=== PATIENT | female | born 1960 | race Caucasian/White ===

== ENCOUNTER 2021-06-08 09:00 | Inpatient (IN) | payer BC, MEDICARE ==
[2021-06-08] MEDS ORDERED: ROCURONIUM 10 MG/ML (5 ML VIAL) IV STA (09:02)
[2021-06-08] MEDS ORDERED: ETOMIDATE 2 MG/ML 10 ML VIAL IVP STA (09:02)
[2021-06-08] MEDS ORDERED: MIDAZOLAM 1 MG/ML 5 ML VIAL IV STA (09:02)
[2021-06-08] MEDS ORDERED: IPRATROPIUM 0.5 MG/2.5 ML NEBU INHALATION STA (09:09)
[2021-06-08] MEDS ORDERED: methylPREDNISolone SOD SUCCI 125 MG/2 ML VIAL IV STA (09:09)
[2021-06-08] MEDS ORDERED: ALBUTEROL NEBULIZED 2.5 MG/3 ML INHALATION STA (09:09)
[2021-06-08] MEDS ORDERED: SODIUM CHLORIDE 0.9% 1,000 ML IV STA (09:09)
[2021-06-08] MEDS ORDERED: SODIUM CHLORIDE 0.9% 1,000 ML IV ONE (09:19)
--- NOTE | 2021-06-08 09:27 | ED ---
General Adult HPI - General Chief complaint: Shortness of Breath Stated complaint: Respiratory failure Time Seen by Provider: 06/08/21 09:09 Source: EMS, RN notes reviewed, old records reviewed Mode of arrival: EMS Limitations: altered mental status - History of Present Illness Initial comments: 60-year-old female who presents in severe respiratory distress. History is limited only to the paramedics report. Patient had EMS call for difficulty breathing and shortness of breath. Upon arrival patient was in severe respiratory distress. Agonal respirations, cyanotic, obtunded. 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 patient was receiving respiratory Support via BVM - Related Data Allergies Allergy/AdvReac Type Severity Reaction Status Date / Time Unable to Assess Allergy Verified 06/08/21 09:13 Review of Systems ROS Statement: Those systems with pertinent positive or pertinent negative responses have been documented in the HPI. ROS Other: All systems not noted in ROS Statement are negative. Past Medical History Past Medical History: COPD History of Any Multi-Drug Resistant Organisms: Unobtainable Past Surgical History: Unable to Obtain Past Alcohol Use History: Unable to Obtain Past Drug Use History: Unable to Obtain General Exam General appearance: obtunded, in distress Eye exam: Present: normal appearance, PERRL ENT exam: Present: mucous membranes dry Neck exam: Present: normal inspection. Absent: tenderness, meningismus Respiratory exam: Present: respiratory distress, decreased breath sounds Cardiovascular Exam: Present: normal rhythm, tachycardia GI/Abdominal exam: Present: soft. Absent: distended, tenderness, guarding Extremities exam: Present: normal inspection Neurological exam: Absent: alert Skin exam: Present: cyanosis Course Vital Signs 06/08/21 06/08/21 06/08/21 09:05 09:20 09:59 Temperature 97.3 F L Pulse Rate 122 H 114 H 100 Respiratory 34 H 16 16 Rate Blood Pressure 129/78 83/55 O2 Sat by Pulse 87 L 99 99 Oximetry - Reevaluation(s) Reevaluation #1: 06/08/21 09:[address] Padilla who is able to evaluate the patient emergency department. EKG Findings - EKG Comments: EKG Findings:: EKG: Sinus tachycardia possible ischemic changes including ST segment depression and T-wave inversion, no ST segment elevation, incomplete right bundle-branch block, rate of 111, MD interval 116, QRS duration 110, QTC 422. Procedures - Intubation Sedative: Etomidate Mg Given: 10 Paralytic: Rocuronium Mg Given: 50 Laryngoscope: Bolivar Size: 3 ET Tube Size: 7.5 ET Tube Uncuffed: No Tube Secured Depth (cm): 22 Tube Secured Location: lips Tube Placement Confirmation: visualized tube passing through cords, equal breath sounds bilaterally, no breath sounds over epigastrium, confirmation by capnometry Patient Tolerated Procedure: well Intubation Complications: none Medical Decision Making - Medical Decision Making Further history is obtained from the states that her breathing significantly worsened overnight. She recently started a new medication called Opsumit, she's taken a total of 3 doses. Patient does test positive for coronavirus. She has both venous and arterial blood gas indicating a hypercarbic respiratory failure. Symptoms related to COPD, Covid pneumonia. Chest x-ray showing airspace disease on the right greater than the left, developing ARDS versus multifocal pneumonia. Case discussed with the admitting physician Dr. Story, who will admit. Pulmonology placed on consult. Previous medical records from [facility] have been requested. - Lab Data Result diagrams: 06/08/21 09:20 06/08/21 09:20 Lab Results 06/08/21 06/08/21 06/08/21 Range/Units 09:20 09:20 09:20 WBC 12.4 H (3.8-10.6) k/uL RBC 4.68 (3.80-5.40) m/uL Hgb 13.8 (11.4-16.0) gm/dL Hct 45.0 (34.0-46.0) % MCV 96.1 (80.0-100.0) fL MCH 29.5 (25.0-35.0) pg MCHC 30.7 L (31.0-37.0) g/dL RDW 15.9 H (11.5-15.5) % Plt Count 236 (150-450) k/uL MPV 7.7 Neutrophils % 87 % Lymphocytes % 5 % Monocytes % 6 % Eosinophils % 1 % Basophils % 1 % Neutrophils # 10.7 H (1.3-7.7) k/uL Lymphocytes # 0.7 L (1.0-4.8) k/uL Monocytes # 0.7 (0-1.0) k/uL Eosinophils # 0.1 (0-0.7) k/uL Basophils # 0.1 (0-0.2) k/uL Hypochromasia Moderate PT 12.3 H (9.0-12.0) sec INR 1.2 H (<1.2) APTT 25.4 (22.0-30.0) sec Sample Site ABG pH (7.35-7.45) ABG pCO2 (35-45) mmHg ABG pO2 (83-108) mmHg ABG HCO3 (21-25) mmol/L ABG Total CO2 (19-24) mmol/L ABG O2 Saturation (94-97) % ABG Base Excess mmol/L Reid Test VBG pH (7.31-7.41) VBG pCO2 (37-51) mmHg VBG HCO3 (24-28) mmol/L FiO2 % Sodium 153 H (137-145) mmol/L Potassium 3.6 (3.5-5.1) mmol/L Chloride 100 (98-107) mmol/L Carbon Dioxide 23 (22-30) mmol/L Anion Gap 30 mmol/L BUN 20 H (7-17) mg/dL Creatinine 0.88 (0.52-1.04) mg/dL Est GFR (CKD-EPI)AfAm 82 (>60 ml/min/1.73 sqM) Est GFR (CKD-EPI)NonAf 71 (>60 ml/min/1.73 sqM) Glucose 51 L (74-99) mg/dL Plasma Lactic Acid Robert (0.7-2.0) mmol/L Calcium 7.7 L (8.4-10.2) mg/dL Magnesium 2.0 (1.6-2.3) mg/dL Total Bilirubin 1.4 H (0.2-1.3) mg/dL AST 56 H (14-36) U/L ALT 38 H (4-34) U/L Alkaline Phosphatase 223 H (38-126) U/L Troponin I (0.000-0.034) ng/mL Total Protein 7.1 (6.3-8.2) g/dL Albumin 3.7 (3.5-5.0) g/dL Coronavirus (PCR) (Not Detectd) 06/08/21 06/08/21 06/08/21 Range/Units 09:20 09:20 09:20 WBC (3.8-10.6) k/uL RBC (3.80-5.40) m/uL Hgb (11.4-16.0) gm/dL Hct (34.0-46.0) % MCV (80.0-100.0) fL MCH (25.0-35.0) pg MCHC (31.0-37.0) g/dL RDW (11.5-15.5) % Plt Count (150-450) k/uL MPV Neutrophils % % Lymphocytes % % Monocytes % % Eosinophils % % Basophils % % Neutrophils # (1.3-7.7) k/uL Lymphocytes # (1.0-4.8) k/uL Monocytes # (0-1.0) k/uL Eosinophils # (0-0.7) k/uL Basophils # (0-0.2) k/uL Hypochromasia PT (9.0-12.0) sec INR (<1.2) APTT (22.0-30.0) sec Sample Site ABG pH (7.35-7.45) ABG pCO2 (35-45) mmHg ABG pO2 (83-108) mmHg ABG HCO3 (21-25) mmol/L ABG Total CO2 (19-24) mmol/L ABG O2 Saturation (94-97) % ABG Base Excess mmol/L Reid Test VBG pH 7.20 L* (7.31-7.41) VBG pCO2 74 H* (37-51) mmHg VBG HCO3 28 (24-28) mmol/L FiO2 % Sodium (137-145) mmol/L Potassium (3.5-5.1) mmol/L Chloride (98-107) mmol/L Carbon Dioxide (22-30) mmol/L Anion Gap mmol/L BUN (7-17) mg/dL Creatinine (0.52-1.04) mg/dL Est GFR (CKD-EPI)AfAm (>60 ml/min/1.73 sqM) Est GFR (CKD-EPI)NonAf (>60 ml/min/1.73 sqM) Glucose (74-99) mg/dL Plasma Lactic Acid Robert 3.2 H* (0.7-2.0) mmol/L Calcium (8.4-10.2) mg/dL Magnesium (1.6-2.3) mg/dL Total Bilirubin (0.2-1.3) mg/dL AST (14-36) U/L ALT (4-34) U/L Alkaline Phosphatase (38-126) U/L Troponin I 0.329 H* (0.000-0.034) ng/mL Total Protein (6.3-8.2) g/dL Albumin (3.5-5.0) g/dL Coronavirus (PCR) (Not Detectd) 06/08/21 06/08/21 Range/Units 09:41 09:45 WBC (3.8-10.6) k/uL RBC (3.80-5.40) m/uL Hgb (11.4-16.0) gm/dL Hct (34.0-46.0) % MCV (80.0-100.0) fL MCH (25.0-35.0) pg MCHC (31.0-37.0) g/dL RDW (11.5-15.5) % Plt Count (150-450) k/uL MPV Neutrophils % % Lymphocytes % % Monocytes % % Eosinophils % % Basophils % % Neutrophils # (1.3-7.7) k/uL Lymphocytes # (1.0-4.8) k/uL Monocytes # (0-1.0) k/uL Eosinophils # (0-0.7) k/uL Basophils # (0-0.2) k/uL Hypochromasia PT (9.0-12.0) sec INR (<1.2) APTT (22.0-30.0) sec Sample Site Right Brachial ABG pH 7.20 L (7.35-7.45) ABG pCO2 82 H* (35-45) mmHg ABG pO2 125 H (83-108) mmHg ABG HCO3 32 H (21-25) mmol/L ABG Total CO2 35 H (19-24) mmol/L ABG O2 Saturation 97.0 (94-97) % ABG Base Excess 4.4 mmol/L Reid Test Yes VBG pH (7.31-7.41) VBG pCO2 (37-51) mmHg VBG HCO3 (24-28) mmol/L FiO2 100 % Sodium (137-145) mmol/L Potassium (3.5-5.1) mmol/L Chloride (98-107) mmol/L Carbon Dioxide (22-30) mmol/L Anion Gap mmol/L BUN (7-17) mg/dL Creatinine (0.52-1.04) mg/dL Est GFR (CKD-EPI)AfAm (>60 ml/min/1.73 sqM) Est GFR (CKD-EPI)NonAf (>60 ml/min/1.73 sqM) Glucose (74-99) mg/dL Plasma Lactic Acid Robert (0.7-2.0) mmol/L Calcium (8.4-10.2) mg/dL Magnesium (1.6-2.3) mg/dL Total Bilirubin (0.2-1.3) mg/dL AST (14-36) U/L ALT (4-34) U/L Alkaline Phosphatase (38-126) U/L Troponin I (0.000-0.034) ng/mL Total Protein (6.3-8.2) g/dL Albumin (3.5-5.0) g/dL Coronavirus (PCR) Detected A (Not Detectd) Critical Care Time Critical Care Time: Yes Total Critical Care Time: 35 Disposition Clinical Impression: Acute exacerbation of chronic obstructive pulmonary disease, COVID-19 Disposition: ADMITTED IP TO THIS [facility] Condition: Serious Is patient prescribed a controlled substance at d/c from ED?: No Referrals: None,Stated [REFERRING] - 1-2 days Decision to Admit Reason: Admit from EC Decision Date: 06/08/21 Decision Time: 10:08
[2021-06-08 09:28] LABS: Basophils # (A) 0.1 k/uL (0-0.2); Basophils % (A) 1 %; Eosinophils # (A) 0.1 k/uL (0-0.7); Eosinophils % (A) 1 %; HGB 13.8 gm/dL (11.4-16.0); Hypochromasia Moderate; Lymphocytes # (A) 0.7 k/uL (1.0-4.8); Lymphocytes % (A) 5 %; MCH 29.5 pg (25.0-35.0); MCHC 30.7 g/dL (31.0-37.0); MCV 96.1 fL (80.0-100.0); Mean Platelet Volume 7.7; Monocytes # (A) 0.7 k/uL (0-1.0); Monocytes % (A) 6 %; Neutrophils # (A) 10.7 k/uL (1.3-7.7); Neutrophils % (A) 87 %; Platelet Count 236 k/uL (150-450); RBC 4.68 m/uL (3.80-5.40); RDW 15.9 % (11.5-15.5); WBC 12.4 k/uL (3.8-10.6)
[2021-06-08] MEDS: MAGNESIUM SULFATE-D5W PMX 1 GM in DEXTROSE/WATER 1 100ML.BAG IVPB SCH ×2 (09:28→10:43)
[2021-06-08 09:29] LABS: VBG PH 7.2 (7.31-7.41)
[2021-06-08 09:36] LABS: INR 1.2 (<1.2); Partial Thromboplastin Time 25.4 sec (22.0-30.0); Prothrombin Time 12.3 sec (9.0-12.0)
[2021-06-08] MEDS ORDERED: IPRATROPIUM-ALBUTEROL 3 ML NEB INHALATION PRN (09:36)
[2021-06-08 09:37] LABS: Albumin 3.7 g/dL (3.5-5.0); Calcium 7.7 mg/dL (8.4-10.2); Potassium 3.6 mmol/L (3.5-5.1); Total Bilirubin 1.4 mg/dL (0.2-1.3); Total Protein 7.1 g/dL (6.3-8.2)
[2021-06-08 09:49] LABS: ABG Base Excess 4.4 mmol/L; ABG HCO3 32 mmol/L (21-25); ABG PO2 125 mmHg (83-108); ABG TCO2 35 mmol/L (19-24); Allen Test Performed? Yes
[2021-06-08 09:52] LABS: ABG PCO2 82 mmHg (35-45)
--- NOTE | 2021-06-08 10:06 | XR ---
EXAMINATION TYPE: XR chest 1V portable DATE OF EXAM: 06/08/2021 COMPARISON: NONE HISTORY: 60 years Female. STUDY INDICATION GIVEN: martin . TECHNIQUE: Frontal chest radiograph IMPRESSION: Tip of endotracheal tube in the midthoracic trachea. Enteric tube courses into the stomach. Bilateral right greater than left interstitial opacities may be reflective of ARDS or interstitial ed adryan. Bibasilar right greater than left opacities may be reflective of atelectasis or airspace disease . The heart size is mildly enlarged. No pneumothorax or significant effusion seen. No acute osseous abnormalities seen.
[2021-06-08] MEDS ORDERED: MIDAZOLAM HCL 50 MG in SODIUM CHLORIDE 0.9% 40 ML IV SCH (10:15)
--- NOTE | 2021-06-08 11:45 | P.CNPUL ---
History of Present Illness Consult date: 06/08/21 Requesting physician: Gretchen Story Reason for consult: dyspnea, COPD, hypoxemia, pneumonia, abnormal CXR/CT Chief complaint: Respiratory arrest. History of present illness: Pulmonary/critical care consult dated 06/08/2021. 60-year-old female, was brought in by EMS, with respiratory distress and respiratory failure. The patient arrived in the emergency department and was not moving any air. She was immediately intubated by the ER physician. The patient apparently complaining of difficulty breathing and shortness of breath. She apparently has never been at this hospital before. Not much information could be obtained. She had cyanosis, agonal respirations, and was obtunded. For that reason, she was intubated. 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 She apparently was receiving bag valve mask device in route. White count 12.4, hemoglobin 13.8, hematocrit 45, platelet count 236,000. PT 12.3 INR 1.2. Blood gases initially showed a pO2 of 125, pCO2 of 82, and pH is 7.2. Sodium 153, potassium 3.6, chlorides 100, CO2 23, anion gap 30, BUN 20, creatinine 0.88. Glucose 51 lactic acid 3.2 calcium 7.7 AST 56, and ALT 38. Troponin was 0.329. Coronavirus testing was positive. Chest x-ray showed bilateral right greater than left diffuse opacities, consistent with either interstitial edema, or interstitial pneumonia. Home medications included Macitentan, albuterol inhaler, vitamin D3, Spiriva, Symbicort, Coreg, potassium chloride, Lasix, iron, Lipitor, amlodipine. Based on these home medications, the patient appears to have COPD, hypertension, and hyperlipidemia. Review of Systems REVIEW OF SYSTEMS: CONSTITUTIONAL: [Negative.] NEUROLOGIC: [ Negative.] HEENT: [ Negative.] CARDIAC: [Negative.] PULMONARY: Severe shortness of breath. GI: [Negative.] : [Negative.] RHEUMATOLOGIC: [ Negative.] IMMUNOLOGIC: [ Negative.] ENDOCRINE: [Negative. ] DERMATOLOGIC: [Negative.] Past Medical History Past Medical History: COPD History of Any Multi-Drug Resistant Organisms: Unobtainable Past Surgical History: Unable to Obtain Past Alcohol Use History: Unable to Obtain Past Drug Use History: Unable to Obtain Medications and Allergies Home Medications Medication Instructions Recorded Confirmed Type Albuterol Sulfate [Ventolin HFA] 2 puff INHALATION RT-Q6H PRN 06/08/21 06/08/21 History Aspirin 81 mg PO DAILY 06/08/21 06/08/21 History Atorvastatin [Lipitor] 20 mg PO HS 06/08/21 06/08/21 History Budesonide/Formoterol Fumarate 1 puff INHALATION RT-BID 06/08/21 06/08/21 History [Symbicort 160-4.5 Mcg Inhaler] Cholecalciferol [Vitamin D3 (125 125 mcg PO DAILY 06/08/21 06/08/21 History Mcg = 5000 Iu)] Ferrous Sulfate [Feosol] 325 mg PO DAILY 06/08/21 06/08/21 History Furosemide [Lasix] 40 mg PO BID 06/08/21 06/08/21 History Macitentan [Opsumit] 10 mg PO DAILY 06/08/21 06/08/21 History Potassium Chloride ER [K-Dur 10] 10 meq PO BID 06/08/21 06/08/21 History Tiotropium Minter [Spiriva] 1 cap INHALATION RT-DAILY 06/08/21 06/08/21 History amLODIPine [Norvasc] 2.5 mg PO DAILY 06/08/21 06/08/21 History carvediloL [Coreg] 3.125 mg PO DAILY 06/08/21 06/08/21 History Allergies Allergy/AdvReac Type Severity Reaction Status Date / Time Sulfa (Sulfonamide Allergy Unknown Verified 06/08/21 10:40 Antibiotics) Physical Exam Osteopathic Statement: *. No significant issues noted on an osteopathic structural exam other than those noted in the History and Physical/Consult. Vitals: Vital Signs Temp Pulse Resp BP Pulse Ox 06/08/21 10:50 112 H 18 104/65 93 L 06/08/21 10:39 112 H 18 99/65 93 L 06/08/21 10:25 108 H 18 101/61 95 06/08/21 10:11 105 H 18 95/61 98 06/08/21 09:59 100 16 99 06/08/21 09:20 114 H 16 83/55 99 06/08/21 09:05 97.3 F L 122 H 34 H 129/78 87 L 06/08/21 09:01 34 H Intake and Output 06/07/21 06/08/21 06/08/21 22:59 06:59 14:59 Intake Total 0.45 Output Total 10 Balance -9.55 Intake: Intake, IV Titration 0.45 Amount Midazolam HCl 50 mg In 0.45 Sodium Chloride 0.9% 40 ml @ 1 MG/HR 1 mls/hr IV .Q24H [facility] Rx#:[id number] Output: Urine 10 Uretheral (Castillo) 10 Other: Weight 73.4 kg Currently intubated, with an orally placed endotracheal tube and NG tube. The patient is poorly responsive. HEENT examination is grossly unremarkable. Neck supple. Full range of motion. No adenopathy thyromegaly or neck vein distention. Cardiovascular examination reveals regular rhythm rate. S1-S2 normal. No S3 or S4. No discernible murmur noted. Heart sounds are distant. Heart rate 112 bpm. Lungs reveal coarse bilateral rhonchi. Mild expiratory wheezes. Breath sounds equal bilaterally. No crackles. Saturations are 93%. Abdomen is soft. No bowel sounds. No masses. Extremities reveal no edema or clubbing. There is acrocyanosis. Skin reveals livedo reticularis. Neurologic examination cannot be adequately assessed as the patient's currently sedated. Results - Laboratory Findings CBC and BMP: 06/08/21 09:20 06/08/21 09:20 ABG ABG pH 7.20 (7.35-7.45) L 06/08/21 09:45 ABG pCO2 82 mmHg (35-45) H* 06/08/21 09:45 ABG pO2 125 mmHg (83-108) H 06/08/21 09:45 ABG O2 Saturation 97.0 % (94-97) 06/08/21 09:45 PT/INR, D-dimer PT 12.3 sec (9.0-12.0) H 06/08/21 09:20 INR 1.2 (<1.2) H 06/08/21 09:20 Abnormal lab findings: Abnormal Labs 06/08/21 06/08/21 06/08/21 09:20 09:20 09:20 WBC 12.4 H MCHC 30.7 L RDW 15.9 H Neutrophils # 10.7 H Lymphocytes # 0.7 L PT 12.3 H INR 1.2 H ABG pH ABG pCO2 ABG pO2 ABG HCO3 ABG Total CO2 VBG pH VBG pCO2 Sodium 153 H BUN 20 H Glucose 51 L Plasma Lactic Acid Robert Calcium 7.7 L Total Bilirubin 1.4 H AST 56 H ALT 38 H Alkaline Phosphatase 223 H Troponin I Coronavirus (PCR) 06/08/21 06/08/21 06/08/21 09:20 09:20 09:20 WBC MCHC RDW Neutrophils # Lymphocytes # PT INR ABG pH ABG pCO2 ABG pO2 ABG HCO3 ABG Total CO2 VBG pH 7.20 L* VBG pCO2 74 H* Sodium BUN Glucose Plasma Lactic Acid Robert 3.2 H* Calcium Total Bilirubin AST ALT Alkaline Phosphatase Troponin I 0.329 H* Coronavirus (PCR) 06/08/21 06/08/21 09:41 09:45 WBC MCHC RDW Neutrophils # Lymphocytes # PT INR ABG pH 7.20 L ABG pCO2 82 H* ABG pO2 125 H ABG HCO3 32 H ABG Total CO2 35 H VBG pH VBG pCO2 Sodium BUN Glucose Plasma Lactic Acid Robert Calcium Total Bilirubin AST ALT Alkaline Phosphatase Troponin I Coronavirus (PCR) Detected A - Diagnostic Findings Chest x-ray: image reviewed Assessment and Plan Assessment: Acute hypoxemic respiratory failure, likely multifactorial, in part related to underlying COPD, but also possible coronavirus associated pneumonia. History of chronic hypoxemic respiratory failure. History of pulmonary hypertension, as the patient is on Opsumit. History of hypertension. History of hyperlipidemia. Plan: Plan dated 06/08/2021. The patient will be admitted to the intensive care unit. We anticipate putting a central line in, and a arterial line in. The patient will need the vent bundle orders place, as well as ICU admission orders additional recommendations and suggestions are forthcoming. She will need Decadron, and Lovenox. She also benefit from vitamins. We will start tube feedings right away. Additional recommendations and suggestions are forthcoming. We cannot comment about REM, as we don't know how long the patient has been sick, and also, her oxygen requirements are too high. Since she is ready on the ventilator, she is not a candidate for JUAN. Time with Patient: Greater than 30
[2021-06-08] MEDS ORDERED: SODIUM CHLORIDE 0.9% 500 ML 500 ML IV ONE ×2 (11:49→12:26)
[2021-06-08] MEDS ORDERED: IPRATROPIUM-ALBUTEROL 3 ML NEB INHALATION SCH (12:00)
[2021-06-08] MEDS ORDERED: methylPREDNISolone SOD SUCCI 125 MG/2 ML VIAL IV SCH (12:00)
[2021-06-08] MEDS ORDERED: NALOXONE 0.4 MG/ML 1 ML VIAL IV PRN (12:42)
[2021-06-08] MEDS ORDERED: ONDANSETRON 4 MG/2 ML VIAL IVP PRN (12:42)
--- NOTE | 2021-06-08 12:46 | P.HPIM ---
History of Present Illness H&P Date: 06/08/21 Discharge this 60-year-old female with past medical history of COPD on 3 L oxygen admitted to the hospital for increased shortness of breath for the last day or so the patient was found to be hypercapnic in the ER and in distress and was intubated patient is currently intubated and sedated Review of systems unable to get due to the current condition of the patient Constitutional: Intubated Eyes: Anicteric sclerae, moist conjunctiva, no lid-lag PERRLA ENMT: NC/AT Oropharynx clear, no erythema, exudates Neck: Supple, FROM, no masses, or JVD No carotid bruits No thyromegaly Lungs: C wheezy no accessory muscle use Cardiovascular: Heart regular in rate and rhythm, No murmurs, gallops, or rubs No peripheral edema Abdominal: Soft Nontender, no guarding, rebound or rigidity Abdomen moving with respiration Normoactive bowel sounds No hepatomegaly, No splenomegaly No palpable mass No abdominal wall hernia noted Skin: Normal temperature, tone, texture, turgor No induration No subcutaneous nodules No rash, lesions No ulcers Extremities: No digital cyanosis No clubbing Pedal pulses intact and symmetrical Radial pulses intact and symmetrical Normal gait and station No calf tenderness Psychiatric: Sedated Neuro: Muscles Strength 5/5 in all 4 extremities Sensation to light touch grossly present throughout Cranial nerves II-XII grossly intact No focal sensory deficits Acute on chronic respiratory failure likely due to COPD exacerbation continue patient on IV steroids as recommended by pulmonology Hypercapnia due to COPD exacerbation and respiratory failure continue patient on vent support We'll check cardiac enzymes Admitted to the intensive care unit Continue management as per ICU team Past Medical History Past Medical History: COPD History of Any Multi-Drug Resistant Organisms: Unobtainable Past Surgical History: Unable to Obtain Past Alcohol Use History: Unable to Obtain Past Drug Use History: Unable to Obtain Medications and Allergies Home Medications Medication Instructions Recorded Confirmed Type Albuterol Sulfate [Ventolin HFA] 2 puff INHALATION RT-Q6H PRN 06/08/21 06/08/21 History Aspirin 81 mg PO DAILY 06/08/21 06/08/21 History Atorvastatin [Lipitor] 20 mg PO HS 06/08/21 06/08/21 History Budesonide/Formoterol Fumarate 1 puff INHALATION RT-BID 06/08/21 06/08/21 History [Symbicort 160-4.5 Mcg Inhaler] Cholecalciferol [Vitamin D3 (125 125 mcg PO DAILY 06/08/21 06/08/21 History Mcg = 5000 Iu)] Ferrous Sulfate [Feosol] 325 mg PO DAILY 06/08/21 06/08/21 History Furosemide [Lasix] 40 mg PO BID 06/08/21 06/08/21 History Macitentan [Opsumit] 10 mg PO DAILY 06/08/21 06/08/21 History Potassium Chloride ER [K-Dur 10] 10 meq PO BID 06/08/21 06/08/21 History Tiotropium Arrey [Spiriva] 1 cap INHALATION RT-DAILY 06/08/21 06/08/21 History amLODIPine [Norvasc] 2.5 mg PO DAILY 06/08/21 06/08/21 History carvediloL [Coreg] 3.125 mg PO DAILY 06/08/21 06/08/21 History Allergies Allergy/AdvReac Type Severity Reaction Status Date / Time Sulfa (Sulfonamide Allergy Unknown Verified 06/08/21 10:40 Antibiotics) Physical Exam Vitals: Vital Signs Temp Pulse Resp BP Pulse Ox 06/08/21 11:57 92 18 70/48 92 L 06/08/21 11:45 92 18 67/44 91 L 06/08/21 11:40 96 18 66/47 91 L 06/08/21 11:10 124 H 24 110/66 90 L 06/08/21 10:50 112 H 18 104/65 93 L 06/08/21 10:39 112 H 18 99/65 93 L 06/08/21 10:25 108 H 18 101/61 95 06/08/21 10:11 105 H 18 95/61 98 06/08/21 09:59 100 16 99 06/08/21 09:20 114 H 16 83/55 99 06/08/21 09:05 97.3 F L 122 H 34 H 129/78 87 L 06/08/21 09:01 34 H Intake and Output 06/07/21 06/08/21 06/08/21 22:59 06:59 14:59 Intake Total 8.250 Output Total 10 Balance -1.750 Intake: Intake, IV Titration 8.250 Amount Midazolam HCl 50 mg In 1.917 Sodium Chloride 0.9% 40 ml @ 1 MG/HR 1 mls/hr IV .Q24H [facility] Rx#:[id number] propofoL 1,000 mg In 6.333 Empty Bag 1 bag @ Titrate IV .Q0M [facility] Rx#: [id number] Output: Urine 10 Uretheral (Castillo) 10 Other: Weight 73.4 kg Results CBC & Chem 7: 06/08/21 09:20 06/08/21 09:20 Labs: Abnormal Lab Results - Last 24 Hours (Table) 06/08/21 06/08/21 06/08/21 Range/Units 09:20 09:20 09:20 WBC 12.4 H (3.8-10.6) k/uL MCHC 30.7 L (31.0-37.0) g/dL RDW 15.9 H (11.5-15.5) % Neutrophils # 10.7 H (1.3-7.7) k/uL Lymphocytes # 0.7 L (1.0-4.8) k/uL PT 12.3 H (9.0-12.0) sec INR 1.2 H (<1.2) ABG pH (7.35-7.45) ABG pCO2 (35-45) mmHg ABG pO2 (83-108) mmHg ABG HCO3 (21-25) mmol/L ABG Total CO2 (19-24) mmol/L VBG pH (7.31-7.41) VBG pCO2 (37-51) mmHg Sodium 153 H (137-145) mmol/L BUN 20 H (7-17) mg/dL Glucose 51 L (74-99) mg/dL Plasma Lactic Acid Robert (0.7-2.0) mmol/L Calcium 7.7 L (8.4-10.2) mg/dL Total Bilirubin 1.4 H (0.2-1.3) mg/dL AST 56 H (14-36) U/L ALT 38 H (4-34) U/L Alkaline Phosphatase 223 H (38-126) U/L Troponin I (0.000-0.034) ng/mL Coronavirus (PCR) (Not Detectd) 06/08/21 06/08/21 06/08/21 Range/Units 09:20 09:20 09:20 WBC (3.8-10.6) k/uL MCHC (31.0-37.0) g/dL RDW (11.5-15.5) % Neutrophils # (1.3-7.7) k/uL Lymphocytes # (1.0-4.8) k/uL PT (9.0-12.0) sec INR (<1.2) ABG pH (7.35-7.45) ABG pCO2 (35-45) mmHg ABG pO2 (83-108) mmHg ABG HCO3 (21-25) mmol/L ABG Total CO2 (19-24) mmol/L VBG pH 7.20 L* (7.31-7.41) VBG pCO2 74 H* (37-51) mmHg Sodium (137-145) mmol/L BUN (7-17) mg/dL Glucose (74-99) mg/dL Plasma Lactic Acid Robert 3.2 H* (0.7-2.0) mmol/L Calcium (8.4-10.2) mg/dL Total Bilirubin (0.2-1.3) mg/dL AST (14-36) U/L ALT (4-34) U/L Alkaline Phosphatase (38-126) U/L Troponin I 0.329 H* (0.000-0.034) ng/mL Coronavirus (PCR) (Not Detectd) 06/08/21 06/08/21 Range/Units 09:41 09:45 WBC (3.8-10.6) k/uL MCHC (31.0-37.0) g/dL RDW (11.5-15.5) % Neutrophils # (1.3-7.7) k/uL Lymphocytes # (1.0-4.8) k/uL PT (9.0-12.0) sec INR (<1.2) ABG pH 7.20 L (7.35-7.45) ABG pCO2 82 H* (35-45) mmHg ABG pO2 125 H (83-108) mmHg ABG HCO3 32 H (21-25) mmol/L ABG Total CO2 35 H (19-24) mmol/L VBG pH (7.31-7.41) VBG pCO2 (37-51) mmHg Sodium (137-145) mmol/L BUN (7-17) mg/dL Glucose (74-99) mg/dL Plasma Lactic Acid Robert (0.7-2.0) mmol/L Calcium (8.4-10.2) mg/dL Total Bilirubin (0.2-1.3) mg/dL AST (14-36) U/L ALT (4-34) U/L Alkaline Phosphatase (38-126) U/L Troponin I (0.000-0.034) ng/mL Coronavirus (PCR) Detected A (Not Detectd)
[2021-06-08] MEDS ORDERED: CISATRACURIUM 2 MG/ML 5 ML VIAL IV ONE (14:11)
--- NOTE | 2021-06-08 14:50 | PCN ---
PROCEDURE NOTE PULMONARY/CRITICAL CARE PROCEDURE NOTE: Placement of left internal jugular triple-lumen catheter. PREOPERATIVE DIAGNOSIS: Administration of fluids and pressors. POSTOPERATIVE DIAGNOSIS: Administration of fluids and pressors. OPERATORS: 1. Dr. Padilla. 2. Dr. Flowers. PROCEDURE DESCRIPTION: A universal timeout was completed verifying correct patient, procedure, site, positioning, and implant(s) or special equipment if applicable. The patient was placed in a dependent position appropriate for triple lumen catheter placement based on the vein to be cannulated. The patient's left neck was prepped and draped in sterile fashion. 1% Lidocaine was used to anesthetize the surrounding skin area. A triple lumen 9F Cordis catheter was introduced into the left internal jugular vein using Seldinger technique from the posterior approach. The catheter was threaded smoothly over the guide wire and appropriate blood return was obtained. There was blood return from all 3 ports. Each lumen of the catheter was evacuated of air and flushed with sterile saline. The catheter was then sutured in place to the skin and a sterile dressing applied by the nurse. Perfusion to the extremity distal to the point of catheter insertion was checked and found to be adequate. The patient tolerated the procedure well. A chest x-ray was ordered to check placement and rule out complication. There was no immediate complication. The patient tolerated the procedure well without difficulty. MMODL / IJN: [id number] /
--- NOTE | 2021-06-08 14:50 | PCN ---
PROCEDURE NOTE PULMONARY/CRITICAL CARE PROCEDURE NOTE: Placement of left radial arterial line. OPERATORS: 1. Dr. Padilla. 2. Dr. Flowers. PREOPERATIVE DIAGNOSIS: Frequent blood draws and blood gas monitoring. POSTOPERATIVE DIAGNOSIS: Frequent blood draws and blood gas monitoring. PROCEDURE DESCRIPTION: A universal time-out was completed verifying correct patient, procedure, site, positioning, and implant(s) or special equipment if applicable. Reid's test was performed to ensure adequate perfusion. The patient's left wrist was prepped and draped in sterile fashion. 1% Lidocaine was used to anesthetize the area. An 18G Arrow arterial line was introduced into the left radial artery. The catheter was threaded over the guide wire and the needle was removed with appropriate pulsatile blood return. There was good waveform and blood pressure reading. Blood loss was minimal. The catheter was then sutured in place to the skin and a sterile dressing applied by the nurse. Perfusion to the extremity distal to the point of catheter insertion was checked and found to be adequate. There was no immediate complication. MMODL / IJN: [id number] /
[2021-06-08] MEDS: NOREPINEPHRINE 8 MG in SODIUM CHLORIDE 0.9% 250 ML IV SCH (14:52)
--- NOTE | 2021-06-08 15:08 | XR ---
EXAMINATION TYPE: XR chest 1V portable DATE OF EXAM: 06/08/2021 COMPARISON: NONE HISTORY: Respiratory failure TECHNIQUE: 2 views upright FINDINGS: Endotracheal tube is 5 cm from the julee. There is some pulmonary interstitial edema. Hear t is enlarged. There is slight blunting of the costophrenic angles. There is nasogastric tube in the stomach. There are chest leads. There is left jugular catheter with tip in the superior vena cava. IMPRESSION: Mild congestive heart failure. No change.
[2021-06-08 15:14] LABS: ABG Base Excess -1.4 mmol/L; ABG HCO3 28 mmol/L (21-25); ABG Oxygen Saturation 94.4 % (94-97); ABG PCO2 76 mmHg (35-45); ABG PH 7.19 (7.35-7.45); ABG PO2 87 mmHg (83-108)
--- NOTE | 2021-06-08 16:32 | ECHOF ---
Referral Reason:Abnormal troponin, respiratory failure MEASUREMENTS -------- HEIGHT: 157.5 cm WEIGHT: 73.0 kg BP: RVIDd: 4.2 cm (< 3.3) IVSd: 0.9 cm (0.6 - 1.1) LVIDd: 4.0 cm (3.9 - 5.3) LVPWd: 1.8 cm (0.6 - 1.1) IVSs: 1.4 cm LVIDs: 2.6 cm LVPWs: 1.9 cm Ao Diam: 2.9 cm (2.0 - 3.7) AV Cusp: 1.8 cm (1.5 - 2.6) RAP: 15.00 mmHg RVSP: 91.06 mmHg FINDINGS -------- Sinus rhythm. Limited echo due to Covid 19 exposure. Overall left ventricular systolic function is low-normal with, an EF between 50 - 55 %. The right ventricle is severely enlarged. The right ventricular septal wall is flattened in diastol e and systole which is consistent with right ventricular volume and pressure overload. Moderate to severe tricuspid regurgitation present. There is severe pulmonary hypertension. The r ight ventricular systolic pressure, as measured by Doppler, is 91.06mmHg. CONCLUSIONS -------- 1. Limited echo due to Covid 19 exposure. 2. Overall left ventricular systolic function is low-normal with, an EF between 50 - 55 %. 3. The right ventricle is severely enlarged. 4. The right ventricular septal wall is flattened in diastole and systole which is consistent with r ight ventricular volume and pressure overload. 5. Moderate to severe tricuspid regurgitation present. 6. There is severe pulmonary hypertension. 7. The right ventricular systolic pressure, as measured by Doppler, is 91.06mmHg. [employer]: Clare Farley RDCS
[2021-06-08 18:29] LABS: Glucose,Whole Blood 115 mg/dL (75-99)
[2021-06-08] MEDS: CHLORHEXIDINE GLUCONATE 15 ML CUP MUCOUS MEM SCH (21:00)
[2021-06-09 00:21] LABS: Glucose,Whole Blood 148 mg/dL (75-99)
[2021-06-09] MEDS: NOREPINEPHRINE 8 MG in SODIUM CHLORIDE 0.9% 250 ML IV SCH ×2 (02:56→12:05)
[2021-06-09 05:07] LABS: Basophils % (A) 0 %; Eosinophils % (A) 0 %; HCT 40.5 % (34.0-46.0); HGB 12.9 gm/dL (11.4-16.0); Lymphocytes # (A) 0.4 k/uL (1.0-4.8); Lymphocytes % (A) 2 %; MCH 29.8 pg (25.0-35.0); MCHC 31.9 g/dL (31.0-37.0); MCV 93.4 fL (80.0-100.0); Mean Platelet Volume 8.7; Monocytes # (A) 0.7 k/uL (0-1.0); Monocytes % (A) 4 %; Neutrophils # (A) 16.2 k/uL (1.3-7.7); Neutrophils % (A) 93 %; Platelet Count 202 k/uL (150-450); RBC 4.34 m/uL (3.80-5.40); RDW 15.8 % (11.5-15.5); WBC 17.4 k/uL (3.8-10.6)
[2021-06-09 05:20] LABS: ALT 45 U/L (4-34); AST 65 U/L (14-36); African American GFR (CKD) >90 (>60 ml/min/1.73 sqM); Albumin 3.1 g/dL (3.5-5.0); Alkaline Phosphatase 243 U/L (38-126); Anion Gap 4 mmol/L; Blood Urea Nitrogen 27 mg/dL (7-17); Calcium 8.5 mg/dL (8.4-10.2); Carbon Dioxide 28 mmol/L (22-30); Chloride 104 mmol/L (98-107); Glucose 148 mg/dL (74-99); Non-African American GFR(CKD) 88 (>60 ml/min/1.73 sqM); Potassium 3.7 mmol/L (3.5-5.1); Sodium 136 mmol/L (137-145); Total Bilirubin 1.5 mg/dL (0.2-1.3); Total Protein 6.6 g/dL (6.3-8.2)
[2021-06-09 05:56] LABS: ABG Base Excess 1.8 mmol/L; ABG HCO3 28 mmol/L (21-25); ABG Oxygen Saturation 97.4 % (94-97); ABG PCO2 52 mmHg (35-45); ABG PH 7.34 (7.35-7.45); ABG PO2 99 mmHg (83-108); ABG TCO2 29 mmol/L (19-24)
[2021-06-09 06:12] LABS: Allen Test Performed? No
[2021-06-09 06:45] LABS: Glucose,Whole Blood 142 mg/dL (75-99)
[2021-06-09] MEDS: ZINC SULFATE 220 MG CAP PO SCH (08:08)
[2021-06-09] MEDS: CHOLECALCIFEROL 125 MCG (5000 IU) TABLET PO SCH (08:08)
[2021-06-09] MEDS: ASCORBIC ACID 500 MG TAB PO SCH (08:08)
[2021-06-09] MEDS: DEXAMETHASONE SOD PHOSPHATE 10 MG/ML 1 ML VIAL IVP SCH (08:08)
[2021-06-09] MEDS: CHLORHEXIDINE GLUCONATE 15 ML CUP MUCOUS MEM SCH ×2 (08:08→21:44)
[2021-06-09] MEDS: ENOXAPARIN 40 MG/0.4 ML SYRINGE SQ SCH (08:09)
--- NOTE | 2021-06-09 08:20 | XR ---
EXAMINATION TYPE: XR chest 1V portable DATE OF EXAM: 06/09/2021 Comparison: 06/08/2021 Clinical History: 60-year-old female Tube placement Findings: ET tube tip at the level of the medial clavicular heads. NG tube courses below the diaphragm. Left CV C tip at the cavoatrial junction. Heart mildly enlarged. Hyperinflation. Interstitial changes show sl ight improvement. Patchy bibasilar opacities persist, slightly worsened on the right. Trace pleural e ffusions persist. Impression: COPD and mild cardiomegaly. Interstitial changes show slight improvement. Small effusions as well as patchy bibasilar airspace disease persists, slightly worsened at the right base.
--- NOTE | 2021-06-09 11:20 | P.HPIM ---
History of Present Illness H&P Date: 06/09/21 his 60-year-old female with past medical history of COPD on 3 L oxygen admitted to the hospital for increased shortness of breath for the last day or so the patient was found to be hypercapnic in the ER and in distress and was intubated patient is currently intubated and sedated Review of systems unable to get due to the current condition of the patient Constitutional: Intubated Eyes: Anicteric sclerae, moist conjunctiva, no lid-lag PERRLA ENMT: NC/AT Oropharynx clear, no erythema, exudates Neck: Supple, FROM, no masses, or JVD No carotid bruits No thyromegaly Lungs: C wheezy no accessory muscle use Cardiovascular: Heart regular in rate and rhythm, No murmurs, gallops, or rubs No peripheral edema Abdominal: Soft Nontender, no guarding, rebound or rigidity Abdomen moving with respiration Normoactive bowel sounds No hepatomegaly, No splenomegaly No palpable mass No abdominal wall hernia noted Skin: Normal temperature, tone, texture, turgor No induration No subcutaneous nodules No rash, lesions No ulcers Extremities: No digital cyanosis No clubbing Pedal pulses intact and symmetrical Radial pulses intact and symmetrical Normal gait and station No calf tenderness Psychiatric: Sedated Neuro: Muscles Strength 5/5 in all 4 extremities Sensation to light touch grossly present throughout Cranial nerves II-XII grossly intact No focal sensory deficits Acute on chronic respiratory failure likely due to COPD exacerbation continue patient on IV steroids as recommended by pulmonology Hypercapnia due to COPD exacerbation and respiratory failure continue patient on vent support We'll check cardiac enzymes Admitted to the intensive care unit Continue management as per ICU team Patient continues to be intubated overall stable continue management as per ICU team Past Medical History Past Medical History: COPD History of Any Multi-Drug Resistant Organisms: Unobtainable Past Surgical History: Unable to Obtain Past Anesthesia/Blood Transfusion Reactions: Unable to Obtain Smoking Status: Former smoker Past Alcohol Use History: Unable to Obtain Past Drug Use History: Unable to Obtain Medications and Allergies Home Medications Medication Instructions Recorded Confirmed Type Albuterol Sulfate [Ventolin HFA] 2 puff INHALATION RT-Q6H PRN 06/08/21 06/08/21 History Aspirin 81 mg PO DAILY 06/08/21 06/08/21 History Atorvastatin [Lipitor] 20 mg PO HS 06/08/21 06/08/21 History Budesonide/Formoterol Fumarate 1 puff INHALATION RT-BID 06/08/21 06/08/21 History [Symbicort 160-4.5 Mcg Inhaler] Cholecalciferol [Vitamin D3 (125 125 mcg PO DAILY 06/08/21 06/08/21 History Mcg = 5000 Iu)] Ferrous Sulfate [Feosol] 325 mg PO DAILY 06/08/21 06/08/21 History Furosemide [Lasix] 40 mg PO BID 06/08/21 06/08/21 History Macitentan [Opsumit] 10 mg PO DAILY 06/08/21 06/08/21 History Potassium Chloride ER [K-Dur 10] 10 meq PO BID 06/08/21 06/08/21 History Tiotropium [place] [Spiriva] 1 cap INHALATION RT-DAILY 06/08/21 06/08/21 History amLODIPine [Norvasc] 2.5 mg PO DAILY 06/08/21 06/08/21 History carvediloL [Coreg] 3.125 mg PO DAILY 06/08/21 06/08/21 History Allergies Allergy/AdvReac Type Severity Reaction Status Date / Time Sulfa (Sulfonamide Allergy Unknown Verified 06/08/21 10:40 Antibiotics) Physical Exam Vitals: Vital Signs Temp Pulse Resp BP Pulse Ox 06/09/21 10:00 84 24 113/67 97 06/09/21 09:00 87 24 114/68 100 06/09/21 08:00 87 24 119/66 96 06/09/21 07:15 89 24 119/66 99 06/09/21 07:00 91 24 100 06/09/21 06:45 92 24 100 06/09/21 06:30 94 24 100 06/09/21 06:15 96 24 97 06/09/21 06:00 97 24 129/74 98 06/09/21 05:45 100 24 96 06/09/21 05:30 86 24 99 06/09/21 05:15 87 24 123/69 97 06/09/21 05:00 89 24 98 06/09/21 04:45 87 24 97 06/09/21 04:30 85 24 97 06/09/21 04:15 85 24 112/60 97 06/09/21 04:00 84 23 06/09/21 03:45 85 24 97 06/09/21 03:30 84 24 97 06/09/21 03:15 84 24 121/68 97 06/09/21 03:00 83 24 96 06/09/21 02:45 70 24 96 06/09/21 02:30 82 24 97 02 02:15 82 24 107/59 96 06/09/21 02:00 82 24 99/57 97 06/09/21 01:45 81 24 96 06/09/21 01:30 82 24 97 06/09/21 01:15 82 24 98 06/09/21 01:00 82 24 99/57 97 06/09/21 00:45 84 24 98 06/09/21 00:30 85 24 100 06/09/21 00:15 86 24 99 06/09/21 00:00 87 24 131/75 98 02 23:45 82 24 100 02 23:30 82 24 99 02 23:15 84 24 102/57 100 02 23:00 81 24 98 02 22:45 82 24 99 02 22:30 83 24 99 02 22:15 82 24 116/61 100 02 22:00 86 24 100 02 21:45 86 24 100 02 21:30 86 24 100 02 21:15 86 24 117/71 100 02 21:00 85 24 100 02 20:45 85 24 100 02 20:30 81 24 100 02 20:15 81 24 100 02 20:00 82 24 100 0222 19:45 81 24 99 0222 19:30 81 24 100 0222 19:15 81 24 100 02 19:00 81 24 87/51 100 0222 18:45 80 24 100 0222 18:30 80 24 100 0222 18:15 79 24 98 0222 18:00 77 24 99 0222 17:45 71 24 99 0222 17:30 71 24 100 0222 17:15 75 24 99 02 17:00 80 24 99 02 16:45 85 24 98 06/08/21 16:30 79 24 99 06/08/21 16:15 74 24 79/52 95 06/08/21 16:00 75 18 94 L 06/08/21 15:45 75 18 94 L 06/08/21 15:30 77 18 93 L 06/08/21 15:15 80 18 73/43 92 L 06/08/21 15:08 82 18 92 L 06/08/21 14:53 93 L 06/08/21 13:56 97.3 F L 105 H 18 104/66 92 L 06/08/21 13:11 98 18 80/51 93 L 06/08/21 11:57 92 18 70/48 92 L 06/08/21 11:45 92 18 67/44 91 L 06/08/21 11:40 96 18 66/47 91 L Intake and Output 06/08/21 06/09/21 06/09/21 22:59 06:59 14:59 Intake Total 4180.220 3444.543 714.337 Output Total 610 640 255 Balance 542.259 711.543 459.337 Intake: IV 1040 1040 520 Sodium Chloride 0.9% 1, 1040 1040 520 000 ml @ 130 mls/hr IV . Q7H42M [facility] Rx#:[id number] Intake, IV Titration 102.259 301.543 154.337 Amount Norepinephrine 8 mg In 56.457 201.543 154.337 Sodium Chloride 0.9% 250 ml @ 0.05 MCG/KG/MIN 7. 101 mls/hr IV .Q24H [facility] Rx#:[id number] propofoL 1,000 mg In 45.802 100 Empty Bag 1 bag @ Titrate IV .Q0M [facility] Rx#: [id number] Tube Feeding 10 10 40 Output: Urine 610 640 255 Other: Voiding Method Indwelling Catheter Indwelling Catheter Indwelling Catheter Weight 69.7 kg ABP, PAP, CO, CI - Last 8 Hours Arterial Blood Pressure 111/46 Arterial Blood Pressure 134/53 Arterial Blood Pressure 116/56 Arterial Blood Pressure 118/51 Arterial Blood Pressure 129/54 Arterial Blood Pressure 140/60 Arterial Blood Pressure 141/61 Arterial Blood Pressure 144/63 Arterial Blood Pressure 145/63 Arterial Blood Pressure 148/65 Arterial Blood Pressure 117/50 Arterial Blood Pressure 113/50 Arterial Blood Pressure 135/57 Arterial Blood Pressure 130/61 Arterial Blood Pressure 107/49 Arterial Blood Pressure 109/50 Arterial Blood Pressure 114/51 Arterial Blood Pressure 109/50 Arterial Blood Pressure 108/50 Results CBC & Chem 7: 06/09/21 04:45 06/09/21 04:45 Labs: Abnormal Lab Results - Last 24 Hours (Table) 06/08/21 06/08/21 06/08/21 Range/Units 12:26 12:26 15:01 WBC (3.8-10.6) k/uL RDW (11.5-15.5) % Neutrophils # (1.3-7.7) k/uL Lymphocytes # (1.0-4.8) k/uL ABG pH 7.19 L* (7.35-7.45) ABG pCO2 76 H* (35-45) mmHg ABG HCO3 28 H (21-25) mmol/L ABG Total CO2 (19-24) mmol/L ABG O2 Saturation (94-97) % Sodium (137-145) mmol/L BUN (7-17) mg/dL Glucose (74-99) mg/dL POC Glucose (mg/dL) (75-99) mg/dL Plasma Lactic Acid Robert 0.6 L (0.7-2.0) mmol/L Total Bilirubin (0.2-1.3) mg/dL AST (14-36) U/L ALT (4-34) U/L Alkaline Phosphatase (38-126) U/L Troponin I 0.535 H* (0.000-0.034) ng/mL Albumin (3.5-5.0) g/dL 06/08/21 06/08/21 06/09/21 Range/Units 15:45 18:28 00:20 WBC (3.8-10.6) k/uL RDW (11.5-15.5) % Neutrophils # (1.3-7.7) k/uL Lymphocytes # (1.0-4.8) k/uL ABG pH (7.35-7.45) ABG pCO2 (35-45) mmHg ABG HCO3 (21-25) mmol/L ABG Total CO2 (19-24) mmol/L ABG O2 Saturation (94-97) % Sodium (137-145) mmol/L BUN (7-17) mg/dL Glucose (74-99) mg/dL POC Glucose (mg/dL) 115 H 148 H (75-99) mg/dL Plasma Lactic Acid Robert (0.7-2.0) mmol/L Total Bilirubin (0.2-1.3) mg/dL AST (14-36) U/L ALT (4-34) U/L Alkaline Phosphatase (38-126) U/L Troponin I 0.578 H* (0.000-0.034) ng/mL Albumin (3.5-5.0) g/dL 06/09/21 06/09/21 06/09/21 Range/Units 04:45 04:45 05:29 WBC 17.4 H (3.8-10.6) k/uL RDW 15.8 H (11.5-15.5) % Neutrophils # 16.2 H (1.3-7.7) k/uL Lymphocytes # 0.4 L (1.0-4.8) k/uL ABG pH 7.34 L (7.35-7.45) ABG pCO2 52 H (35-45) mmHg ABG HCO3 28 H (21-25) mmol/L ABG Total CO2 29 H (19-24) mmol/L ABG O2 Saturation 97.4 H (94-97) % Sodium 136 L (137-145) mmol/L BUN 27 H (7-17) mg/dL Glucose 148 H (74-99) mg/dL POC Glucose (mg/dL) (75-99) mg/dL Plasma Lactic Acid Robert (0.7-2.0) mmol/L Total Bilirubin 1.5 H (0.2-1.3) mg/dL AST 65 H (14-36) U/L ALT 45 H (4-34) U/L Alkaline Phosphatase 243 H (38-126) U/L Troponin I (0.000-0.034) ng/mL Albumin 3.1 L (3.5-5.0) g/dL 06/09/21 Range/Units 06:44 WBC (3.8-10.6) k/uL RDW (11.5-15.5) % Neutrophils # (1.3-7.7) k/uL Lymphocytes # (1.0-4.8) k/uL ABG pH (7.35-7.45) ABG pCO2 (35-45) mmHg ABG HCO3 (21-25) mmol/L ABG Total CO2 (19-24) mmol/L ABG O2 Saturation (94-97) % Sodium (137-145) mmol/L BUN (7-17) mg/dL Glucose (74-99) mg/dL POC Glucose (mg/dL) 142 H (75-99) mg/dL Plasma Lactic Acid Robert (0.7-2.0) mmol/L Total Bilirubin (0.2-1.3) mg/dL AST (14-36) U/L ALT (4-34) U/L Alkaline Phosphatase (38-126) U/L Troponin I (0.000-0.034) ng/mL Albumin (3.5-5.0) g/dL Microbiology - Last 24 Hours (Table) 06/08/21 11:10 Gram Stain - Preliminary Sputum Sputum Culture - Preliminary Thrombosis Risk Factor Assmnt - Choose All That Apply Any of the Below Risk Factors Present?: Yes Each Factor Represents 1 point: Abnormal pulmonary function (COPD), Obesity (BMI >25) Other Risk Factors: Yes Each Risk Factor Represents 2 Points: Central venous access, Patient confined to bed Other congenital or acquired thrombophilia - If yes, enter type in comment: No Thrombosis Risk Factor Assessment Total Risk Factor Score: 6 Thrombosis Risk Factor Assessment Level: High Risk
--- NOTE | 2021-06-09 11:44 | P.CRDCN ---
History of Present Illness Consult date: 06/09/21 History of present illness: . This is a 66-year-old female was brought to the emergency room by EMS in respiratory distress. Apparently patient was having patient has history of oxygen dependent COPD initial blood gas showed PaO2 of 125, pCO2 of 82 and pH of 7.2.BUN/creatinine are within normal limits. Patient chest x-ray showed interstitial changes and possible infiltrate at bases. Patient needed intubation and subsequent admission to intensive care unit. She is also diagnosed to have COVID infection. Patient troponin are mildly elevated but the pattern is not consistent with acute myocardial infarction. Her EKG showed sinus rhythm with evidence of right ventricular hypertrophy and also diffuse ST- T abnormalities. The troponin and EKG changes most probably are related to supply demand mismatch. Echocardiogram showed severely dilated right ventricle with severe pulmonary hypertension. Left trigger function appear to be fairly preserved. Patient is not personally examined. Most of the information is gathered from senior talent management consultant notes and nurses. Her proBNP is also elevated. I would continue with diuretics, antibiotics and treatment for Covid pneumonia. No acute cardiac intervention at this time. Prognosis is guarded Review of Systems as per the chart Past Medical History Past Medical History: COPD History of Any Multi-Drug Resistant Organisms: Unobtainable Past Surgical History: Unable to Obtain Past Anesthesia/Blood Transfusion Reactions: Unable to Obtain Smoking Status: Former smoker Past Alcohol Use History: Unable to Obtain Past Drug Use History: Unable to Obtain Medications and Allergies Home Medications Medication Instructions Recorded Confirmed Type Albuterol Sulfate [Ventolin HFA] 2 puff INHALATION RT-Q6H PRN 06/08/21 06/08/21 History Aspirin 81 mg PO DAILY 06/08/21 06/08/21 History Atorvastatin [Lipitor] 20 mg PO HS 06/08/21 06/08/21 History Budesonide/Formoterol Fumarate 1 puff INHALATION RT-BID 06/08/21 06/08/21 History [Symbicort 160-4.5 Mcg Inhaler] Cholecalciferol [Vitamin D3 (125 125 mcg PO DAILY 06/08/21 06/08/21 History Mcg = 5000 Iu)] Ferrous Sulfate [Feosol] 325 mg PO DAILY 06/08/21 06/08/21 History Furosemide [Lasix] 40 mg PO BID 06/08/21 06/08/21 History Macitentan [Opsumit] 10 mg PO DAILY 06/08/21 06/08/21 History Potassium Chloride ER [K-Dur 10] 10 meq PO BID 06/08/21 06/08/21 History Tiotropium [place] [Spiriva] 1 cap INHALATION RT-DAILY 06/08/21 06/08/21 History amLODIPine [Norvasc] 2.5 mg PO DAILY 06/08/21 06/08/21 History carvediloL [Coreg] 3.125 mg PO DAILY 06/08/21 06/08/21 History Allergies Allergy/AdvReac Type Severity Reaction Status Date / Time Sulfa (Sulfonamide Allergy Unknown Verified 06/08/21 10:40 Antibiotics) Physical Exam Vitals: Vital Signs Temp Pulse Resp BP Pulse Ox 06/09/21 10:00 84 24 113/67 97 06/09/21 09:00 87 24 114/68 100 06/09/21 08:00 87 24 119/66 96 06/09/21 07:15 89 24 119/66 99 06/09/21 07:00 91 24 100 06/09/21 06:45 92 24 100 06/09/21 06:30 94 24 100 06/09/21 06:15 96 24 97 06/09/21 06:00 97 24 129/74 98 06/09/21 05:45 100 24 96 06/09/21 05:30 86 24 99 06/09/21 05:15 87 24 123/69 97 06/09/21 05:00 89 24 98 06/09/21 04:45 87 24 97 06/09/21 04:30 85 24 97 06/09/21 04:15 85 24 112/60 97 06/09/21 04:00 84 23 06/09/21 03:45 85 24 97 06/09/21 03:30 84 24 97 06/09/21 03:15 84 24 121/68 97 06/09/21 03:00 83 24 96 06/09/21 02:45 70 24 96 06/09/21 02:30 82 24 97 06/09/21 02:15 82 24 107/59 96 06/09/21 02:00 82 24 99/57 97 06/09/21 01:45 81 24 96 06/09/21 01:30 82 24 97 06/09/21 01:15 82 24 98 06/09/21 01:00 82 24 99/57 97 06/09/21 00:45 84 24 98 06/09/21 00:30 85 24 100 06/09/21 00:15 86 24 99 06/09/21 00:00 87 24 131/75 98 06/08/21 23:45 82 24 100 06/08/21 23:30 82 24 99 06/08/21 23:15 84 24 102/57 100 06/08/21 23:00 81 24 98 06/08/21 22:45 82 24 99 06/08/21 22:30 83 24 99 06/08/21 22:15 82 24 116/61 100 06/08/21 22:00 86 24 100 06/08/21 21:45 86 24 100 06/08/21 21:30 86 24 100 06/08/21 21:15 86 24 117/71 100 06/08/21 21:00 85 24 100 06/08/21 20:45 85 24 100 06/08/21 20:30 81 24 100 06/08/21 20:15 81 24 100 06/08/21 20:00 82 24 100 06/08/21 19:45 81 24 99 06/08/21 19:30 81 24 100 06/08/21 19:15 81 24 100 06/08/21 19:00 81 24 87/51 100 06/08/21 18:45 80 24 100 06/08/21 18:30 80 24 100 06/08/21 18:15 79 24 98 06/08/21 18:00 77 24 99 06/08/21 17:45 71 24 99 06/08/21 17:30 71 24 100 06/08/21 17:15 75 24 99 06/08/21 17:00 80 24 99 06/08/21 16:45 85 24 98 06/08/21 16:30 79 24 99 06/08/21 16:15 74 24 79/52 95 06/08/21 16:00 75 18 94 L 06/08/21 15:45 75 18 94 L 06/08/21 15:30 77 18 93 L 06/08/21 15:15 80 18 73/43 92 L 06/08/21 15:08 82 18 92 L 06/08/21 14:53 93 L 06/08/21 13:56 97.3 F L 105 H 18 104/66 92 L 06/08/21 13:11 98 18 80/51 93 L 06/08/21 11:57 92 18 70/48 92 L 06/08/21 11:45 92 18 67/44 91 L 06/08/21 11:40 96 18 66/47 91 L Intake and Output 06/08/21 06/09/21 06/09/21 22:59 06:59 14:59 Intake Total 2170.248 8612.543 714.337 Output Total 610 640 255 Balance 542.259 711.543 459.337 Intake: IV 1040 1040 520 Sodium Chloride 0.9% 1, 1040 1040 520 000 ml @ 130 mls/hr IV . Q7H42M [facility] Rx#:[id number] Intake, IV Titration 102.259 301.543 154.337 Amount Norepinephrine 8 mg In 56.457 201.543 154.337 Sodium Chloride 0.9% 250 ml @ 0.05 MCG/KG/MIN 7. 101 mls/hr IV .Q24H [facility] Rx#:[id number] propofoL 1,000 mg In 45.802 100 Empty Bag 1 bag @ Titrate IV .Q0M [facility] Rx#: [id number] Tube Feeding 10 10 40 Output: Urine 610 640 255 Other: Voiding Method Indwelling Catheter Indwelling Catheter Indwelling Catheter Weight 69.7 kg ABP, PAP, CO, CI - Last 8 Hours Arterial Blood Pressure 111/46 Arterial Blood Pressure 134/53 Arterial Blood Pressure 116/56 Arterial Blood Pressure 118/51 Arterial Blood Pressure 129/54 Arterial Blood Pressure 140/60 Arterial Blood Pressure 141/61 Arterial Blood Pressure 144/63 Arterial Blood Pressure 145/63 Arterial Blood Pressure 148/65 Arterial Blood Pressure 117/50 Arterial Blood Pressure 113/50 Arterial Blood Pressure 135/57 Arterial Blood Pressure 130/61 Arterial Blood Pressure 107/49 Arterial Blood Pressure 109/50 Arterial Blood Pressure 114/51 Arterial Blood Pressure 109/50 This patient is not personally examined. Information is gathered from the chart and senior talent management consultant notes Results 06/09/21 04:45 06/09/21 04:45 Cardiac Enzymes 06/08/21 06/08/21 06/09/21 Range/Units 12:26 15:45 04:45 AST 65 H (14-36) U/L Troponin I 0.535 H* 0.578 H* (0.000-0.034) ng/mL CBC 06/09/21 Range/Units 04:45 WBC 17.4 H (3.8-10.6) k/uL RBC 4.34 (3.80-5.40) m/uL Hgb 12.9 (11.4-16.0) gm/dL Hct 40.5 (34.0-46.0) % Plt Count 202 (150-450) k/uL Comprehensive Metabolic Panel 06/09/21 Range/Units 04:45 Sodium 136 L (137-145) mmol/L Potassium 3.7 (3.5-5.1) mmol/L Chloride 104 (98-107) mmol/L Carbon Dioxide 28 (22-30) mmol/L BUN 27 H (7-17) mg/dL Creatinine 0.74 (0.52-1.04) mg/dL Glucose 148 H (74-99) mg/dL Calcium 8.5 (8.4-10.2) mg/dL AST 65 H (14-36) U/L ALT 45 H (4-34) U/L Alkaline Phosphatase 243 H (38-126) U/L Total Protein 6.6 (6.3-8.2) g/dL Albumin 3.1 L (3.5-5.0) g/dL Current Medications Generic Name Dose Route Start Last Admin Trade Name Freq PRN Reason Stop Dose Admin Acetaminophen 650 mg 06/08/21 12:42 Acetaminophen Tab 325 Mg Tab PO Q6HR PRN Mild Pain or Fever > 100.5 Ascorbic Acid 1,000 mg 06/09/21 09:00 06/09/21 08:08 Ascorbic Acid 500 Mg Tab PO 1,000 mg DAILY [facility] Administration Chlorhexidine Gluconate 15 ml 06/08/21 21:00 06/09/21 08:08 Chlorhexidine Gluconate 15 Ml Cup MUCOUS MEM 15 ml BID [facility] Administration Cholecalciferol 125 mcg 06/09/21 09:00 06/09/21 08:08 Cholecalciferol 125 Mcg (5000 Iu) Tablet PO 125 mcg DAILY [facility] Administration Dexamethasone Sodium Phosphate 6 mg 06/09/21 09:00 06/09/21 08:08 Dexamethasone Sod Phosphate 10 Mg/Ml 1 Ml Vial IVP 6 mg DAILY [facility] Administration Enoxaparin Sodium 40 mg 06/09/21 09:00 06/09/21 08:09 Enoxaparin 40 Mg/0.4 Ml Syringe SQ 40 mg DAILY [facility] Administration Propofol 1,000 mg/ IV Solution 100 mls @ 0 mls/hr 06/08/21 11:30 06/09/21 02:56 IV 30 mcg/kg/min .Q0M [facility] 13.212 mls/hr Administration Protocol Titrate Norepinephrine Bitartrate 8 mg 258 mls @ 7.101 mls/hr 06/08/21 14:45 06/09/21 09:00 / Sodium Chloride IV 0.14 mcg/kg/min .Q24H [facility] 19.884 mls/hr Titration Protocol 0.05 MCG/KG/MIN Naloxone HCl 0.2 mg 06/08/21 12:42 Naloxone 0.4 Mg/Ml 1 Ml Vial IV Q2M PRN Opioid Reversal Ondansetron HCl 4 mg 06/08/21 12:42 Ondansetron 4 Mg/2 Ml Vial IVP Q8HR PRN Nausea And Vomiting Zinc Sulfate 220 mg 06/09/21 09:00 06/09/21 08:08 Zinc Sulfate 220 Mg Cap PO 220 mg DAILY [facility] Administration Intake and Output 06/08/21 06/09/21 06/09/21 22:59 06:59 14:59 Intake Total 4103.925 8828.543 714.337 Output Total 610 640 255 Balance 542.259 711.543 459.337 Intake: IV 1040 1040 520 Sodium Chloride 0.9% 1, 1040 1040 520 000 ml @ 130 mls/hr IV . Q7H42M [facility] Rx#:[id number] Intake, IV Titration 102.259 301.543 154.337 Amount Norepinephrine 8 mg In 56.457 201.543 154.337 Sodium Chloride 0.9% 250 ml @ 0.05 MCG/KG/MIN 7. 101 mls/hr IV .Q24H [facility] Rx#:[id number] propofoL 1,000 mg In 45.802 100 Empty Bag 1 bag @ Titrate IV .Q0M [facility] Rx#: [id number] Tube Feeding 10 10 40 Output: Urine 610 640 255 Other: Voiding Method Indwelling Catheter Indwelling Catheter Indwelling Catheter Weight 69.7 kg 06/09/21 04:45 06/09/21 04:45 EKG Interpretations (text) sinus rhythm with evidence of right ventricular hypertrophy and diffuse ST-T changes Assessment and Plan (1) Troponin level elevated Current Visit: Yes Status: Acute Code(s): R77.8 - OTHER SPECIFIED ABNORMALITIES OF PLASMA PROTEINS SNOMED Code(s): 990531120 (2) Acute exacerbation of chronic obstructive pulmonary disease Current Visit: Yes Status: Acute Code(s): J44.1 - CHRONIC OBSTRUCTIVE PULMONARY DISEASE W (ACUTE) EXACERBATION SNOMED Code(s): 641638945 (3) COVID-19 Current Visit: Yes Status: Acute Code(s): U07.1 - COVID-19 SNOMED Code(s): 340544443 (4) Acute diastolic CHF (congestive heart failure) Current Visit: Yes Status: Acute Code(s): I50.31 - ACUTE DIASTOLIC (CONGESTIVE) HEART FAILURE SNOMED Code(s): 519293458 Plan: continue current management. No acute cardiac intervention. Prognosis is guarded
--- NOTE | 2021-06-09 11:53 | P.PN ---
Subjective Progress Note Date: 06/09/21 Principal diagnosis: Respiratory failure. Pulmonary/critical care consult dated 06/08/2021. 60-year-old female, was brought in by EMS, with respiratory distress and respiratory failure. The patient arrived in the emergency department and was not moving any air. She was immediately intubated by the ER physician. The patient apparently complaining of difficulty breathing and shortness of breath. She apparently has never been at this hospital before. Not much information could be obtained. She had cyanosis, agonal respirations, and was obtunded. For that reason, she was intubated. 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 She apparently was receiving bag valve mask device in route. White count 12.4, hemoglobin 13.8, hematocrit 45, platelet count 236,000. PT 12.3 INR 1.2. Blood gases initially showed a pO2 of 125, pCO2 of 82, and pH is 7.2. Sodium 153, potassium 3.6, chlorides 100, CO2 23, anion gap 30, BUN 20, creatinine 0.88. Glucose 51 lactic acid 3.2 calcium 7.7 AST 56, and ALT 38. Troponin was 0.329. Coronavirus testing was positive. Chest x-ray showed bilateral right greater than left diffuse opacities, consistent with either interstitial edema, or interstitial pneumonia. Home medications included Macitentan, albuterol inhaler, vitamin D3, Spiriva, Symbicort, Coreg, potassium chloride, Lasix, iron, Lipitor, amlodipine. Based on these home medications, the patient appears to have COPD, hypertension, and hyperlipidemia. Progress note dated 06/09/2021. The patient was seen yesterday in consultation. She essentially came in with respiratory failure, was intubated in the emergency department, by the ER physician. The patient has severe oxygen-dependent COPD, and remains on the ventilator. She is seen today in room 261. She is currently on volume assist control, with a rate of 24, tidal volume 400, FiO2 70%, and PEEP of 10. Blood gases show pO2 of 99, pCO2 of 52, and a pH is 7.34. The patient's getting saline at 130 mL an hour, norepinephrine at 0.16 mcg/kg/m, and propofol at 40 mcg/kg/m. She was also started on tube feedings, with vital AF, at 10 mL an hour. Her goal rate has not yet been determined by dietary. White count 17.4, hemoglobin 12.9, hematocrit 40.5, platelet count 302,000. Sodium 136, potassium 3.7, chlorides 104, CO2 28, anion gap 4, BUN 27, creatinine 0.74. AST of 65. ALT is 45. Albumin is 3.1. Chest x-ray shows changes of COPD, and mild cardiomegaly, with some minimal interstitial changes. There is some patchy infiltrates, right base greater than left. Objective - Vital Signs Vital signs: Vital Signs Temp 97.3 F L 06/08/21 13:56 Pulse 82 06/09/21 11:00 Resp 24 06/09/21 11:00 BP 107/56 06/09/21 11:00 Pulse Ox 96 06/09/21 11:00 Intake & Output 06/08/21 06/09/21 06/09/21 18:59 06:59 18:59 Intake Total 043.689 4277.543 848.424 Output Total 350 910 255 Balance 296.191 971.543 593.424 Weight 73.4 kg 69.7 kg Intake: IV 520 1560 520 Sodium Chloride 0.9% 1, 520 1560 520 000 ml @ 130 mls/hr IV . Q7H42M [facility] Rx#:[id number] Intake, IV Titration 126.191 301.543 288.424 Amount Midazolam HCl 50 mg In 1.917 Sodium Chloride 0.9% 40 ml @ 1 MG/HR 1 mls/hr IV .Q24H [facility] Rx#:[id number] Norepinephrine 8 mg In 56.457 201.543 188.424 Sodium Chloride 0.9% 250 ml @ 0.05 MCG/KG/MIN 7. 101 mls/hr IV .Q24H [facility] Rx#:[id number] propofoL 1,000 mg In 67.817 100 100.000 Empty Bag 1 bag @ Titrate IV .Q0M [facility] Rx#: [id number] Tube Feeding 20 40 Output: Urine 350 910 255 Uretheral (Castillo) 10 Other: Voiding Method Indwelling Catheter Indwelling Catheter Indwelling Catheter ABP, PAP, CO, CI - Last Documented Arterial Blood Pressure 115/48 - Exam Currently intubated, with an orally placed endotracheal tube and NG tube. The patient is sedated, and not responsive. HEENT examination is grossly unremarkable. Neck supple. Full range of motion. No adenopathy thyromegaly or neck vein distention. A left internal jugular triple-lumen catheter is noted. Cardiovascular examination reveals regular rhythm rate. S1-S2 normal. No S3 or S4. No discernible murmur noted. Heart sounds are distant. Heart rate 82 bpm. Lungs reveal coarse bilateral rhonchi. Mild expiratory wheezes. Breath sounds equal bilaterally. No crackles. Saturations are 96%. Abdomen is soft. No bowel sounds. No masses. Extremities reveal no edema or clubbing. Acrocyanosis is improved. Skin reveals livedo reticularis. Neurologic examination cannot be adequately assessed as the patient's currently sedated. - Labs CBC & Chem 7: 06/09/21 04:45 06/09/21 04:45 Labs: Abnormal Lab Results - Last 24 Hours (Table) 06/08/21 06/08/21 06/08/21 Range/Units 12:26 12:26 15:01 WBC (3.8-10.6) k/uL RDW (11.5-15.5) % Neutrophils # (1.3-7.7) k/uL Lymphocytes # (1.0-4.8) k/uL ABG pH 7.19 L* (7.35-7.45) ABG pCO2 76 H* (35-45) mmHg ABG HCO3 28 H (21-25) mmol/L ABG Total CO2 (19-24) mmol/L ABG O2 Saturation (94-97) % Sodium (137-145) mmol/L BUN (7-17) mg/dL Glucose (74-99) mg/dL POC Glucose (mg/dL) (75-99) mg/dL Plasma Lactic Acid Robert 0.6 L (0.7-2.0) mmol/L Total Bilirubin (0.2-1.3) mg/dL AST (14-36) U/L ALT (4-34) U/L Alkaline Phosphatase (38-126) U/L Troponin I 0.535 H* (0.000-0.034) ng/mL Albumin (3.5-5.0) g/dL 06/08/21 06/08/21 06/09/21 Range/Units 15:45 18:28 00:20 WBC (3.8-10.6) k/uL RDW (11.5-15.5) % Neutrophils # (1.3-7.7) k/uL Lymphocytes # (1.0-4.8) k/uL ABG pH (7.35-7.45) ABG pCO2 (35-45) mmHg ABG HCO3 (21-25) mmol/L ABG Total CO2 (19-24) mmol/L ABG O2 Saturation (94-97) % Sodium (137-145) mmol/L BUN (7-17) mg/dL Glucose (74-99) mg/dL POC Glucose (mg/dL) 115 H 148 H (75-99) mg/dL Plasma Lactic Acid Robert (0.7-2.0) mmol/L Total Bilirubin (0.2-1.3) mg/dL AST (14-36) U/L ALT (4-34) U/L Alkaline Phosphatase (38-126) U/L Troponin I 0.578 H* (0.000-0.034) ng/mL Albumin (3.5-5.0) g/dL 06/09/21 06/09/21 06/09/21 Range/Units 04:45 04:45 05:29 WBC 17.4 H (3.8-10.6) k/uL RDW 15.8 H (11.5-15.5) % Neutrophils # 16.2 H (1.3-7.7) k/uL Lymphocytes # 0.4 L (1.0-4.8) k/uL ABG pH 7.34 L (7.35-7.45) ABG pCO2 52 H (35-45) mmHg ABG HCO3 28 H (21-25) mmol/L ABG Total CO2 29 H (19-24) mmol/L ABG O2 Saturation 97.4 H (94-97) % Sodium 136 L (137-145) mmol/L BUN 27 H (7-17) mg/dL Glucose 148 H (74-99) mg/dL POC Glucose (mg/dL) (75-99) mg/dL Plasma Lactic Acid Robert (0.7-2.0) mmol/L Total Bilirubin 1.5 H (0.2-1.3) mg/dL AST 65 H (14-36) U/L ALT 45 H (4-34) U/L Alkaline Phosphatase 243 H (38-126) U/L Troponin I (0.000-0.034) ng/mL Albumin 3.1 L (3.5-5.0) g/dL 06/09/21 Range/Units 06:44 WBC (3.8-10.6) k/uL RDW (11.5-15.5) % Neutrophils # (1.3-7.7) k/uL Lymphocytes # (1.0-4.8) k/uL ABG pH (7.35-7.45) ABG pCO2 (35-45) mmHg ABG HCO3 (21-25) mmol/L ABG Total CO2 (19-24) mmol/L ABG O2 Saturation (94-97) % Sodium (137-145) mmol/L BUN (7-17) mg/dL Glucose (74-99) mg/dL POC Glucose (mg/dL) 142 H (75-99) mg/dL Plasma Lactic Acid Robert (0.7-2.0) mmol/L Total Bilirubin (0.2-1.3) mg/dL AST (14-36) U/L ALT (4-34) U/L Alkaline Phosphatase (38-126) U/L Troponin I (0.000-0.034) ng/mL Albumin (3.5-5.0) g/dL Microbiology - Last 24 Hours (Table) 06/08/21 11:10 Gram Stain - Preliminary Sputum Sputum Culture - Preliminary Assessment and Plan Assessment: Acute hypoxemic respiratory failure, likely multifactorial, in part related to underlying COPD, but also possible coronavirus associated pneumonia. History of chronic hypoxemic respiratory failure. History of pulmonary hypertension, as the patient is on Opsumit. History of hypertension. History of hyperlipidemia. Plan: Plan dated 06/08/2021. The patient will be admitted to the intensive care unit. We anticipate putting a central line in, and a arterial line in. The patient will need the vent b undle orders place, as well as ICU admission orders additional recommendations and suggestions are forthcoming. She will need Decadron, and Lovenox. She also benefit from vitamins. We will start tube feedings right away. Additional recommendations and suggestions are forthcoming. We cannot comment about REM, as we don't know how long the patient has been sick, and also, her oxygen requirements are too high. Since she is ready on the ventilator, she is not a candidate for JUAN. Plan dated 06/08/2021. A central line and arterial line were placed yesterday. The patient is on Decadron, and Lovenox. The patient remains on the mechanical ventilator. She has been sedated with propofol. She also was on norepinephrine at 0.16 mcg/kg/m. She's getting saline at 130 mL an hour, and all labs, medications, and x-rays are reviewed. She is getting tube feedings with vital AF at 10 mL an hour. The patient is also getting appropriate vitamins, and the form of vitamin C, vitamin D3, and zinc. Additional recommendations and suggestions are forthcoming. Prognosis is guarded. We will continue to follow make recommendations where appropriate. Time with Patient: Greater than 30
[2021-06-09 12:16] LABS: Glucose,Whole Blood 143 mg/dL (75-99)
[2021-06-09 17:44] LABS: Glucose,Whole Blood 200 mg/dL (75-99)
[2021-06-10 04:43] LABS: Glucose,Whole Blood 137 mg/dL (75-99)
[2021-06-10 04:56] LABS: Anisocytosis Slight; HCT 40.9 % (34.0-46.0); HGB 12.6 gm/dL (11.4-16.0); MCH 28.7 pg (25.0-35.0); MCHC 30.9 g/dL (31.0-37.0); MCV 92.7 fL (80.0-100.0); Mean Platelet Volume 8.5; Platelet Count 225 k/uL (150-450); RDW 16.6 % (11.5-15.5); WBC 15.1 k/uL (3.8-10.6)
[2021-06-10 05:06] LABS: ALT 38 U/L (4-34); AST 38 U/L (14-36); African American GFR (CKD) >90 (>60 ml/min/1.73 sqM); Albumin 3.1 g/dL (3.5-5.0); Alkaline Phosphatase 219 U/L (38-126); Anion Gap 5 mmol/L; Blood Urea Nitrogen 20 mg/dL (7-17); Calcium 8.7 mg/dL (8.4-10.2); Carbon Dioxide 26 mmol/L (22-30); Chloride 108 mmol/L (98-107); Glucose 146 mg/dL (74-99); Non-African American GFR(CKD) >90 (>60 ml/min/1.73 sqM); Potassium 3.8 mmol/L (3.5-5.1); Sodium 139 mmol/L (137-145); Total Bilirubin 1.2 mg/dL (0.2-1.3); Total Protein 6.7 g/dL (6.3-8.2)
[2021-06-10 05:34] LABS: ABG Base Excess 4.5 mmol/L; ABG HCO3 29 mmol/L (21-25); ABG Oxygen Saturation 93.6 % (94-97); ABG PCO2 45 mmHg (35-45); ABG PH 7.42 (7.35-7.45); ABG PO2 70 mmHg (83-108); ABG TCO2 30 mmol/L (19-24); Allen Test Performed? Yes
[2021-06-10] MEDS: ZINC SULFATE 220 MG CAP PO SCH (08:29)
[2021-06-10] MEDS: ASCORBIC ACID 500 MG TAB PO SCH (08:30)
[2021-06-10] MEDS: CHLORHEXIDINE GLUCONATE 15 ML CUP MUCOUS MEM SCH ×2 (08:31→19:43)
[2021-06-10] MEDS: ENOXAPARIN 40 MG/0.4 ML SYRINGE SQ SCH (08:31)
[2021-06-10] MEDS: CHOLECALCIFEROL 125 MCG (5000 IU) TABLET PO SCH (08:31)
[2021-06-10] MEDS: DEXAMETHASONE SOD PHOSPHATE 10 MG/ML 1 ML VIAL IVP SCH (08:32)
--- NOTE | 2021-06-10 08:56 | XR ---
EXAMINATION TYPE: XR chest 1V portable DATE OF EXAM: 06/10/2021 COMPARISON: 06/09/2021 INDICATION: Tube placement TECHNIQUE: Single frontal view of the chest is obtained. FINDINGS: The heart size is normal. The pulmonary vasculature is upper limits of normal. Mild right lower lobe infiltrate is present. There is elevation of the left diaphragm. Small left ple ural effusion may be present. Endotracheal tube tip is above the julee. Left central venous catheter tips in the distal superior v elisabeth cava region. Nasogastric tube transverses the thorax. IMPRESSION: 1. Bibasilar infiltrates similar to comparison. 2. Improving pulmonary vascular markings. 3. Multiple lines and catheters discussed above
[2021-06-10 11:07] LABS: Allen Test Performed? YES
[2021-06-10 11:52] LABS: Glucose,Whole Blood 97 mg/dL (75-99)
--- NOTE | 2021-06-10 12:52 | P.PN ---
Subjective Progress Note Date: 06/10/21 Principal diagnosis: Acute hypoxic respiratory failure secondary to COVID-19 pneumonia and underlying COPD. Pulmonary/critical care consult dated 06/08/2021. 60-year-old female, was brought in by EMS, with respiratory distress and respiratory failure. The patient arrived in the emergency department and was not moving any air. She was immediately intubated by the ER physician. The patient apparently complaining of difficulty breathing and shortness of breath. She apparently has never been at this hospital before. Not much information could be obtained. She had cyanosis, agonal respirations, and was obtunded. For that reason, she was intubated. 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 She apparently was receiving bag valve mask device in route. White count 12.4, hemoglobin 13.8, hematocrit 45, platelet count 236,000. PT 12.3 INR 1.2. Blood gases initially showed a pO2 of 125, pCO2 of 82, and pH is 7.2. Sodium 153, potassium 3.6, chlorides 100, CO2 23, anion gap 30, BUN 20, creatinine 0.88. Glucose 51 lactic acid 3.2 calcium 7.7 AST 56, and ALT 38. Troponin was 0.329. Coronavirus testing was positive. Chest x-ray showed bilateral right greater than left diffuse opacities, consistent with either interstitial edema, or interstitial pneumonia. Home medications included Macitentan, albuterol inhaler, vitamin D3, Spiriva, Symbicort, Coreg, potassium chloride, Lasix, iron, Lipitor, amlodipine. Based on these home medications, the patient appears to have COPD, hypertension, and hyperlipidemia. Progress note dated 06/09/2021. The patient was seen yesterday in consultation. She essentially came in with respiratory failure, was intubated in the emergency department, by the ER physician. The patient has severe oxygen-dependent COPD, and remains on the ventilator. She is seen today in room 261. She is currently on volume assist control, with a rate of 24, tidal volume 400, FiO2 70%, and PEEP of 10. Blood gases show pO2 of 99, pCO2 of 52, and a pH is 7.34. The patient's getting saline at 130 mL an hour, norepinephrine at 0.16 mcg/kg/m, and propofol at 40 mcg/kg/m. She was also started on tube feedings, with vital AF, at 10 mL an hour. Her goal rate has not yet been determined by dietary. White count 17.4, hemoglobin 12.9, hematocrit 40.5, platelet count 302,000. Sodium 136, potassium 3.7, chlorides 104, CO2 28, anion gap 4, BUN 27, creatinine 0.74. AST of 65. ALT is 45. Albumin is 3.1. Chest x-ray shows changes of COPD, and mild cardiomegaly, with some minimal interstitial changes. There is some patchy in filtrates, right base greater than left. Reevaluated today on 06/10/2021, patient remains in the ICU, intubated, mechanically ventilated, sedated, but not paralyzed. Patient is on assist control rate of 24 tidal volume 400 FiO2 50% PEEP of 10. ABG showed a pO2 of 70 pCO2 45 pH of 7.42, hence no changes were made in the present ventilator settings. Patient is on propofol at 40 mcg/kg/m, not requiring any pressors at this point, norepinephrine has been discontinued apparently. She is on vital AF at goal. Her BNP level today is 8740 troponin is 0.578. Electrolytes are normal renal profile is normal chest x-ray continues to show by basilar infiltrates. And her echocardiogram showed severe pulmonary hypertension. D- dimer is pending. If elevated, may consider venous Doppler and CT angiogram of the chest. However if not elevated there is no reason to pursue this any further, we'll continue Lovenox as ordered. Chest x-ray continues to show by basilar infiltrates, and there is slight improvement in her pulmonary vasculature. Objective - Vital Signs Vital signs: Vital Signs Temp 99.3 F 06/10/21 04:00 Pulse 78 06/10/21 10:00 Resp 24 06/10/21 10:00 BP 107/55 06/10/21 10:00 Pulse Ox 93 L 06/10/21 10:00 Intake & Output 06/09/21 06/10/21 06/10/21 18:59 06:59 18:59 Intake Total 2003.476 924.999 210 Output Total 805 665 170 Balance 1198.476 259.999 40 Weight 74.8 kg Intake: IV 1300 520 80 KVO 0.9 NS 520 80 Sodium Chloride 0.9% 1, 1300 000 ml @ 130 mls/hr IV . Q7H42M [facility] Rx#:[id number] Intake, IV Titration 583.476 274.999 100 Amount Norepinephrine 8 mg In 383.476 99.165 Sodium Chloride 0.9% 250 ml @ 0.05 MCG/KG/MIN 7. 101 mls/hr IV .Q24H [facility] Rx#:[id number] propofoL 1,000 mg In 200.000 175.834 100 Empty Bag 1 bag @ Titrate IV .Q0M [facility] Rx#: [id number] Tube Feeding 120 70 30 Other 60 Output: Urine 805 665 170 Other: Voiding Method Indwelling Catheter Indwelling Catheter Indwelling Catheter ABP, PAP, CO, CI - Last Documented Arterial Blood Pressure 142/61 - Exam Physical Exam revealed 60-year-old female intubated mechanically ventilated sedated, but not paralyzed. Head: Atraumatic, normocephalic. Endotracheal tube and orogastric tube are intact. HEENT:[Neck is supple.] [No neck masses.] [No thyromegaly.] [No JVD.] Chest: [Symmetrical chest expansion crackles at the bases no rhonchi and no wheezes.] Cardiac Exam: [Normal S1 and S2, no S3 gallop, no murmur.] Abdomen: [Soft, nontender, no megaly, no rebound, no guarding, normal bowel sounds.] Extremities: [No clubbing, no edema, no cyanosis.] Neurological Exam: [Cannot assess, patient is fully sedated. Psychiatric: Could not assess patient is fully sedated. Musculoskeletal, no deformities, normal muscle tone. Skin: No rashes. - Labs CBC & Chem 7: 06/10/21 04:35 06/10/21 04:35 Labs: Abnormal Lab Results - Last 24 Hours (Table) 06/09/21 06/10/21 06/10/21 Range/Units 17:42 04:35 04:35 WBC 15.1 H (3.8-10.6) k/uL MCHC 30.9 L (31.0-37.0) g/dL RDW 16.6 H (11.5-15.5) % ABG pO2 (83-108) mmHg ABG HCO3 (21-25) mmol/L ABG Total CO2 (19-24) mmol/L ABG O2 Saturation (94-97) % Chloride 108 H (98-107) mmol/L BUN 20 H (7-17) mg/dL Glucose 146 H (74-99) mg/dL POC Glucose (mg/dL) 200 H (75-99) mg/dL AST 38 H (14-36) U/L ALT 38 H (4-34) U/L Alkaline Phosphatase 219 H (38-126) U/L Albumin 3.1 L (3.5-5.0) g/dL 06/10/21 06/10/21 Range/Units 04:41 05:30 WBC (3.8-10.6) k/uL MCHC (31.0-37.0) g/dL RDW (11.5-15.5) % ABG pO2 70 L (83-108) mmHg ABG HCO3 29 H (21-25) mmol/L ABG Total CO2 30 H (19-24) mmol/L ABG O2 Saturation 93.6 L (94-97) % Chloride (98-107) mmol/L BUN (7-17) mg/dL Glucose (74-99) mg/dL POC Glucose (mg/dL) 137 H (75-99) mg/dL AST (14-36) U/L ALT (4-34) U/L Alkaline Phosphatase (38-126) U/L Albumin (3.5-5.0) g/dL Microbiology - Last 24 Hours (Table) 06/08/21 10:00 Blood Culture - Preliminary Blood No Growth after 48 hours 06/08/21 10:09 Blood Culture - Preliminary Blood No Growth after 48 hours 06/08/21 11:10 Gram Stain - Final Sputum Sputum Culture - Final Assessment and Plan Assessment: Impression: Acute on chronic hypoxic respiratory failure secondary to COVID-19 pneumonia and secondary to underlying COPD Chronic hypoxic respiratory failure secondary to COPD History of pulmonary hypertension, patient is on opsumit Benign essential hypertension. Dyslipidemia. Recommendation: Continue ventilatory support. Continue GI and DVT prophylaxis. Continue COVID-19 cocktail. Continue sedation, avoid paralysis if possible. Continue present ventilator settings as ordered. Continue to monitor daily x-rays. Continue Decadron on Lovenox. Hemodynamic support if necessary. Patient is likely out of the window for Remdesivir. Patient is not a candidate for Baricitinib. Prognosis is guarded, we'll continue to follow. Critical care time is over 30 minutes Time with Patient: Greater than 30
[2021-06-10 12:53] LABS: Glucose,Whole Blood 115 mg/dL (75-99)
--- NOTE | 2021-06-10 13:07 | P.PN ---
Subjective Progress Note Date: 06/10/21 Principal diagnosis: 60-year-old female with past medical history of COPD on 3 L oxygen admitted to the hospital for increased shortness of breath for the last day or so the patient was found to be hypercapnic in the ER and in distress and was intubated patient is currently intubated and sedated Review of systems unable to get due to the current condition of the patient Constitutional: Intubated Eyes: Anicteric sclerae, moist conjunctiva, no lid-lag PERRLA ENMT: NC/AT Oropharynx clear, no erythema, exudates Neck: Supple, FROM, no masses, or JVD No carotid bruits No thyromegaly Lungs: C wheezy no accessory muscle use Cardiovascular: Heart regular in rate and rhythm, No murmurs, gallops, or rubs No peripheral edema Abdominal: Soft Nontender, no guarding, rebound or rigidity Abdomen moving with respiration Normoactive bowel sounds No hepatomegaly, No splenomegaly No palpable mass No abdominal wall hernia noted Skin: Normal temperature, tone, texture, turgor No induration No subcutaneous nodules No rash, lesions No ulcers Extremities: No digital cyanosis No clubbing Pedal pulses intact and symmetrical Radial pulses intact and symmetrical Normal gait and station No calf tenderness Psychiatric: Sedated Neuro: Muscles Strength 5/5 in all 4 extremities Sensation to light touch grossly present throughout Cranial nerves II-XII grossly intact No focal sensory deficits Acute on chronic respiratory failure likely due to COPD exacerbation continue patient on IV steroids as recommended by pulmonology Hypercapnia due to COPD exacerbation and respiratory failure continue patient on vent support We'll check cardiac enzymes Admitted to the intensive care unit Continue management as per ICU team Patient continues to be intubated overall stable continue management as per ICU team Patient continued to be intubated COVID-19 infection Objective - Vital Signs Vital signs: Vital Signs Temp 98.8 F 06/10/21 12:00 Pulse 89 06/10/21 12:00 Resp 24 06/10/21 12:00 BP 129/74 06/10/21 12:00 Pulse Ox 97 06/10/21 12:00 Intake & Output 06/09/21 06/10/21 06/10/21 18:59 06:59 18:59 Intake Total 2003.476 924.999 210 Output Total 805 665 170 Balance 1198.476 259.999 40 Weight 74.8 kg Intake: IV 1300 520 80 KVO 0.9 NS 520 80 Sodium Chloride 0.9% 1, 1300 000 ml @ 130 mls/hr IV . Q7H42M [facility] Rx#:[id number] Intake, IV Titration 583.476 274.999 100 Amount Norepinephrine 8 mg In 383.476 99.165 Sodium Chloride 0.9% 250 ml @ 0.05 MCG/KG/MIN 7. 101 mls/hr IV .Q24H [facility] Rx#:[id number] propofoL 1,000 mg In 200.000 175.834 100 Empty Bag 1 bag @ Titrate IV .Q0M [facility] Rx#: [id number] Tube Feeding 120 70 30 Other 60 Output: Urine 805 665 170 Other: Voiding Method Indwelling Catheter Indwelling Catheter Indwelling Catheter ABP, PAP, CO, CI - Last Documented Arterial Blood Pressure 137/58 - Labs CBC & Chem 7: 06/10/21 04:35 06/10/21 04:35 Labs: Abnormal Lab Results - Last 24 Hours (Table) 06/09/21 06/10/21 06/10/21 Range/Units 17:42 04:35 04:35 WBC 15.1 H (3.8-10.6) k/uL MCHC 30.9 L (31.0-37.0) g/dL RDW 16.6 H (11.5-15.5) % ABG pO2 (83-108) mmHg ABG HCO3 (21-25) mmol/L ABG Total CO2 (19-24) mmol/L ABG O2 Saturation (94-97) % Chloride 108 H (98-107) mmol/L BUN 20 H (7-17) mg/dL Glucose 146 H (74-99) mg/dL POC Glucose (mg/dL) 200 H (75-99) mg/dL AST 38 H (14-36) U/L ALT 38 H (4-34) U/L Alkaline Phosphatase 219 H (38-126) U/L Albumin 3.1 L (3.5-5.0) g/dL 06/10/21 06/10/21 06/10/21 Range/Units 04:41 05:30 12:52 WBC (3.8-10.6) k/uL MCHC (31.0-37.0) g/dL RDW (11.5-15.5) % ABG pO2 70 L (83-108) mmHg ABG HCO3 29 H (21-25) mmol/L ABG Total CO2 30 H (19-24) mmol/L ABG O2 Saturation 93.6 L (94-97) % Chloride (98-107) mmol/L BUN (7-17) mg/dL Glucose (74-99) mg/dL POC Glucose (mg/dL) 137 H 115 H (75-99) mg/dL AST (14-36) U/L ALT (4-34) U/L Alkaline Phosphatase (38-126) U/L Albumin (3.5-5.0) g/dL Microbiology - Last 24 Hours (Table) 06/08/21 10:00 Blood Culture - Preliminary Blood No Growth after 48 hours 06/08/21 10:09 Blood Culture - Preliminary Blood No Growth after 48 hours 06/08/21 11:10 Gram Stain - Final Sputum Sputum Culture - Final
[2021-06-10] MEDS: NOREPINEPHRINE 8 MG in SODIUM CHLORIDE 0.9% 250 ML IV SCH (14:00)
--- NOTE | 2021-06-10 14:02 | CDI ---
Documentation Clarification Form Date: 06/10/2021 01:34:09 PM From: Regine Maloney RN CCDS Admit Date: 06/08/2021 09:36:00 AM Patient Name: Paz Diaz Visit Number: [id number] Discharge Date: ATTENTION: The Clinical Documentation Specialists (CDI) and [facility] Coding Staff appreciate your assistance in clarifying documentation. Please respond to the clarification below the line at the bottom and electronically sign. The CDI & [facility] Coding staff will review the response and follow-up if needed. Please note: Queries are made part of the Legal Health Record. If you have any questions, please contact the author of this message via ITS. Reed Freeman MD The patient presented with the following clinical indicators. Additional clarification regarding the etiology/cause of the clinical indicators is requested. History/Risk Factors: 60- year old female presents to the ED via EMS for Shortness of Breath. The patient was in severe respiratory distress with agonal respirations, cyanotic and obtunded. Oxygen support via BVM. Medical History: COPD. 06/08, H&P. Clinical Indicators: WBC: 12.4 Lactic acid: 3.2 Covid 19 PCR: Detected. Blood cultures: 06/10 No growth after 48 hours Vitals signs: 06/08 B/P 129/78, HR 122, Temp 97.3 F Axillary, SpO2 87% BVM. CXR 06/08: Bilateral right greater than left interstitial opacities. Treatment: 06/08 current Norepinephrine Bitrate 8mg 258mls @ 8.101 mls/hr IV 0.05mcg/kg/min; 06/09 to current Vitamin D3 125mcg PO Daily; 06/09 to current Decadron 6mg IVP Daily; 06/08 Magnesium Sulfate Dextrose 1gm IVPB x bags; 06/09 to current Zinc 220mg PO Daily. IV Bolus: 06/08 0.9NS 500cc IV bolus x1; 06/08 0.9NS 500cc IV bolus x 1; 0.9NS 1,000mls IV x 1; In your professional opinion, please clarify if these findings signify one of the following conditions: [ X ] Sepsis with Septic POA [ ] Sepsis ruled out [ ] SIRS, without underlying infectious process [ ] Other, please specify [ ] Unable to determine SIRS Criteria: 2 or more of the following may indicate SIRS -Temperature < 96.8F (36C) or > 101.0F (38.3C) -Heart Rate > 90 bpm -Respiratory Rate > 20 breaths/min or PaCO2 < 32 mmHg -White Blood Cell Count > 12,000 or < 4,000 cells/mm3 or > 10% bands (Template Last Reviewed: May 2020) ISHMAELD
[2021-06-10 19:02] LABS: Glucose,Whole Blood 130 mg/dL (75-99)
[2021-06-10 23:50] LABS: Glucose,Whole Blood 118 mg/dL (75-99)
[2021-06-11 04:31] LABS: Anisocytosis Slight; Basophils % (A) 0 %; Eosinophils # (A) 0.1 k/uL (0-0.7); Eosinophils % (A) 1 %; HCT 36.2 % (34.0-46.0); HGB 11.7 gm/dL (11.4-16.0); Hypochromasia Slight; Lymphocytes # (A) 0.4 k/uL (1.0-4.8); Lymphocytes % (A) 3 %; MCH 29.9 pg (25.0-35.0); MCHC 32.3 g/dL (31.0-37.0); MCV 92.7 fL (80.0-100.0); Mean Platelet Volume 9.1; Monocytes # (A) 0.5 k/uL (0-1.0); Monocytes % (A) 4 %; Neutrophils # (A) 11.6 k/uL (1.3-7.7); Neutrophils % (A) 92 %; Platelet Count 187 k/uL (150-450); RDW 16.7 % (11.5-15.5); WBC 12.6 k/uL (3.8-10.6)
[2021-06-11 04:58] LABS: ALT 29 U/L (4-34); AST 24 U/L (14-36); African American GFR (CKD) >90 (>60 ml/min/1.73 sqM); Albumin 2.8 g/dL (3.5-5.0); Alkaline Phosphatase 176 U/L (38-126); Anion Gap 0 mmol/L; Blood Urea Nitrogen 23 mg/dL (7-17); Calcium 8.8 mg/dL (8.4-10.2); Carbon Dioxide 29 mmol/L (22-30); Chloride 108 mmol/L (98-107); Glucose 129 mg/dL (74-99); Non-African American GFR(CKD) >90 (>60 ml/min/1.73 sqM); Potassium 4.2 mmol/L (3.5-5.1); Sodium 137 mmol/L (137-145); Total Bilirubin 0.7 mg/dL (0.2-1.3); Total Protein 6.1 g/dL (6.3-8.2)
[2021-06-11 05:45] LABS: Glucose,Whole Blood 121 mg/dL (75-99)
[2021-06-11 06:16] LABS: ABG Base Excess 4.9 mmol/L; ABG HCO3 30 mmol/L (21-25); ABG Oxygen Saturation 93.2 % (94-97); ABG PCO2 51 mmHg (35-45); ABG PH 7.38 (7.35-7.45); ABG PO2 72 mmHg (83-108); ABG TCO2 32 mmol/L (19-24); Allen Test Performed? Yes
[2021-06-11] MEDS: ZINC SULFATE 220 MG CAP PO SCH (08:34)
[2021-06-11] MEDS: ENOXAPARIN 40 MG/0.4 ML SYRINGE SQ SCH (08:34)
[2021-06-11] MEDS: CHOLECALCIFEROL 125 MCG (5000 IU) TABLET PO SCH (08:34)
[2021-06-11] MEDS: CHLORHEXIDINE GLUCONATE 15 ML CUP MUCOUS MEM SCH ×2 (08:34→20:05)
[2021-06-11] MEDS: ASCORBIC ACID 500 MG TAB PO SCH (08:34)
[2021-06-11] MEDS: DEXAMETHASONE SOD PHOSPHATE 10 MG/ML 1 ML VIAL IVP SCH (08:35)
--- NOTE | 2021-06-11 09:03 | XR ---
EXAMINATION TYPE: XR chest 1V portable DATE OF EXAM: 06/11/2021 Comparison: 06/10/2021 Clinical History: 60-year-old female Tube placement Findings: ET tube tip at the level of the medial clavicular heads. Left CVC tip at the cavoatrial junction. NG tube satisfactory. Heart mildly enlarged. Hyperinflation. Continued small left greater than right ple ural effusions with adjacent basilar opacity. Interstitial prominence persists. Impression: Correlate for ongoing CHF with pulmonary vascular congestion. Small left greater than right pleural e ffusions with adjacent atelectasis and/or consolidation. Background COPD.
[2021-06-11] MEDS ORDERED: RX INFO: IV CONTRAST WAS GIVEN 1 EACH MISC MISCELLANE PRN (11:01)
[2021-06-11 11:32] LABS: Glucose,Whole Blood 101 mg/dL (75-99)
--- NOTE | 2021-06-11 12:58 | P.PN ---
Subjective Progress Note Date: 06/11/21 CC: intubated Patient remains intubated and sedated. She is currently on FiO2 75% and PEEP of 10 Objective - Vital Signs Vital signs: Vital Signs Temp 98.4 F 06/11/21 12:00 Pulse 87 06/11/21 12:00 Resp 24 06/11/21 12:00 BP 127/74 06/11/21 04:00 Pulse Ox 91 L 06/11/21 12:00 Intake & Output 06/10/21 06/11/21 06/11/21 18:59 06:59 18:59 Intake Total 643.677 949.308 429.240 Output Total 455 385 200 Balance 188.677 564.308 229.240 Weight 74.8 kg 73.4 kg Intake: IV 240 240 120 KVO 0.9 NS 240 240 120 Intake, IV Titration 183.677 289.308 99.240 Amount Norepinephrine 8 mg In 1.989 50.377 5.563 Sodium Chloride 0.9% 250 ml @ 0.05 MCG/KG/MIN 7. 101 mls/hr IV .Q24H [facility] Rx#:[id number] propofoL 1,000 mg In 181.688 238.931 93.677 Empty Bag 1 bag @ Titrate IV .Q0M [facility] Rx#: [id number] Tube Feeding 220 330 180 Other 90 30 Output: Urine 455 385 200 Other: Voiding Method Indwelling Catheter Indwelling Catheter Indwelling Catheter ABP, PAP, CO, CI - Last Documented Arterial Blood Pressure 152/65 - Exam General examination -intubated and sedated Heart - + S1S2 no murmurs Lungs -diminished breath sounds Abdomen soft NT ND +ve BS Extremities - No edema SPOT SPRAYER -unable to assess Psych -unable to assess - Labs CBC & Chem 7: 06/11/21 04:23 06/11/21 04:23 Labs: Abnormal Lab Results - Last 24 Hours (Table) 06/10/21 06/10/21 06/10/21 Range/Units 13:20 19:00 23:49 WBC (3.8-10.6) k/uL RDW (11.5-15.5) % Neutrophils # (1.3-7.7) k/uL Lymphocytes # (1.0-4.8) k/uL D-Dimer 2.03 H (<0.60) mg/L FEU ABG pCO2 (35-45) mmHg ABG pO2 (83-108) mmHg ABG HCO3 (21-25) mmol/L ABG Total CO2 (19-24) mmol/L ABG O2 Saturation (94-97) % Chloride (98-107) mmol/L BUN (7-17) mg/dL Glucose (74-99) mg/dL POC Glucose (mg/dL) 130 H 118 H (75-99) mg/dL Alkaline Phosphatase (38-126) U/L Total Protein (6.3-8.2) g/dL Albumin (3.5-5.0) g/dL 06/11/21 06/11/21 06/11/21 Range/Units 04:23 04:23 05:33 WBC 12.6 H (3.8-10.6) k/uL RDW 16.7 H (11.5-15.5) % Neutrophils # 11.6 H (1.3-7.7) k/uL Lymphocytes # 0.4 L (1.0-4.8) k/uL D-Dimer (<0.60) mg/L FEU ABG pCO2 51 H (35-45) mmHg ABG pO2 72 L (83-108) mmHg ABG HCO3 30 H (21-25) mmol/L ABG Total CO2 32 H (19-24) mmol/L ABG O2 Saturation 93.2 L (94-97) % Chloride 108 H (98-107) mmol/L BUN 23 H (7-17) mg/dL Glucose 129 H (74-99) mg/dL POC Glucose (mg/dL) (75-99) mg/dL Alkaline Phosphatase 176 H (38-126) U/L Total Protein 6.1 L (6.3-8.2) g/dL Albumin 2.8 L (3.5-5.0) g/dL 06/11/21 06/11/21 Range/Units 05:43 11:30 WBC (3.8-10.6) k/uL RDW (11.5-15.5) % Neutrophils # (1.3-7.7) k/uL Lymphocytes # (1.0-4.8) k/uL D-Dimer (<0.60) mg/L FEU ABG pCO2 (35-45) mmHg ABG pO2 (83-108) mmHg ABG HCO3 (21-25) mmol/L ABG Total CO2 (19-24) mmol/L ABG O2 Saturation (94-97) % Chloride (98-107) mmol/L BUN (7-17) mg/dL Glucose (74-99) mg/dL POC Glucose (mg/dL) 121 H 101 H (75-99) mg/dL Alkaline Phosphatase (38-126) U/L Total Protein (6.3-8.2) g/dL Albumin (3.5-5.0) g/dL Microbiology - Last 24 Hours (Table) 06/08/21 10:00 Blood Culture - Preliminary Blood No Growth after 72 hours 06/08/21 10:09 Blood Culture - Preliminary Blood No Growth after 72 hours 06/08/21 11:10 Gram Stain - Final Sputum Sputum Culture - Final Assessment and Plan Assessment: #Acute on chronic hypoxic respiratory failure secondary to COVID-19 pneumonia and secondary to underlying COPD -Vent management as per tire cord weaver -Continue Decadron and Lovenox -Patient is outside the window remdesivir -Per tire cord weaver patient is not a candidate for baricitinib #Chronic hypoxic respiratory failure secondary to COPD -Patient had baseline is that the liters at home Chronic conditions #History of pulmonary hypertension, patient is on opsumit #Benign essential hypertension. #Dyslipidemia. -Stable
--- NOTE | 2021-06-11 13:47 | P.PN ---
Subjective Progress Note Date: 06/11/21 Principal diagnosis: Acute hypoxic respiratory failure secondary to COVID-19 pneumonia and underlying COPD. Pulmonary/critical care consult dated 06/08/2021. 60-year-old female, was brought in by EMS, with respiratory distress and respiratory failure. The patient arrived in the emergency department and was not moving any air. She was immediately intubated by the ER physician. The patient apparently complaining of difficulty breathing and shortness of breath. She apparently has never been at this hospital before. Not much information could be obtained. She had cyanosis, agonal respirations, and was obtunded. For that reason, she was intubated. 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 She apparently was receiving bag valve mask device in route. White count 12.4, hemoglobin 13.8, hematocrit 45, platelet count 236,000. PT 12.3 INR 1.2. Blood gases initially showed a pO2 of 125, pCO2 of 82, and pH is 7.2. Sodium 153, potassium 3.6, chlorides 100, CO2 23, anion gap 30, BUN 20, creatinine 0.88. Glucose 51 lactic acid 3.2 calcium 7.7 AST 56, and ALT 38. Troponin was 0.329. Coronavirus testing was positive. Chest x-ray showed bilateral right greater than left diffuse opacities, consistent with either interstitial edema, or interstitial pneumonia. Home medications included Macitentan, albuterol inhaler, vitamin D3, Spiriva, Symbicort, Coreg, potassium chloride, Lasix, iron, Lipitor, amlodipine. Based on these home medications, the patient appears to have COPD, hypertension, and hyperlipidemia. Progress note dated 06/09/2021. The patient was seen yesterday in consultation. She essentially came in with respiratory failure, was intubated in the emergency department, by the ER physician. The patient has severe oxygen-dependent COPD, and remains on the ventilator. She is seen today in room 261. She is currently on volume assist control, with a rate of 24, tidal volume 400, FiO2 70%, and PEEP of 10. Blood gases show pO2 of 99, pCO2 of 52, and a pH is 7.34. The patient's getting saline at 130 mL an hour, norepinephrine at 0.16 mcg/kg/m, and propofol at 40 mcg/kg/m. She was also started on tube feedings, with vital AF, at 10 mL an hour. Her goal rate has not yet been determined by dietary. White count 17.4, hemoglobin 12.9, hematocrit 40.5, platelet count 302,000. Sodium 136, potassium 3.7, chlorides 104, CO2 28, anion gap 4, BUN 27, creatinine 0.74. AST of 65. ALT is 45. Albumin is 3.1. Chest x-ray shows changes of COPD, and mild cardiomegaly, with some minimal interstitial changes. There is some patchy in filtrates, right base greater than left. Reevaluated today on 06/10/2021, patient remains in the ICU, intubated, mechanically ventilated, sedated, but not paralyzed. Patient is on assist control rate of 24 tidal volume 400 FiO2 50% PEEP of 10. ABG showed a pO2 of 70 pCO2 45 pH of 7.42, hence no changes were made in the present ventilator settings. Patient is on propofol at 40 mcg/kg/m, not requiring any pressors at this point, norepinephrine has been discontinued apparently. She is on vital AF at goal. Her BNP level today is 8740 troponin is 0.578. Electrolytes are normal renal profile is normal chest x-ray continues to show by basilar infiltrates. And her echocardiogram showed severe pulmonary hypertension. D- dimer is pending. If elevated, may consider venous Doppler and CT angiogram of the chest. However if not elevated there is no reason to pursue this any further, we'll continue Lovenox as ordered. Chest x-ray continues to show by basilar infiltrates, and there is slight improvement in her pulmonary vasculature. Reevaluated today on 06/11/2021, patient remains in the ICU, she is intubated and mechanically ventilated. Patient is on assist control rate of 24 tidal volume 400 FiO2 was 75% and I cut it down to 60% and a increased the PEEP to 14. Patient desaturated last night, hence the nurses and respiratory therapists have been going up on her FiO2, today I decided to increase the PEEP and cut down FiO2 to 60%. ABG on 75% and PEEP of 10 and showed a pO2 of 72 pCO2 51 pH of 7.38. Chest x-ray does not show much of a change in her bilateral infiltrates, d-dimer seems to be a bit elevated, hence I went ahead and recommended CT angiogram of the chest. Patient remains on propofol at 40 she is off norepinephrine remains on vital HPI 50 mL per hour. WBC count today is 1.6 hemoglobin is 11.7. A left lens are normal renal profile is normal Objective - Vital Signs Vital signs: Vital Signs Temp 98.4 F 06/11/21 12:00 Pulse 87 06/11/21 12:00 Resp 24 06/11/21 12:00 BP 127/74 06/11/21 04:00 Pulse Ox 91 L 06/11/21 12:00 Intake & Output 06/10/21 06/11/21 06/11/21 18:59 06:59 18:59 Intake Total 643.677 949.308 429.240 Output Total 455 385 200 Balance 188.677 564.308 229.240 Weight 74.8 kg 73.4 kg 73.4 kg Intake: IV 240 240 120 KVO 0.9 NS 240 240 120 Intake, IV Titration 183.677 289.308 99.240 Amount Norepinephrine 8 mg In 1.989 50.377 5.563 Sodium Chloride 0.9% 250 ml @ 0.05 MCG/KG/MIN 7. 101 mls/hr IV .Q24H RUFINO Rx#:[id number] propofoL 1,000 mg In 181.688 238.931 93.677 Empty Bag 1 bag @ Titrate IV .Q0M RUFINO Rx#: [id number] Tube Feeding 220 330 180 Other 90 30 Output: Urine 455 385 200 Other: Voiding Method Indwelling Catheter Indwelling Catheter Indwelling Catheter ABP, PAP, CO, CI - Last Documented Arterial Blood Pressure 152/65 - Exam Physical Exam revealed 60-year-old female intubated mechanically ventilated sedated, Head: Atraumatic, normocephalic. Endotracheal tube and orogastric tube are intact. HEENT:[Neck is supple.] [No neck masses.] [No thyromegaly.] [No JVD.] Chest: [Symmetrical chest expansion crackles at the bases no rhonchi and no wheezes.] Cardiac Exam: [Normal S1 and S2, no S3 gallop, no murmur.] Abdomen: [Soft, nontender, no megaly, no rebound, no guarding, normal bowel sounds.] Extremities: [No clubbing, no edema, no cyanosis.] Neurological Exam: [Cannot assess, patient is fully sedated. Psychiatric: Could not assess patient is fully sedated. Musculoskeletal, no deformities, normal muscle tone. Skin: No rashes. - Labs CBC & Chem 7: 06/11/21 04:23 06/11/21 04:23 Labs: Abnormal Lab Results - Last 24 Hours (Table) 06/10/21 06/10/21 06/10/21 Range/Units 13:20 19:00 23:49 WBC (3.8-10.6) k/uL RDW (11.5-15.5) % Neutrophils # (1.3-7.7) k/uL Lymphocytes # (1.0-4.8) k/uL D-Dimer 2.03 H (<0.60) mg/L FEU ABG pCO2 (35-45) mmHg ABG pO2 (83-108) mmHg ABG HCO3 (21-25) mmol/L ABG Total CO2 (19-24) mmol/L ABG O2 Saturation (94-97) % Chloride (98-107) mmol/L BUN (7-17) mg/dL Glucose (74-99) mg/dL POC Glucose (mg/dL) 130 H 118 H (75-99) mg/dL Alkaline Phosphatase (38-126) U/L Total Protein (6.3-8.2) g/dL Albumin (3.5-5.0) g/dL 06/11/21 06/11/21 06/11/21 Range/Units 04:23 04:23 05:33 WBC 12.6 H (3.8-10.6) k/uL RDW 16.7 H (11.5-15.5) % Neutrophils # 11.6 H (1.3-7.7) k/uL Lymphocytes # 0.4 L (1.0-4.8) k/uL D-Dimer (<0.60) mg/L FEU ABG pCO2 51 H (35-45) mmHg ABG pO2 72 L (83-108) mmHg ABG HCO3 30 H (21-25) mmol/L ABG Total CO2 32 H (19-24) mmol/L ABG O2 Saturation 93.2 L (94-97) % Chloride 108 H (98-107) mmol/L BUN 23 H (7-17) mg/dL Glucose 129 H (74-99) mg/dL POC Glucose (mg/dL) (75-99) mg/dL Alkaline Phosphatase 176 H (38-126) U/L Total Protein 6.1 L (6.3-8.2) g/dL Albumin 2.8 L (3.5-5.0) g/dL 06/11/21 06/11/21 Range/Units 05:43 11:30 WBC (3.8-10.6) k/uL RDW (11.5-15.5) % Neutrophils # (1.3-7.7) k/uL Lymphocytes # (1.0-4.8) k/uL D-Dimer (<0.60) mg/L FEU ABG pCO2 (35-45) mmHg ABG pO2 (83-108) mmHg ABG HCO3 (21-25) mmol/L ABG Total CO2 (19-24) mmol/L ABG O2 Saturation (94-97) % Chloride (98-107) mmol/L BUN (7-17) mg/dL Glucose (74-99) mg/dL POC Glucose (mg/dL) 121 H 101 H (75-99) mg/dL Alkaline Phosphatase (38-126) U/L Total Protein (6.3-8.2) g/dL Albumin (3.5-5.0) g/dL Microbiology - Last 24 Hours (Table) 06/08/21 10:00 Blood Culture - Preliminary Blood No Growth after 72 hours 06/08/21 10:09 Blood Culture - Preliminary Blood No Growth after 72 hours 06/08/21 11:10 Gram Stain - Final Sputum Sputum Culture - Final Assessment and Plan Assessment: Impression: Acute on chronic hypoxic respiratory failure secondary to COVID-19 pneumonia and secondary to underlying COPD Chronic hypoxic respiratory failure secondary to COPD History of pulmonary hypertension, patient is on opsumit Benign essential hypertension. Dyslipidemia. Recommendation: CT angiogram of the chest was ordered today because of her worsening pulmonary status, not truly explained by her chest x-ray appearance. Continue ventilatory support, increase PEEP to 14 cut down her FiO2 to 60%. Continue GI and DVT prophylaxis. Continue COVID-19 cocktail. Continue sedation/propofol. Continue to monitor daily x-rays. Continue Decadron, continue Lovenox Patient is likely out of the window for Remdesivir. Patient is not a candidate for Baricitinib. Prognosis is guarded, we'll continue to follow. Critical care time is over 30 minutes Time with Patient: Greater than 30
--- NOTE | 2021-06-11 13:52 | CT ---
EXAMINATION TYPE: CT chest angio for PE DATE OF EXAM: 06/11/2021 COMPARISON: Chest x-ray same date HISTORY: Respiratory failure CT DLP: 473.2 mGycm Automated exposure control for dose reduction was used. CONTRAST: CT Chest for pulmonary embolism performed with with IV Contrast, patient injected with 72 mL of Isovu e 370. FINDINGS: LUNGS: The lungs show prominent appearance interstitium. Bilateral pleural effusions are present righ t greater than left, there is associated compressive atelectasis versus pneumonia at the lung bases. Difficult to exclude some underlying nodularity, subpleural spiculated abnormality present on axial i mage 60 in the right upper lobe is noted measuring approximately 8 mm. Centrilobular emphysematous ch anges are present. Endotracheal tube is within the trachea in appropriate position. MEDIASTINUM: There is satisfactory enhancement of the pulmonary artery and its branches, there is no CT evidence for pulmonary embolism. There are no greater than 1 cm hilar or mediastinal lymph nodes. A pericardial effusion is seen, thickness of approximately 10 to 11 mm anteriorly. Left jugular daksha tral venous catheter is present coursing to the distal tip into the cavoatrial junction level. Promin ence of pulmonary artery could be indicative of pulmonary artery hypertension AORTA: No additional significant abnormality is seen. OTHER: Possible minimal ascites, an NG tube is in place the distal tip not included on exam, there a re anasarca changes. IMPRESSION: No evident pulmonary embolism. Correlate for congestive heart failure, volume overload, pulmonary tracy ous hypertension and interstitial edema. Suspect minimal ascites, bilateral pleural effusions right g reater than left. Indeterminate subcentimeter spiculated lung nodule. Correlate for pulmonary artery hypertension. There is a pericardial effusion.
[2021-06-11 17:36] LABS: Glucose,Whole Blood 121 mg/dL (75-99)
[2021-06-11 23:38] LABS: Glucose,Whole Blood 132 mg/dL (75-99)
[2021-06-12] MEDS ORDERED: CISATRACURIUM 2 MG/ML 5 ML VIAL IV ONE (03:48)
[2021-06-12 04:21] LABS: Anisocytosis Slight; Basophils % (A) 0 %; Eosinophils # (A) 0.2 k/uL (0-0.7); Eosinophils % (A) 1 %; HCT 39.7 % (34.0-46.0); HGB 12.4 gm/dL (11.4-16.0); Hypochromasia Slight; Lymphocytes # (A) 0.5 k/uL (1.0-4.8); Lymphocytes % (A) 4 %; MCH 29.3 pg (25.0-35.0); MCHC 31.3 g/dL (31.0-37.0); MCV 93.6 fL (80.0-100.0); Mean Platelet Volume 8.4; Monocytes # (A) 0.6 k/uL (0-1.0); Monocytes % (A) 5 %; Neutrophils # (A) 11.3 k/uL (1.3-7.7); Neutrophils % (A) 88 %; Platelet Count 205 k/uL (150-450); RBC 4.24 m/uL (3.80-5.40); RDW 16.1 % (11.5-15.5); WBC 12.8 k/uL (3.8-10.6)
[2021-06-12 04:38] LABS: ALT 25 U/L (4-34); AST 19 U/L (14-36); African American GFR (CKD) >90 (>60 ml/min/1.73 sqM); Alkaline Phosphatase 163 U/L (38-126); Anion Gap 2 mmol/L; Blood Urea Nitrogen 26 mg/dL (7-17); Calcium 8.8 mg/dL (8.4-10.2); Carbon Dioxide 32 mmol/L (22-30); Chloride 105 mmol/L (98-107); Glucose 152 mg/dL (74-99); Non-African American GFR(CKD) >90 (>60 ml/min/1.73 sqM); Potassium 4.2 mmol/L (3.5-5.1); Sodium 139 mmol/L (137-145); Total Bilirubin 0.6 mg/dL (0.2-1.3); Total Protein 6.2 g/dL (6.3-8.2)
[2021-06-12 06:10] LABS: Glucose,Whole Blood 121 mg/dL (75-99)
[2021-06-12 06:18] LABS: ABG Base Excess 6.2 mmol/L; ABG HCO3 31 mmol/L (21-25); ABG Oxygen Saturation 95.3 % (94-97); ABG PCO2 52 mmHg (35-45); ABG PH 7.39 (7.35-7.45); ABG PO2 82 mmHg (83-108); ABG TCO2 33 mmol/L (19-24); Allen Test Performed? Yes
[2021-06-12] MEDS: ASCORBIC ACID 500 MG TAB PO SCH (08:12)
[2021-06-12] MEDS: DEXAMETHASONE SOD PHOSPHATE 10 MG/ML 1 ML VIAL IVP SCH (08:12)
[2021-06-12] MEDS: ZINC SULFATE 220 MG CAP PO SCH (08:12)
[2021-06-12] MEDS: FUROSEMIDE 10 MG/ML 4 ML VIAL IV SCH ×2 (08:12→21:15)
[2021-06-12] MEDS: CHOLECALCIFEROL 125 MCG (5000 IU) TABLET PO SCH (08:12)
[2021-06-12] MEDS: CHLORHEXIDINE GLUCONATE 15 ML CUP MUCOUS MEM SCH ×2 (08:12→21:14)
[2021-06-12] MEDS: ENOXAPARIN 40 MG/0.4 ML SYRINGE SQ SCH (08:12)
[2021-06-12 11:25] LABS: Glucose,Whole Blood 115 mg/dL (75-99)
--- NOTE | 2021-06-12 13:17 | P.PN ---
Subjective Progress Note Date: 06/12/21 Principal diagnosis: Acute hypoxic respiratory failure secondary to COVID-19 pneumonia and underlying COPD. Pulmonary/critical care consult dated 06/08/2021. 60-year-old female, was brought in by EMS, with respiratory distress and respiratory failure. The patient arrived in the emergency department and was not moving any air. She was immediately intubated by the ER physician. The patient apparently complaining of difficulty breathing and shortness of breath. She apparently has never been at this hospital before. Not much information could be obtained. She had cyanosis, agonal respirations, and was obtunded. For that reason, she was intubated. 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 She apparently was receiving bag valve mask device in route. White count 12.4, hemoglobin 13.8, hematocrit 45, platelet count 236,000. PT 12.3 INR 1.2. Blood gases initially showed a pO2 of 125, pCO2 of 82, and pH is 7.2. Sodium 153, potassium 3.6, chlorides 100, CO2 23, anion gap 30, BUN 20, creatinine 0.88. Glucose 51 lactic acid 3.2 calcium 7.7 AST 56, and ALT 38. Troponin was 0.329. Coronavirus testing was positive. Chest x-ray showed bilateral right greater than left diffuse opacities, consistent with either interstitial edema, or interstitial pneumonia. Home medications included Macitentan, albuterol inhaler, vitamin D3, Spiriva, Symbicort, Coreg, potassium chloride, Lasix, iron, Lipitor, amlodipine. Based on these home medications, the patient appears to have COPD, hypertension, and hyperlipidemia. Progress note dated 06/09/2021. The patient was seen yesterday in consultation. She essentially came in with respiratory failure, was intubated in the emergency department, by the ER physician. The patient has severe oxygen-dependent COPD, and remains on the ventilator. She is seen today in room 261. She is currently on volume assist control, with a rate of 24, tidal volume 400, FiO2 70%, and PEEP of 10. Blood gases show pO2 of 99, pCO2 of 52, and a pH is 7.34. The patient's getting saline at 130 mL an hour, norepinephrine at 0.16 mcg/kg/m, and propofol at 40 mcg/kg/m. She was also started on tube feedings, with vital AF, at 10 mL an hour. Her goal rate has not yet been determined by dietary. White count 17.4, hemoglobin 12.9, hematocrit 40.5, platelet count 302,000. Sodium 136, potassium 3.7, chlorides 104, CO2 28, anion gap 4, BUN 27, creatinine 0.74. AST of 65. ALT is 45. Albumin is 3.1. Chest x-ray shows changes of COPD, and mild cardiomegaly, with some minimal interstitial changes. There is some patchy infi ltrates, right base greater than left. Reevaluated today on 06/10/2021, patient remains in the ICU, intubated, mechanically ventilated, sedated, but not paralyzed. Patient is on assist control rate of 24 tidal volume 400 FiO2 50% PEEP of 10. ABG showed a pO2 of 70 pCO2 45 pH of 7.42, hence no changes were made in the present ventilator settings. Patient is on propofol at 40 mcg/kg/m, not requiring any pressors at this point, norepinephrine has been discontinued apparently. She is on vital AF at goal. Her BNP level today is 8740 troponin is 0.578. Electrolytes are normal renal profile is normal chest x-ray continues to show by basilar infiltrates. And her echocardiogram showed severe pulmonary hypertension. D- dimer is pending. If elevated, may consider venous Doppler and CT angiogram of the chest. However if not elevated there is no reason to pursue this any further, we'll continue Lovenox as ordered. Chest x-ray continues to show by basilar infiltrates, and there is slight improvement in her pulmonary vasculature. Reevaluated today on 06/11/2021, patient remains in the ICU, she is intubated and mechanically ventilated. Patient is on assist control rate of 24 tidal volume 400 FiO2 was 75% and I cut it down to 60% and a increased the PEEP to 14. Patient desaturated last night, hence the nurses and respiratory therapists have been going up on her FiO2, today I decided to increase the PEEP and cut down FiO2 to 60%. ABG on 75% and PEEP of 10 and showed a pO2 of 72 pCO2 51 pH of 7.38. Chest x-ray does not show much of a change in her bilateral infiltrates, d-dimer seems to be a bit elevated, hence I went ahead and recommended CT angiogram of the chest. Patient remains on propofol at 40 she is off norepinephrine remains on vital HPI 50 mL per hour. WBC count today is 1.6 hemoglobin is 11.7. A left lens are normal renal profile is normal Reevaluated today on 06/12/2021, patient remains in the ICU, intubated and mechanically ventilated. Patient is on assist control mode of mechanical ventilation, rate of 26 tidal volume 380 FiO2 50%, and PEEP of 14 [address] angiogram yesterday showed no evidence of pulmonary embolism. However it showed bilateral infiltrates and bilateral pleural effusions consistent with some component of edema, and today I'm recommending diuretics in the form of Lasix 40 mg IV push twice a day. ABG today showed a pO2 of 82 pCO2 of 52 pH of 7.39, and this was on 60% FiO2, and I cut down the FiO2 to 50%. CBC is relatively unremarkable WBC count 12.8 hemoglobin is 12.4. Electrolytes are normal, renal profile is normal sputum cultures have been nondiagnostic. Last night the patient had an episode of increase in her peak airway pressures, responded well to sedation, and flow rates were changed, tidal volume what change. Today there is no evidence of elevated peak airway pressures. Chest x-ray showed no evidence of any signif icant change compared to her chest x-ray previously. Patient remains on the COVID-19 cocktail. Patient was not given any Remdesivir or Baricitinib, as she did not qualify for either one of them. Remains on Decadron 6 mg IV push daily, Lovenox at 40 mg subcu daily, and today I added Lasix 40 mg IV push twice a day. Patient remains on GI and DVT prophylaxis. Remains on vital HPI at 56 mL/h, and she is off norepinephrine. maintained on propofol at 40 mcg/kg/m Objective - Vital Signs Vital signs: Vital Signs Temp 98.7 F 06/12/21 12:00 Pulse 84 06/12/21 12:00 Resp 26 H 06/12/21 12:00 BP 127/74 06/11/21 04:00 Pulse Ox 95 06/12/21 12:00 Intake & Output 06/11/21 06/12/21 06/12/21 18:59 06:59 18:59 Intake Total 550.967 7962.671 605.692 Output Total 614 840 0959 Balance 445.775 735.671 -479.308 Weight 73.4 kg 75 kg Intake: IV 240 240 120 KVO 0.9 NS 240 240 120 Intake, IV Titration 200.775 178.671 89.692 Amount Norepinephrine 8 mg In 8.403 15.294 0.438 Sodium Chloride 0.9% 250 ml @ 0.05 MCG/KG/MIN 7. 101 mls/hr IV .Q24H [facility] Rx#:[id number] propofoL 1,000 mg In 192.372 163.377 89.254 Empty Bag 1 bag @ Titrate IV .Q0M [facility]FINO Rx#: [id number] Tube Feeding 460 672 336 Other 30 90 60 Output: Urine 701 408 1658 Other: Voiding Method Indwelling Catheter Indwelling Catheter Indwelling Catheter ABP, PAP, CO, CI - Last Documented Arterial Blood Pressure 145/66 - Exam Physical Exam revealed 60-year-old female intubated mechanically ventilated sedated, Head: Atraumatic, normocephalic. Endotracheal tube and orogastric tube are intact. HEENT:[Neck is supple.] [No neck masses.] [No thyromegaly.] [No JVD.] Chest: [Symmetrical chest expansion crackles at the bases no rhonchi and no wheezes.] Cardiac Exam: [Normal S1 and S2, no S3 gallop, no murmur.] Abdomen: [Soft, nontender, no megaly, no rebound, no guarding, normal bowel sounds.] Extremities: [No clubbing, no edema, no cyanosis.] Neurological Exam: [Cannot assess, patient is fully sedated. Psychiatric: Could not assess patient is fully sedated. Musculoskeletal, no deformities, normal muscle tone. Skin: No rashes. - Labs CBC & Chem 7: 06/12/21 04:10 06/12/21 04:10 Labs: Abnormal Lab Results - Last 24 Hours (Table) 06/11/21 06/11/21 06/12/21 Range/Units 17:34 23:36 04:10 WBC 12.8 H (3.8-10.6) k/uL RDW 16.1 H (11.5-15.5) % Neutrophils # 11.3 H (1.3-7.7) k/uL Lymphocytes # 0.5 L (1.0-4.8) k/uL ABG pCO2 (35-45) mmHg ABG pO2 (83-108) mmHg ABG HCO3 (21-25) mmol/L ABG Total CO2 (19-24) mmol/L Carbon Dioxide (22-30) mmol/L BUN (7-17) mg/dL Creatinine (0.52-1.04) mg/dL Glucose (74-99) mg/dL POC Glucose (mg/dL) 121 H 132 H (75-99) mg/dL Alkaline Phosphatase (38-126) U/L Total Protein (6.3-8.2) g/dL Albumin (3.5-5.0) g/dL 06/12/21 06/12/21 06/12/21 Range/Units 04:10 06:09 06:11 WBC (3.8-10.6) k/uL RDW (11.5-15.5) % Neutrophils # (1.3-7.7) k/uL Lymphocytes # (1.0-4.8) k/uL ABG pCO2 52 H (35-45) mmHg ABG pO2 82 L (83-108) mmHg ABG HCO3 31 H (21-25) mmol/L ABG Total CO2 33 H (19-24) mmol/L Carbon Dioxide 32 H (22-30) mmol/L BUN 26 H (7-17) mg/dL Creatinine 0.51 L (0.52-1.04) mg/dL Glucose 152 H (74-99) mg/dL POC Glucose (mg/dL) 121 H (75-99) mg/dL Alkaline Phosphatase 163 H (38-126) U/L Total Protein 6.2 L (6.3-8.2) g/dL Albumin 3.0 L (3.5-5.0) g/dL 06/12/21 Range/Units 11:24 WBC (3.8-10.6) k/uL RDW (11.5-15.5) % Neutrophils # (1.3-7.7) k/uL Lymphocytes # (1.0-4.8) k/uL ABG pCO2 (35-45) mmHg ABG pO2 (83-108) mmHg ABG HCO3 (21-25) mmol/L ABG Total CO2 (19-24) mmol/L Carbon Dioxide (22-30) mmol/L BUN (7-17) mg/dL Creatinine (0.52-1.04) mg/dL Glucose (74-99) mg/dL POC Glucose (mg/dL) 115 H (75-99) mg/dL Alkaline Phosphatase (38-126) U/L Total Protein (6.3-8.2) g/dL Albumin (3.5-5.0) g/dL Microbiology - Last 24 Hours (Table) 06/08/21 10:00 Blood Culture - Preliminary Blood No Growth after 96 hours 06/08/21 10:09 Blood Culture - Preliminary Blood No Growth after 96 hours Assessment and Plan Assessment: Impression: Acute on chronic hypoxic respiratory failure secondary to COVID-19 pneumonia and secondary to underlying COPD Chronic hypoxic respiratory failure secondary to COPD History of pulmonary hypertension, patient is on opsumit Benign essential hypertension. Dyslipidemia. Bilateral pleural effusions, suspect acute diastolic congestive heart failure. Recommendation: CT angiogram of the chest was reviewed. Continue to titrate oxygen accordingly Continue ventilatory support, increase PEEP to 14 cut down her FiO2 50% Continue GI and DVT prophylaxis. Continue COVID-19 cocktail. Continue sedation/propofol. Continue to monitor daily x-rays. Continue Decadron, continue Lovenox Patient is likely out of the window for Remdesivir. Patient was not a candidate for Baricitinib. Prognosis is guarded, we'll continue to follow. Critical care time is over 30 minutes Time with Patient: Greater than 30
--- NOTE | 2021-06-12 15:20 | XR ---
EXAMINATION TYPE: XR chest 1V portable DATE OF EXAM: 06/12/2021 COMPARISON: 06/11/2021 INDICATION: Tube placement TECHNIQUE: Single frontal view of the chest is obtained. FINDINGS: The heart size is upper limits of normal. The pulmonary vasculature is normal. Mild bibasilar infiltrates are present. Small pleural effusions may be present. Endotracheal tube tip is above the julee. Left central venous catheter tip is in the superior vena c jakob right atrial junction. Nasogastric tube transverses the thorax. IMPRESSION: 1. Mild bibasilar infiltrates with small pleural effusions, stable.
[2021-06-12 17:53] LABS: Glucose,Whole Blood 132 mg/dL (75-99)
--- NOTE | 2021-06-12 20:28 | P.PN ---
Progress Note - Text Progress Note Date: 06/12/21 Hospital course: 60-year-old female with past medical history of COPD on 3 L oxygen ad mitted to the hospital for increased shortness of breath for the last day or so the patient was found to be hypercapnic in the ER and in distress and was intubated patient is currently intubated and sedated Admitted with acute on chronic hypoxic respiratory failure secondary to COVID- 19, COPD,. CHF exacerbation. Bilateral pleural effusion. Patient did not qualify for Remdesivir or Baricitinib, as she did not qualify for the same. Patient on IV Decadron, IV Lasix. June 12: ICU. Intubated. FiO2 50% and a PEEP of 14. CT angiogram done yesterday negative for PE. This showed bilateral infiltrates and bilateral pleural effusion. [place] to be CHF. IV Lasix started. Active Medications Acetaminophen (Acetaminophen Tab 325 Mg Tab) 650 mg PO Q6HR PRN PRN Reason: Mild Pain or Fever > 100.5 Ascorbic Acid (Ascorbic Acid 500 Mg Tab) 1,000 mg PO DAILY [facility] Last Admin: 06/12/21 08:12 Dose: 1,000 mg Documented by: Chlorhexidine Gluconate (Chlorhexidine Gluconate 15 Ml Cup) 15 ml MUCOUS MEM BID [facility] Last Admin: 06/12/21 08:12 Dose: 15 ml Documented by: Cholecalciferol (Cholecalciferol 125 Mcg (5000 Iu) Tablet) 125 mcg PO DAILY [facility] Last Admin: 06/12/21 08:12 Dose: 125 mcg Documented by: Dexamethasone Sodium Phosphate (Dexamethasone Sod Phosphate 10 Mg/Ml 1 Ml Vial) 6 mg IVP DAILY [facility] Last Admin: 06/12/21 08:12 Dose: 6 mg Documented by: Enoxaparin Sodium (Enoxaparin 40 Mg/0.4 Ml Syringe) 40 mg SQ DAILY [facility] Last Admin: 06/12/21 08:12 Dose: 40 mg Documented by: Furosemide (Furosemide 10 Mg/Ml 4 Ml Vial) 40 mg IV Q12HR [facility] Last Admin: 06/12/21 08:12 Dose: 40 mg Documented by: Propofol 1,000 mg/ IV Solution 100 mls @ 0 mls/hr IV .Q0M [facility]; Protocol Last Admin: 06/12/21 18:44 Dose: 40 mcg/kg/min, 18 mls/hr Documented by: Norepinephrine Bitartrate 8 mg (/ Sodium Chloride) 258 mls @ 7.101 mls/hr IV .Q24H [facility]; Protocol Last Titration: 06/12/21 15:00 Dose: 0 mcg/kg/min, 0 mls/hr Documented by: Miscellaneous Information (Rx Info: Iv Contrast Was Given 1 Each Misc) 1 each MISCELLANE DAILY PRN PRN Reason: Per Protocol Stop: 06/13/21 11:01 Naloxone HCl (Naloxone 0.4 Mg/Ml 1 Ml Vial) 0.2 mg IV Q2M PRN PRN Reason: Opioid Reversal Ondansetron HCl (Ondansetron 4 Mg/2 Ml Vial) 4 mg IVP Q8HR PRN PRN Reason: Nausea And Vomiting Zinc Sulfate (Zinc Sulfate 220 Mg Cap) 220 mg PO DAILY [facility] Last Admin: 06/12/21 08:12 Dose: 220 mg Documented by: On examination: VITAL SIGNS: [98.7, 84, 26, 145/66, 95% on the ventilator] GENERAL APPEARANCE: Laying in bed, intubated RESPIRATORY: Respiratory effort increased Rest of the exam per pulmonary and nursing INVESTIGATIONS, reviewed in the clinical context: White count 12.8 hemoglobin 12.4 platelets 205. ABG: PH 7.3 pCO2 52 pO2 82 sodium 139 potassium 4.2 creatinine 0.51 albumin 3 Chest CTA: No PE. Interstitial edema. Bilateral pleural effusion. Some pericardial effusion. 2-D echocardiogram: EF 50-55%, right ventricle is severely enlarged. Moderate to severe tricuspid regurgitation. Severe pulmonary hypertension. Assessment and plan: -COVID-19 bilateral pneumonitis, severe: slow to respond IV dexamethasone. -Septic shock: Slow to respond IV levo fed -Acute on chronic hypoxic respiratory failure secondary to COVID-19 pneumonia and COPD: Slow to respond Ventilator -Chronic hypoxic respiratory failure secondary to COPD On home oxygen -Severe secondary pulmonary hypertension Outpatient opsumit -Essential hypertension Outpatient Coreg. Currently local pressure -Hyperlipidemia Lipitor 20 mg daily at bedtime -Acute diastolic congestive heart failure Lasix 40 mg IV every 12 -Hypoalbuminemia, acute phase reactant ICU. Intubated. IV levo fed-IV propofol. IV dexamethasone. Started on IV Lasix. Continue supportive care. 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 Prognosis guarded.
[2021-06-12] MEDS: ATORVASTATIN 20 MG TAB PO SCH (21:15)
[2021-06-13 00:26] LABS: Glucose,Whole Blood 119 mg/dL (75-99)
[2021-06-13 05:11] LABS: Anisocytosis Slight; Basophils % (A) 0 %; Eosinophils % (A) 0 %; HCT 37.9 % (34.0-46.0); HGB 12.2 gm/dL (11.4-16.0); Lymphocytes % (A) 8 %; MCH 29.7 pg (25.0-35.0); MCHC 32.3 g/dL (31.0-37.0); MCV 91.9 fL (80.0-100.0); Monocytes # (A) 0.9 k/uL (0-1.0); Monocytes % (A) 8 %; Neutrophils # (A) 9.3 k/uL (1.3-7.7); Neutrophils % (A) 82 %; Platelet Count 221 k/uL (150-450); RBC 4.12 m/uL (3.80-5.40); RDW 16.3 % (11.5-15.5); WBC 11.4 k/uL (3.8-10.6)
[2021-06-13 05:20] LABS: African American GFR (CKD) >90 (>60 ml/min/1.73 sqM); Anion Gap 5 mmol/L; Blood Urea Nitrogen 32 mg/dL (7-17); Calcium 8.7 mg/dL (8.4-10.2); Carbon Dioxide 33 mmol/L (22-30); Chloride 101 mmol/L (98-107); Glucose 118 mg/dL (74-99); Non-African American GFR(CKD) >90 (>60 ml/min/1.73 sqM); Potassium 3.8 mmol/L (3.5-5.1); Sodium 139 mmol/L (137-145)
[2021-06-13 05:57] LABS: Glucose,Whole Blood 113 mg/dL (75-99)
[2021-06-13 06:03] LABS: ABG Base Excess 12.1 mmol/L; ABG HCO3 37 mmol/L (21-25); ABG Oxygen Saturation 93.1 % (94-97); ABG PCO2 55 mmHg (35-45); ABG PH 7.43 (7.35-7.45); ABG PO2 70 mmHg (83-108); ABG TCO2 38 mmol/L (19-24); Allen Test Performed? Yes
--- NOTE | 2021-06-13 07:25 | XR ---
EXAMINATION TYPE: XR chest 1V portable DATE OF EXAM: 06/13/2021 Comparison: 06/12/2021 Clinical History: 60-year-old female Tube placement Findings: ET tube and NG tube satisfactory. Left CVC tip cavoatrial junction. Heart upper limits of normal in s ize. Mild hyperinflation. Small bilateral pleural effusions persist with patchy bibasilar opacities. Surgical clips at the lateral left breast. Impression: 1. Similar exam. Background COPD and suspected superimposed mild CHF with pulmonary vascular congesti on. 2. Ongoing small bilateral pleural effusions are prominent adjacent atelectasis and/or consolidation.
[2021-06-13] MEDS: CHOLECALCIFEROL 125 MCG (5000 IU) TABLET PO SCH (08:04)
[2021-06-13] MEDS: ZINC SULFATE 220 MG CAP PO SCH (08:04)
[2021-06-13] MEDS: CHLORHEXIDINE GLUCONATE 15 ML CUP MUCOUS MEM SCH ×2 (08:04→20:02)
[2021-06-13] MEDS: DEXAMETHASONE SOD PHOSPHATE 10 MG/ML 1 ML VIAL IVP SCH (08:04)
[2021-06-13] MEDS: ASCORBIC ACID 500 MG TAB PO SCH (08:04)
[2021-06-13] MEDS: FUROSEMIDE 10 MG/ML 4 ML VIAL IV SCH ×2 (08:05→20:02)
[2021-06-13] MEDS: ENOXAPARIN 40 MG/0.4 ML SYRINGE SQ SCH (08:05)
[2021-06-13] MEDS: NOREPINEPHRINE 8 MG in SODIUM CHLORIDE 0.9% 250 ML IV SCH ×2 (08:06→14:58)
--- NOTE | 2021-06-13 11:48 | P.PN ---
Subjective Progress Note Date: 06/13/21 Principal diagnosis: Acute hypoxic respiratory failure secondary to COVID-19 pneumonia and underlying COPD. Pulmonary/critical care consult dated 06/08/2021. 60-year-old female, was brought in by EMS, with respiratory distress and respiratory failure. The patient arrived in the emergency department and was not moving any air. She was immediately intubated by the ER physician. The patient apparently complaining of difficulty breathing and shortness of breath. She apparently has never been at this hospital before. Not much information could be obtained. She had cyanosis, agonal respirations, and was obtunded. For that reason, she was intubated. 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 She apparently was receiving bag valve mask device in route. White count 12.4, hemoglobin 13.8, hematocrit 45, platelet count 236,000. PT 12.3 INR 1.2. Blood gases initially showed a pO2 of 125, pCO2 of 82, and pH is 7.2. Sodium 153, potassium 3.6, chlorides 100, CO2 23, anion gap 30, BUN 20, creatinine 0.88. Glucose 51 lactic acid 3.2 calcium 7.7 AST 56, and ALT 38. Troponin was 0.329. Coronavirus testing was positive. Chest x-ray showed bilateral right greater than left diffuse opacities, consistent with either interstitial edema, or interstitial pneumonia. Home medications included Macitentan, albuterol inhaler, vitamin D3, Spiriva, Symbicort, Coreg, potassium chloride, Lasix, iron, Lipitor, amlodipine. Based on these home medications, the patient appears to have COPD, hypertension, and hyperlipidemia. Progress note dated 06/09/2021. The patient was seen yesterday in consultation. She essentially came in with respiratory failure, was intubated in the emergency department, by the ER physician. The patient has severe oxygen-dependent COPD, and remains on the ventilator. She is seen today in room 261. She is currently on volume assist control, with a rate of 24, tidal volume 400, FiO2 70%, and PEEP of 10. Blood gases show pO2 of 99, pCO2 of 52, and a pH is 7.34. The patient's getting saline at 130 mL an hour, norepinephrine at 0.16 mcg/kg/m, and propofol at 40 mcg/kg/m. She was also started on tube feedings, with vital AF, at 10 mL an hour. Her goal rate has not yet been determined by dietary. White count 17.4, hemoglobin 12.9, hematocrit 40.5, platelet count 302,000. Sodium 136, potassium 3.7, chlorides 104, CO2 28, anion gap 4, BUN 27, creatinine 0.74. AST of 65. ALT is 45. Albumin is 3.1. Chest x-ray shows changes of COPD, and mild cardiomegaly, with some minimal interstitial changes. There is some patchy infi ltrates, right base greater than left. Reevaluated today on 06/10/2021, patient remains in the ICU, intubated, mechanically ventilated, sedated, but not paralyzed. Patient is on assist control rate of 24 tidal volume 400 FiO2 50% PEEP of 10. ABG showed a pO2 of 70 pCO2 45 pH of 7.42, hence no changes were made in the present ventilator settings. Patient is on propofol at 40 mcg/kg/m, not requiring any pressors at this point, norepinephrine has been discontinued apparently. She is on vital AF at goal. Her BNP level today is 8740 troponin is 0.578. Electrolytes are normal renal profile is normal chest x-ray continues to show by basilar infiltrates. And her echocardiogram showed severe pulmonary hypertension. D- dimer is pending. If elevated, may consider venous Doppler and CT angiogram of the chest. However if not elevated there is no reason to pursue this any further, we'll continue Lovenox as ordered. Chest x-ray continues to show by basilar infiltrates, and there is slight improvement in her pulmonary vasculature. Reevaluated today on 06/11/2021, patient remains in the ICU, she is intubated and mechanically ventilated. Patient is on assist control rate of 24 tidal volume 400 FiO2 was 75% and I cut it down to 60% and a increased the PEEP to 14. Patient desaturated last night, hence the nurses and respiratory therapists have been going up on her FiO2, today I decided to increase the PEEP and cut down FiO2 to 60%. ABG on 75% and PEEP of 10 and showed a pO2 of 72 pCO2 51 pH of 7.38. Chest x-ray does not show much of a change in her bilateral infiltrates, d-dimer seems to be a bit elevated, hence I went ahead and recommended CT angiogram of the chest. Patient remains on propofol at 40 she is off norepinephrine remains on vital HPI 50 mL per hour. WBC count today is 1.6 hemoglobin is 11.7. A left lens are normal renal profile is normal Reevaluated today on 06/12/2021, patient remains in the ICU, intubated and mechanically ventilated. Patient is on assist control mode of mechanical ventilation, rate of 26 tidal volume 380 FiO2 50%, and PEEP of 14 [address] angiogram yesterday showed no evidence of pulmonary embolism. However it showed bilateral infiltrates and bilateral pleural effusions consistent with some component of edema, and today I'm recommending diuretics in the form of Lasix 40 mg IV push twice a day. ABG today showed a pO2 of 82 pCO2 of 52 pH of 7.39, and this was on 60% FiO2, and I cut down the FiO2 to 50%. CBC is relatively unremarkable WBC count 12.8 hemoglobin is 12.4. Electrolytes are normal, renal profile is normal sputum cultures have been nondiagnostic. Last night the patient had an episode of increase in her peak airway pressures, responded well to sedation, and flow rates were changed, tidal volume what change. Today there is no evidence of elevated peak airway pressures. Chest x-ray showed no evidence of any signif icant change compared to her chest x-ray previously. Patient remains on the COVID-19 cocktail. Patient was not given any Remdesivir or Baricitinib, as she did not qualify for either one of them. Remains on Decadron 6 mg IV push daily, Lovenox at 40 mg subcu daily, and today I added Lasix 40 mg IV push twice a day. Patient remains on GI and DVT prophylaxis. Remains on vital HPI at 56 mL/h, and she is off norepinephrine. maintained on propofol at 40 mcg/kg/m Reevaluated today on 06/09/2021, patient remains in the ICU, intubated and mechanically ventilated. She is on assist control rate of 26, tidal volume 380 FiO2 50% PEEP of 14. ABG showed a pO2 of 70 pCO2 55 pH of 7.43. WBC count is 11.4 hemoglobin is 12.2 electrolytes are normal, renal profile is normal. Chest x-ray is showing similar findings compared to the previous chest x-ray, there is suggestion of pulmonary vascular congestion, and bilateral pleural effusions, rather small. Patient received diuretics yesterday, remains on Lasix at 40 mg IV push twice a day. WBC count today is 11.4 hemoglobin is 12.2. Medications remain the same, patient is on COVID-19 cocktail, she is on propofol, she is off paralysis. And her dose of propofol today is 40 mcg/kg/m, patient is also on norepinephrine at 0.02. Echo grams per kilo per minute. Objective - Vital Signs Vital signs: Vital Signs Temp 98.7 F 06/13/21 08:00 Pulse 69 06/13/21 10:00 Resp 26 H 06/13/21 10:00 BP 127/74 06/11/21 04:00 Pulse Ox 89 L 06/13/21 10:00 Intake & Output 06/12/21 06/13/21 06/13/21 18:59 06:59 18:59 Intake Total 0866.761 2348.803 441.078 Output Total 1320 1405 875 Balance -38.658 -278.197 -433.922 Weight 74.4 kg Intake: IV 240 240 80 KVO 0.9 NS 240 240 80 Intake, IV Titration 279.342 210.803 7.078 Amount Norepinephrine 8 mg In 6.688 12.403 7.078 Sodium Chloride 0.9% 250 ml @ 0.05 MCG/KG/MIN 7. 101 mls/hr IV .Q24H [facility] Rx#:[id number] propofoL 1,000 mg In 272.654 198.4 Empty Bag 1 bag @ Titrate IV .Q0M [facility] Rx#: [id number] Tube Feeding 672 616 224 Other 90 60 130 Output: Urine 1320 1405 875 Other: Voiding Method Indwelling Catheter Indwelling Catheter Indwelling Catheter ABP, PAP, CO, CI - Last Documented Arterial Blood Pressure 108/51 - Exam Physical Exam revealed 60-year-old female intubated mechanically ventilated sedated, Head: Atraumatic, normocephalic. Endotracheal tube and orogastric tube are intact. HEENT:[Neck is supple.] [No neck masses.] [No thyromegaly.] [No JVD.] Chest: [Symmetrical chest expansion crackles at the bases no rhonchi and no wheezes.] Cardiac Exam: [Normal S1 and S2, no S3 gallop, no murmur.] Abdomen: [Soft, nontender, no megaly, no rebound, no guarding, normal bowel sounds.] Extremities: [No clubbing, no edema, no cyanosis.] Neurological Exam: [Cannot assess, patient is fully sedated. Psychiatric: Could not assess patient is fully sedated. Musculoskeletal, no deformities, normal muscle tone. Skin: No rashes. - Labs CBC & Chem 7: 06/13/21 04:00 06/13/21 04:00 Labs: Abnormal Lab Results - Last 24 Hours (Table) 06/12/21 06/13/21 06/13/21 Range/Units 17:40 00:24 04:00 WBC 11.4 H (3.8-10.6) k/uL RDW 16.3 H (11.5-15.5) % Neutrophils # 9.3 H (1.3-7.7) k/uL ABG pCO2 (35-45) mmHg ABG pO2 (83-108) mmHg ABG HCO3 (21-25) mmol/L ABG Total CO2 (19-24) mmol/L ABG O2 Saturation (94-97) % Carbon Dioxide (22-30) mmol/L BUN (7-17) mg/dL Creatinine (0.52-1.04) mg/dL Glucose (74-99) mg/dL POC Glucose (mg/dL) 132 H 119 H (75-99) mg/dL 06/13/21 06/13/21 06/13/21 Range/Units 04:00 05:56 06:00 WBC (3.8-10.6) k/uL RDW (11.5-15.5) % Neutrophils # (1.3-7.7) k/uL ABG pCO2 55 H (35-45) mmHg ABG pO2 70 L (83-108) mmHg ABG HCO3 37 H (21-25) mmol/L ABG Total CO2 38 H (19-24) mmol/L ABG O2 Saturation 93.1 L (94-97) % Carbon Dioxide 33 H (22-30) mmol/L BUN 32 H (7-17) mg/dL Creatinine 0.51 L (0.52-1.04) mg/dL Glucose 118 H (74-99) mg/dL POC Glucose (mg/dL) 113 H (75-99) mg/dL Microbiology - Last 24 Hours (Table) 06/08/21 10:00 Blood Culture - Preliminary Blood No Growth after 96 hours 06/08/21 10:09 Blood Culture - Preliminary Blood No Growth after 96 hours Assessment and Plan Assessment: Impression: Acute on chronic hypoxic respiratory failure secondary to COVID-19 pneumonia and secondary to underlying COPD Chronic hypoxic respiratory failure secondary to COPD History of pulmonary hypertension, patient is on opsumit Benign essential hypertension. Dyslipidemia. Bilateral pleural effusions, suspect acute diastolic congestive heart failure. Remains on diuretics. Recommendation: Continue ventilatory support Continue GI and DVT prophylaxis. Continue COVID-19 cocktail. Continue sedation/propofol. Continue to monitor daily x-rays. Continue Decadron, continue Lovenox Continue Lasix 40 mg IV push twice a day. Patient was out of the window for Remdesivir. Patient was not a candidate for Baricitinib. Prognosis is guarded, we'll continue to follow. Arrange for PICC line on this patient, And looks like we may be heading towards tracheostomy and PEG tube placement early next week. Critical care time is over 30 minutes Time with Patient: Greater than 30
[2021-06-13 12:00] LABS: Glucose,Whole Blood 149 mg/dL (75-99)
[2021-06-13] MEDS ORDERED: LIDOCAINE 1% INJ 10MG/ML (20 ML MDV) SQ ONE ×2 (13:52→14:01)
--- NOTE | 2021-06-13 14:32 | XR ---
EXAMINATION TYPE: XR chest 1V portable DATE OF EXAM: 06/13/2021, 2:08 PM Comparison: 06/13/2021, 5:20 AM Clinical History: 60-year-old female PICC LINE PLACEMENT Findings: Left CVC tip at the cavoatrial junction. Right PICC tip not clearly seen beyond the expected brachioc ephalic vein confluence. There is prominent leftward patient rotation. Heart size difficult to estima te. Continued diffuse interstitial changes along with small bilateral pleural effusions and bibasilar opacities. Surgical clips in the left breast. ET and NG tube satisfactory. Impression: 1. Right PICC tip estimated to be around the brachiocephalic vein confluence. 2. Otherwise stable exam with background COPD and diffuse interstitial changes along with small pleur al effusions with adjacent atelectasis and/or consolidation.
--- NOTE | 2021-06-13 15:25 | IR ---
EXAMINATION TYPE: IR cvc insert >=5 years DATE OF EXAM: 06/13/2021 COMPARISON: NONE HISTORY: Infection, needs long-term intravenous access for therapy, vasopressors FINDINGS: Maximal barrier technique was utilized. Hand hygiene obtained with soap and water and alco hol-based hand rub. The skin overlying the right brachial vein was localized with ultrasound and note d to be compressible and patent by ultrasound. An ultrasound image was obtained and submitted on pat yasmin's chart. Sterile technique utilized with the ultrasound machine. The skin overlying was prepped and draped and Lidocaine used for local anesthesia. A skin satish was made with a scalpel. Access was gained to the vein under direct ultrasound guidance with a 21-gauge needle and a 0.018 inch wire was advanced. Access site was dilated with a peel-away sheath and the catheter tailored to length. Cat heter advanced centrally and a post procedure chest x-ray verified placement with tip at the superior vena cava. Catheter was fixed to the skin and a sterile dressing placed. Hemostasis achieved and t he catheter was aspirated and flushed with sterile saline. The patient remained in stable condition. IMPRESSION: STATUS POST ULTRASOUND GUIDED PICC LINE PLACEMENT, READY FOR USE. THIS PROCEDURE WAS PER FORMED BY THE UNDERSIGNED.
--- NOTE | 2021-06-13 17:57 | P.PN ---
Progress Note - Text Progress Note Date: 06/13/21 Hospital course: 60-year-old female with past medical history of COPD on 3 L oxygen ad mitted to the hospital for increased shortness of breath for the last day or so the patient was found to be hypercapnic in the ER and in distress and was intubated patient is currently intubated and sedated Admitted with acute on chronic hypoxic respiratory failure secondary to COVID- 19, COPD,. CHF exacerbation. Bilateral pleural effusion. Patient did not qualify for Remdesivir or Baricitinib, as she did not qualify for the same. Patient on IV Decadron, IV Lasix. June 12: ICU. Intubated. FiO2 50% and a PEEP of 14. CT angiogram done yesterday negative for PE. This showed bilateral infiltrates and bilateral pleural effusion. [place] to be CHF. IV Lasix started. June 13: ICU. Intubated. Ventilator: FiO2 50 PEEP of 14. Telemetry sinus rhythm. Does open eyes. Drips include levo fed and propofol. IV Lasix Active Medications Acetaminophen (Acetaminophen Tab 325 Mg Tab) 650 mg PO Q6HR PRN PRN Reason: Mild Pain or Fever > 100.5 Ascorbic Acid (Ascorbic Acid 500 Mg Tab) 1,000 mg PO DAILY [facility] Last Admin: 06/13/21 08:04 Dose: 1,000 mg Documented by: Atorvastatin Calcium (Atorvastatin 20 Mg Tab) 20 mg PO HS [facility] Last Admin: 06/12/21 21:15 Dose: 20 mg Documented by: Chlorhexidine Gluconate (Chlorhexidine Gluconate 15 Ml Cup) 15 ml MUCOUS MEM BID [facility] Last Admin: 06/13/21 08:04 Dose: 15 ml Documented by: Cholecalciferol (Cholecalciferol 125 Mcg (5000 Iu) Tablet) 125 mcg PO DAILY [facility] Last Admin: 06/13/21 08:04 Dose: 125 mcg Documented by: Dexamethasone Sodium Phosphate (Dexamethasone Sod Phosphate 10 Mg/Ml 1 Ml Vial) 6 mg IVP DAILY [facility] Last Admin: 06/13/21 08:04 Dose: 6 mg Documented by: Enoxaparin Sodium (Enoxaparin 40 Mg/0.4 Ml Syringe) 40 mg SQ DAILY [facility] Last Admin: 06/13/21 08:05 Dose: 40 mg Documented by: Furosemide (Furosemide 10 Mg/Ml 4 Ml Vial) 40 mg IV Q12HR [facility] Last Admin: 06/13/21 08:05 Dose: 40 mg Documented by: Propofol 1,000 mg/ IV Solution 100 mls @ 0 mls/hr IV .Q0M [facility]; Protocol Last Admin: 06/13/21 15:19 Dose: 40 mcg/kg/min, 18 mls/hr Documented by: Norepinephrine Bitartrate 8 mg (/ Sodium Chloride) 258 mls @ 7.101 mls/hr IV .Q24H [facility]; Protocol Last Titration: 06/13/21 17:04 Dose: 0.01 mcg/kg/min, 1.42 mls/hr Documented by: Insulin Aspart (Insulin Aspart (Novolog) 100 Unit/Ml Vial) 0 unit SQ Q6HR [facility]; Protocol Naloxone HCl (Naloxone 0.4 Mg/Ml 1 Ml Vial) 0.2 mg IV Q2M PRN PRN Reason: Opioid Reversal Ondansetron HCl (Ondansetron 4 Mg/2 Ml Vial) 4 mg IVP Q8HR PRN PRN Reason: Nausea And Vomiting Zinc Sulfate (Zinc Sulfate 220 Mg Cap) 220 mg PO DAILY [facility] Last Admin: 06/13/21 08:04 Dose: 220 mg Documented by: On examination: VITAL SIGNS: 98.7, 67, 26, 108/51, 89% on the ventilator GENERAL APPEARANCE: Laying in bed, intubated , does open eyes RESPIRATORY: Respiratory effort increased Rest of the exam per pulmonary and nursing INVESTIGATIONS, reviewed in the clinical context: June 13: White count 9.4 hemoglobin 12.2 platelets 221 sodium 139 potassium 3.8 BUN 32 creatinine 0.51 White count 12.8 hemoglobin 12.4 platelets 205. ABG: PH 7.3 pCO2 52 pO2 82 sodium 139 potassium 4.2 creatinine 0.51 albumin 3 Chest CTA: No PE. Interstitial edema. Bilateral pleural effusion. Some pericardial effusion. 2-D echocardiogram: EF 50-55%, right ventricle is severely enlarged. Moderate to severe tricuspid regurgitation. Severe pulmonary hypertension. Assessment and plan: -COVID-19 bilateral pneumonitis, severe: slow to respond IV dexamethasone. -Septic shock: Slow to respond IV levo fed -Acute on chronic hypoxic respiratory failure secondary to COVID-19 pneumonia and COPD: Slow to respond Ventilator 50/14 -Chronic hypoxic respiratory failure secondary to COPD On home oxygen -Severe secondary pulmonary hypertension Outpatient opsumit -Essential hypertension Outpatient Coreg. Currently low BP -Hyperlipidemia Lipitor 20 mg daily at bedtime -Acute diastolic congestive heart failure: Slow to respond Lasix 40 mg IV every 12 -Hypoalbuminemia, acute phase reactant ICU. Intubated. IV levo fed-IV propofol. IV dexamethasone., IV Lasix. Continue supportive care. Prognosis guarded.
[2021-06-13 18:00] LABS: Glucose,Whole Blood 135 mg/dL (75-99)
[2021-06-13] MEDS: INSULIN ASPART (NovoLOG) 100 UNIT/ML VIAL SQ SCH (18:38)
[2021-06-13] MEDS: ATORVASTATIN 20 MG TAB PO SCH (20:02)
[2021-06-14 00:24] LABS: Glucose,Whole Blood 108 mg/dL (75-99)
[2021-06-14] MEDS: INSULIN ASPART (NovoLOG) 100 UNIT/ML VIAL SQ SCH ×4 (00:41→18:35)
[2021-06-14 04:53] LABS: Anisocytosis Slight; HCT 38.5 % (34.0-46.0); HGB 12.5 gm/dL (11.4-16.0); MCH 29.5 pg (25.0-35.0); MCHC 32.3 g/dL (31.0-37.0); MCV 91.3 fL (80.0-100.0); Mean Platelet Volume 8.2; Platelet Count 256 k/uL (150-450); RBC 4.22 m/uL (3.80-5.40); RDW 16.2 % (11.5-15.5)
[2021-06-14 05:15] LABS: African American GFR (CKD) >90 (>60 ml/min/1.73 sqM); Anion Gap 2 mmol/L; Blood Urea Nitrogen 36 mg/dL (7-17); Calcium 8.8 mg/dL (8.4-10.2); Carbon Dioxide 37 mmol/L (22-30); Chloride 100 mmol/L (98-107); Glucose 112 mg/dL (74-99); Non-African American GFR(CKD) >90 (>60 ml/min/1.73 sqM); Potassium 3.5 mmol/L (3.5-5.1); Sodium 139 mmol/L (137-145)
[2021-06-14] MEDS ORDERED: Potassium Replacement Protocol 1 EACH MISC MISCELLANE PRN (05:19)
[2021-06-14 06:03] LABS: ABG Base Excess 15.9 mmol/L; ABG HCO3 39 mmol/L (21-25); ABG Oxygen Saturation 92.4 % (94-97); ABG PCO2 48 mmHg (35-45); ABG PH 7.52 (7.35-7.45); ABG PO2 64 mmHg (83-108); ABG TCO2 40 mmol/L (19-24)
[2021-06-14 06:08] LABS: Allen Test Performed? No
[2021-06-14] MEDS: POTASSIUM BICARBONATE/CIT AC 20 MEQ TABLET.EFF NG-TUBE SCH ×2 (06:13→08:17)
--- NOTE | 2021-06-14 07:22 | XR ---
EXAMINATION TYPE: XR chest 1V portable DATE OF EXAM: 06/14/2021 COMPARISON: 06/13/2021 HISTORY: SOB, Follow Up FINDINGS: Indwelling tubes and catheters are unchanged. Improved infiltrates throughout both lung interiano. Some persistent small pleural effusions and basilar atelectasis. Stable appearance of the cardio-mediastinal structures at this time. Pleural effusion unchanged. IMPRESSION: 1. Improved infiltrates throughout both lung interiano. Clinical correlation and follow up until resolu tion is recommended.
[2021-06-14] MEDS: ZINC SULFATE 220 MG CAP PO SCH (08:17)
[2021-06-14] MEDS: ASCORBIC ACID 500 MG TAB PO SCH (08:17)
[2021-06-14] MEDS: DEXAMETHASONE SOD PHOSPHATE 10 MG/ML 1 ML VIAL IVP SCH (08:17)
[2021-06-14] MEDS: CHOLECALCIFEROL 125 MCG (5000 IU) TABLET PO SCH (08:17)
[2021-06-14] MEDS: CHLORHEXIDINE GLUCONATE 15 ML CUP MUCOUS MEM SCH ×2 (08:17→20:29)
[2021-06-14] MEDS: ENOXAPARIN 40 MG/0.4 ML SYRINGE SQ SCH (08:19)
[2021-06-14] MEDS: FUROSEMIDE 10 MG/ML 4 ML VIAL IV SCH ×2 (08:19→20:29)
[2021-06-14 10:51] LABS: ABG Oxygen Saturation 88.4 % (94-97); ABG PCO2 55 mmHg (35-45); ABG PH 7.47 (7.35-7.45); ABG TCO2 41 mmol/L (19-24)
[2021-06-14 10:54] LABS: ABG PO2 58 mmHg (83-108)
[2021-06-14 10:55] LABS: ABG HCO3 40 mmol/L (21-25); Allen Test Performed? no
[2021-06-14 11:50] LABS: Glucose,Whole Blood 128 mg/dL (75-99)
[2021-06-14 11:52] LABS: Glucose,Whole Blood 130 mg/dL (75-99)
--- NOTE | 2021-06-14 15:45 | P.PN ---
Subjective Progress Note Date: 06/14/21 60-year-old female, was brought in by EMS, with respiratory distress and respiratory failure. The patient arrived in the emergency department and was not moving any air. She was immediately intubated by the ER physician. The patient apparently complaining of difficulty breathing and shortness of breath. She apparently has never been at this hospital before. Not much information could be obtained. She had cyanosis, agonal respirations, and was obtunded. For that reason, she was intubated. 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 She apparently was receiving bag valve mask device in route. White count 12.4, hemoglobin 13.8, hematocrit 45, platelet count 236,000. PT 12.3 INR 1.2. Blood gases initially showed a pO2 of 125, pCO2 of 82, and pH is 7.2. Sodium 153, potassium 3.6, chlorides 100, CO2 23, anion gap 30, BUN 20, creatinine 0.88. Glucose 51 lactic acid 3.2 calcium 7.7 AST 56, and ALT 38. Troponin was 0.329. Coronavirus testing was positive. Chest x-ray showed bilateral right greater than left diffuse opacities, consistent with either interstitial edema, or interstitial pneumonia. Home medications included Macitentan, albuterol inhaler, vitamin D3, Spiriva, Symbicort, Coreg, potassium chloride, Lasix, iron, Lipitor, amlodipine. Based on these home medications, the patient appears to have COPD, hypertension, and hyperlipidemia. Progress note dated 06/09/2021. The patient was seen yesterday in consultation. She essentially came in with respiratory failure, was intubated in the emergency department, by the ER physician. The patient has severe oxygen-dependent COPD, and remains on the ventilator. She is seen today in room 261. She is currently on volume assist control, with a rate of 24, tidal volume 400, FiO2 70%, and PEEP of 10. Blood gases show pO2 of 99, pCO2 of 52, and a pH is 7.34. The patient's getting saline at 130 mL an hour, norepinephrine at 0.16 mcg/kg/m, and propofol at 40 mcg/kg/m. She was also started on tube feedings, with vital AF, at 10 mL an hour. Her goal rate has not yet been determined by dietary. White count 17.4, hemoglobin 12.9, hematocrit 40.5, platelet count 302,000. Sodium 136, potassium 3.7, chlorides 104, CO2 28, anion gap 4, BUN 27, creatinine 0.74. AST of 65. ALT is 45. Albumin is 3.1. Chest x-ray shows changes of COPD, and mild cardiomegaly, with some minimal interstitial changes. There is some patchy infiltrates, right base greater than left. Reevaluated today on 06/10/2021, patient remains in the ICU, intubated, mechanically ventilated, sedated, but not paralyzed. Patient is on assist control rate of 24 tidal volume 400 FiO2 50% PEEP of 10. ABG showed a pO2 of 70 pCO2 45 pH of 7.42, hence no changes were made in the present ventilator settings. Patient is on propofol at 40 mcg/kg/m, not requiring any pressors at this point, norepinephrine has been discontinued apparently. She is on vital AF at goal. Her BNP level today is 8740 troponin is 0.578. Electrolytes are normal renal profile is normal chest x-ray continues to show by basilar infiltrates. And her echocardiogram showed severe pulmonary hypertension. D- dimer is pending. If elevated, may consider venous Doppler and CT angiogram of the chest. However if not elevated there is no reason to pursue this any furt her, we'll continue Lovenox as ordered. Chest x-ray continues to show by basilar infiltrates, and there is slight improvement in her pulmonary vasculature. Reevaluated today on 06/11/2021, patient remains in the ICU, she is intubated and mechanically ventilated. Patient is on assist control rate of 24 tidal volume 400 FiO2 was 75% and I cut it down to 60% and a increased the PEEP to 14. Patient desaturated last night, hence the nurses and respiratory therapists have been going up on her FiO2, today I decided to increase the PEEP and cut down FiO2 to 60%. ABG on 75% and PEEP of 10 and showed a pO2 of 72 pCO2 51 pH of 7.38. Chest x-ray does not show much of a change in her bilateral infiltrates, d-dimer seems to be a bit elevated, hence I went ahead and recommended CT angiogram of the chest. Patient remains on propofol at 40 she is off norepinephrine remains on vital HPI 50 mL per hour. WBC count today is 1.6 hemoglobin is 11.7. A left lens are normal renal profile is normal Reevaluated today on 06/12/2021, patient remains in the ICU, intubated and mechanically ventilated. Patient is on assist control mode of mechanical ventilation, rate of 26 tidal volume 380 FiO2 50%, and PEEP of 14 CT angiogram yesterday showed no evidence of pulmonary embolism. However it showed bilateral infiltrates and bilateral pleural effusions consistent with some component of edema, and today I'm recommending diuretics in the form of Lasix 40 mg IV push twice a day. ABG today showed a pO2 of 82 pCO2 of 52 pH of 7.39, and this was on 60% FiO2, and I cut down the FiO2 to 50%. CBC is relatively unremarkable WBC count 12.8 hemoglobin is 12.4. Electrolytes are normal, renal profile is normal sputum cultures have been nondiagnostic. Last night the patient had an episode of increase in her peak airway pressures, responded well to sedation, and flow rates were changed, tidal volume what change. Today there is no evidence of elevated peak airway pressures. Chest x-ray showed no evidence of any significant change compared to her chest x-ray previously. Patient remains on the COVID-19 cocktail. Patient was not given any Remdesivir or Baricitinib, as she did not qualify for either one of them. Remains on Decadron 6 mg IV push daily, Lovenox at 40 mg subcu daily, and today I added Lasix 40 mg IV push twice a day. Patient remains on GI and DVT prophylaxis. Remains on vital HPI at 56 mL/h, and she is off norepinephrine. maintained on propofol at 40 mcg/kg/m Reevaluated today on 06/09/2021, patient remains in the ICU, intubated and mechanically ventilated. She is on assist control rate of 26, tidal volume 380 FiO2 50% PEEP of 14. ABG showed a pO2 of 70 pCO2 55 pH of 7.43. WBC count is 11.4 hemoglobin is 12.2 electrolytes are normal, renal profile is normal. Chest x-ray is showing similar findings compared to the previous chest x-ray, there is suggestion of pulmonary vascular congestion, and bilateral pleural effusions, rather small. Patient received diuretics yesterday, remains on Lasix at 40 mg IV push twice a day. WBC count today is 11.4 hemoglobin is 12.2. Medications remain the same, patient is on COVID-19 cocktail, she is on propofol, she is off paralysis. And her dose of propofol today is 40 mcg/kg/m, patient is also on norepinephrine at 0.02. Echo grams per kilo per minute. On 06/14/2021, the patient is being seen for a follow-up. The patient remains intubated on a mechanical ventilator. The patient is moaning is on propofol which is running at 40 Shan respiratory kilo gram per minute. The patient is quite such as a mechanical ventilator. The patient is an assist-control mode at the rate of 26, tidal volume of 380, FiO2 of 50% with a PEEP of 14. Peak airway pressures around 41. Note that the patient was intubated on 06/08/2021. The peak airway pressure is around 41. The setting of a pressures around 36. The blood gases from this morning showed a pH of 7.52 with a pCO2 of 48 and pO2 of 64. The chest x-ray from today shows adequate expansion of both lungs. There is improved infiltrates throughout both lung interiano bilaterally. There is small bilateral pleural effusion and bibasilar atelectasis is noted. I also reviewed the CAT scan of the chest. This was done on 06/11/2021 and showed bilateral pleural effusions and right more than left. There was also compressive atelectasis in the lung bases bilaterally. There was evidence of centrilobular emphysema and his urine was in a good location. The patient is known to have COPD the patient limited on oxygen at 3 L per minute nasal cannula. Hemodynamically, the patient is off levo fed since 6 this morning. The patient is Is receiving enteral feeding for nutritional support and the patient is receiving vital high protein at the rate of 50 mL an hour. The white cell count from today is at 14 with a hemoglobin of 12.5 and a platelet count of 256. Get is a 36 with a creatinine of 0.5 and sodium level is at 139. The patient remains on vitamin C, vitamin D and Decadron 6 mg IV every 24 hours for COVID 19 infection. At the same time, the patient is on Lovenox 40 mg subcu for DVT prophylaxis. No other significant events overnight. He was started on Lasix and the patient is still on diuresis with 40 mg of IV Lasix every 12 hours. The echo that was done at the time of admission showed an ejection fraction of 50- 55%. Nevertheless, the patient had severely enlarged RV, flattening of the right ventricular septal wall and systole and diastole consistent with right ventricular volume overload/pressure overload. The estimated pulmonary artery p ressure was around 91 mmHg and this is the right ventricular systolic pressure. Objective - Vital Signs Vital signs: Vital Signs Temp 99.7 F H 06/14/21 12:00 Pulse 89 06/14/21 14:00 Resp 26 H 06/14/21 14:00 BP 99/67 06/14/21 09:00 Pulse Ox 86 L 06/14/21 14:00 Intake & Output 06/13/21 06/14/21 06/14/21 18:59 06:59 18:59 Intake Total 6085.475 6796.030 737.101 Output Total 1420 1095 880 Balance -210.238 156.030 -142.899 Weight 74.4 kg Intake: IV 240 240 200 KVO 0.9 NS 240 240 200 Intake, IV Titration 107.762 279.030 99.101 Amount Norepinephrine 8 mg In 18.062 12.122 Sodium Chloride 0.9% 250 ml @ 0.05 MCG/KG/MIN 7. 101 mls/hr IV .Q24H [facility] Rx#:[id number] propofoL 1,000 mg In 89.7 266.908 99.101 Empty Bag 1 bag @ Titrate IV .Q0M [facility] Rx#: [id number] Tube Feeding 672 672 408 Other 190 60 30 Output: Urine 1420 1095 880 Other: Voiding Method Indwelling Catheter Indwelling Catheter Indwelling Catheter ABP, PAP, CO, CI - Last Documented Arterial Blood Pressure 105/52 - Exam Physical Exam revealed 60-year-old female intubated mechanically ventilated sed ated,orogastric and orotracheal tube are both in place. The patient is well sedated with propofol and the patient is calm and comfortable. Head: Atraumatic, normocephalic. Endotracheal tube and orogastric tube are intact. HEENT:[Neck is supple.] [No neck masses.] [No thyromegaly.] [No JVD.] Chest: [Symmetrical chest expansion crackles at the bases no rhonchi and no wheezes.] Cardiac Exam: [Normal S1 and S2, no S3 gallop, no murmur.] Abdomen: [Soft, nontender, no megaly, no rebound, no guarding, normal bowel sounds.] Examination of the extremities revealed easily palpable radial, femoral and pedal pulses. There was no cyanosis, clubbing or edema. Neurological Exam: [Cannot assess, patient is fully sedated. Psychiatric: Could not assess patient is fully sedated. Musculoskeletal, no deformities, normal muscle tone. Examination of the skin revealed no evidence of significant rashes, suspicious appearing nevi or other concerning lesions. - Labs CBC & Chem 7: 06/14/21 04:30 06/14/21 04:30 Labs: Abnormal Lab Results - Last 24 Hours (Table) 06/13/21 06/14/21 06/14/21 Range/Units 17:59 00:23 04:30 WBC 14.0 H (3.8-10.6) k/uL RDW 16.2 H (11.5-15.5) % ABG pH (7.35-7.45) ABG pCO2 (35-45) mmHg ABG pO2 (83-108) mmHg ABG HCO3 (21-25) mmol/L ABG Total CO2 (19-24) mmol/L ABG O2 Saturation (94-97) % Carbon Dioxide (22-30) mmol/L BUN (7-17) mg/dL Creatinine (0.52-1.04) mg/dL Glucose (74-99) mg/dL POC Glucose (mg/dL) 135 H 108 H (75-99) mg/dL 06/14/21 06/14/21 06/14/21 Range/Units 04:30 05:19 10:49 WBC (3.8-10.6) k/uL RDW (11.5-15.5) % ABG pH 7.52 H 7.47 H (7.35-7.45) ABG pCO2 48 H 55 H (35-45) mmHg ABG pO2 64 L 58 L* (83-108) mmHg ABG HCO3 39 H 40 H* (21-25) mmol/L ABG Total CO2 40 H 41 H (19-24) mmol/L ABG O2 Saturation 92.4 L 88.4 L (94-97) % Carbon Dioxide 37 H (22-30) mmol/L BUN 36 H (7-17) mg/dL Creatinine 0.51 L (0.52-1.04) mg/dL Glucose 112 H (74-99) mg/dL POC Glucose (mg/dL) (75-99) mg/dL 06/14/21 06/14/21 Range/Units 11:47 11:50 WBC (3.8-10.6) k/uL RDW (11.5-15.5) % ABG pH (7.35-7.45) ABG pCO2 (35-45) mmHg ABG pO2 (83-108) mmHg ABG HCO3 (21-25) mmol/L ABG Total CO2 (19-24) mmol/L ABG O2 Saturation (94-97) % Carbon Dioxide (22-30) mmol/L BUN (7-17) mg/dL Creatinine (0.52-1.04) mg/dL Glucose (74-99) mg/dL POC Glucose (mg/dL) 128 H 130 H (75-99) mg/dL Microbiology - Last 24 Hours (Table) 06/08/21 10:09 Blood Culture - Final Blood No Growth after 144 hours 06/08/21 10:00 Blood Culture - Final Blood No Growth after 144 hours Assessment and Plan Plan: 1 acute hypoxic respiratory failure secondary to COPD exacerbation and a component of pneumonia being either Covid 19 related versus bacterial 2 chronic hypoxic respiratory failure, maintained on oxygen at 3 L per minute nasal cannula 3 acute ventilator-dependent respiratory failure secondary to above, currently intubated on a mechanical ventilator. 4 severe pulmonary hypertension/right-sided volume overload with elevated pulmonary artery pressure, preserved LV function. 5 hypertension 6 hyperlipidemia 7 small bilateral pleural effusion right more than left 8 hypotension, likely septic in nature, currently off pressors Plan Continue ventilator support Drop the PEEP down to 12 and dropped his tidal volume down to 350 Monitor blood gases and a allow by mouth to above 55 Continue diuresis with Lasix 40 mg IV every 12 hours Patient is currently off pressors Continue Decadron Check pro calcitonin level and start the patient on broad-spectrum antibiotics if needed Echocardiogram was noted Keep the patient sedated propofol Continue enteral feeding for nutritional support Inflammatory markers regarding Covid 19 pneumonia are low We'll continue to follow. Critically care evaluation that was done and more than 30 minutes. Time with Patient: Greater than 30
--- NOTE | 2021-06-14 16:05 | P.PN ---
Progress Note - Text Progress Note Date: 06/14/21 Hospital course: 60-year-old female with past medical history of COPD on 3 L oxygen ad mitted to the hospital for increased shortness of breath for the last day or so the patient was found to be hypercapnic in the ER and in distress and was intubated patient is currently intubated and sedated Admitted with acute on chronic hypoxic respiratory failure secondary to COVID- 19, COPD,. CHF exacerbation. Bilateral pleural effusion. Patient did not qualify for Remdesivir or Baricitinib, as she did not qualify for the same. Patient on IV Decadron, IV Lasix. June 12: ICU. Intubated. FiO2 50% and a PEEP of 14. CT angiogram done yesterday negative for PE. This showed bilateral infiltrates and bilateral pleural effusion. Merrill to be CHF. IV Lasix started. June 13: ICU. Intubated. Ventilator: FiO2 50 PEEP of 14. Telemetry sinus rhythm. Does open eyes. Drips include levo fed and propofol. IV Lasix June 14: ICU. Intubated. Ventilator: FiO2 50% PEEP of 12. Levo fed was discontinued. Remains on propofol. 2 feeding. Telemetry: Sinus rhythm. Active Medications Acetaminophen (Acetaminophen Tab 325 Mg Tab) 650 mg PO Q6HR PRN PRN Reason: Mild Pain or Fever > 100.5 Ascorbic Acid (Ascorbic Acid 500 Mg Tab) 1,000 mg PO DAILY [facility] Last Admin: 06/14/21 08:17 Dose: 1,000 mg Documented by: Atorvastatin Calcium (Atorvastatin 20 Mg Tab) 20 mg PO HS [facility] Last Admin: 06/13/21 20:02 Dose: 20 mg Documented by: Chlorhexidine Gluconate (Chlorhexidine Gluconate 15 Ml Cup) 15 ml MUCOUS MEM BID [facility] Last Admin: 06/14/21 08:17 Dose: 15 ml Documented by: Cholecalciferol (Cholecalciferol 125 Mcg (5000 Iu) Tablet) 125 mcg PO DAILY [facility] Last Admin: 06/14/21 08:17 Dose: 125 mcg Documented by: Dexamethasone Sodium Phosphate (Dexamethasone Sod Phosphate 10 Mg/Ml 1 Ml Vial) 6 mg IVP DAILY [facility] Last Admin: 06/14/21 08:17 Dose: 6 mg Documented by: Enoxaparin Sodium (Enoxaparin 40 Mg/0.4 Ml Syringe) 40 mg SQ DAILY [facility] Last Admin: 06/14/21 08:19 Dose: 40 mg Documented by: Furosemide (Furosemide 10 Mg/Ml 4 Ml Vial) 40 mg IV Q12HR [facility] Last Admin: 06/14/21 08:19 Dose: 40 mg Documented by: Propofol 1,000 mg/ IV Solution 100 mls @ 0 mls/hr IV .Q0M [facility]; Protocol Last Titration: 06/14/21 12:15 Dose: 40 mcg/kg/min, 17.856 mls/hr Documented by: Norepinephrine Bitartrate 8 mg (/ Sodium Chloride) 258 mls @ 7.101 mls/hr IV .Q24H [facility]; Protocol Last Titration: 06/14/21 06:57 Dose: 0 mcg/kg/min, 0 mls/hr Documented by: Insulin Aspart (Insulin Aspart (Novolog) 100 Unit/Ml Vial) 0 unit SQ Q6HR [facility]; Protocol Last Admin: 06/14/21 11:59 Dose: Not Given Documented by: Miscellaneous Information (Potassium Replacement Protocol 1 Each Misc) 1 each MISCELLANE DAILY PRN; Protocol PRN Reason: Per Protocol Naloxone HCl (Naloxone 0.4 Mg/Ml 1 Ml Vial) 0.2 mg IV Q2M PRN PRN Reason: Opioid Reversal Ondansetron HCl (Ondansetron 4 Mg/2 Ml Vial) 4 mg IVP Q8HR PRN PRN Reason: Nausea And Vomiting Zinc Sulfate (Zinc Sulfate 220 Mg Cap) 220 mg PO DAILY [facility] Last Admin: 06/14/21 08:17 Dose: 220 mg Documented by: On examination: VITAL SIGNS: 99.7, 99, 27, 120/61, 93% on the ventilator GENERAL APPEARANCE: Laying in bed, intubated tube feeding RESPIRATORY: Respiratory effort increased Rest of the exam per pulmonary and nursing INVESTIGATIONS, reviewed in the clinical context: June 14: White count 14 hemoglobin 12.5 platelets 256 potassium 3.4 BUN 36 creatinine 0.51 June 13: White count 9.4 hemoglobin 12.2 platelets 221 sodium 139 potassium 3.8 BUN 32 creatinine 0.51 White count 12.8 hemoglobin 12.4 platelets 205. ABG: PH 7.3 pCO2 52 pO2 82 sodium 139 potassium 4.2 creatinine 0.51 albumin 3 Chest CTA: No PE. Interstitial edema. Bilateral pleural effusion. Some pericardial effusion. 2-D echocardiogram: EF 50-55%, right ventricle is severely enlarged. Moderate to severe tricuspid regurgitation. Severe pulmonary hypertension. Assessment and plan: -COVID-19 bilateral pneumonitis, severe: slow to respond IV dexamethasone. -Septic shock: Better IV levo fed: Discontinued -Acute on chronic hypoxic respiratory failure secondary to COVID-19 pneumonia and COPD: Slow to respond Ventilator 50/12 -Chronic hypoxic respiratory failure secondary to COPD On home oxygen -Severe secondary pulmonary hypertension Outpatient opsumit -Essential hypertension Outpatient Coreg. Currently low BP -Hyperlipidemia Lipitor 20 mg daily at bedtime -Acute diastolic congestive heart failure: Slow to respond Lasix 40 mg IV every 12 -Hypoalbuminemia, acute phase reactant ICU. Intubated. IV levo fed discontinued.-IV propofol. IV dexamethasone., IV Lasix. Continue supportive care. Prognosis guarded. Tube feeding at goal
[2021-06-14 16:49] LABS: C Reactive Protein 2.8 mg/dL (<1.0)
[2021-06-14 18:25] LABS: Glucose,Whole Blood 141 mg/dL (75-99)
[2021-06-14] MEDS: NOREPINEPHRINE 8 MG in SODIUM CHLORIDE 0.9% 250 ML IV SCH (18:27)
[2021-06-14] MEDS: ATORVASTATIN 20 MG TAB PO SCH (20:29)
[2021-06-15 00:07] LABS: Glucose,Whole Blood 126 mg/dL (75-99)
[2021-06-15] MEDS: INSULIN ASPART (NovoLOG) 100 UNIT/ML VIAL SQ SCH ×5 (00:10→23:35)
[2021-06-15 05:51] LABS: ABG Base Excess 17.2 mmol/L; ABG Oxygen Saturation 91.3 % (94-97); ABG PCO2 58 mmHg (35-45); ABG PH 7.46 (7.35-7.45); ABG PO2 64 mmHg (83-108); ABG TCO2 43 mmol/L (19-24); Allen Test Performed? Yes
[2021-06-15 05:53] LABS: ABG HCO3 41 mmol/L (21-25)
[2021-06-15 06:01] LABS: Glucose,Whole Blood 100 mg/dL (75-99)
[2021-06-15 06:29] LABS: African American GFR (CKD) >90 (>60 ml/min/1.73 sqM); Blood Urea Nitrogen 41 mg/dL (7-17); Calcium 8.8 mg/dL (8.4-10.2); Chloride 99 mmol/L (98-107); Glucose 120 mg/dL (74-99); Non-African American GFR(CKD) >90 (>60 ml/min/1.73 sqM); Potassium 3.6 mmol/L (3.5-5.1); Sodium 141 mmol/L (137-145)
[2021-06-15 06:35] LABS: Anion Gap 1 mmol/L
[2021-06-15 06:48] LABS: Carbon Dioxide 41 mmol/L (22-30)
--- NOTE | 2021-06-15 07:31 | XR ---
EXAMINATION TYPE: XR chest 1V portable DATE OF EXAM: 06/15/2021 COMPARISON: Chest x-ray 06/14/2021 HISTORY: Intubated TECHNIQUE: Single frontal view of the chest is obtained. FINDINGS: Endotracheal tube, NG tube, right-sided PICC line are overlying appropriate positions. No evident pneumothorax. Bibasilar increased attenuation is present. Interstitium is increased. Cardiac mediastinal silhouette is stable. There are overlying leads. IMPRESSION: Small effusions suspected with associated atelectasis versus edema, pneumonia not exclud ed. No significant interval change.
[2021-06-15] MEDS: FUROSEMIDE 10 MG/ML 4 ML VIAL IV SCH ×2 (08:00→20:22)
[2021-06-15] MEDS: ENOXAPARIN 40 MG/0.4 ML SYRINGE SQ SCH (08:00)
[2021-06-15] MEDS: DEXAMETHASONE SOD PHOSPHATE 10 MG/ML 1 ML VIAL IVP SCH (08:00)
[2021-06-15] MEDS ORDERED: POTASSIUM BICARBONATE/CIT AC 20 MEQ TABLET.EFF NG-TUBE SCH ×2 (08:00→14:00)
[2021-06-15] MEDS: CHLORHEXIDINE GLUCONATE 15 ML CUP MUCOUS MEM SCH ×2 (08:00→20:22)
[2021-06-15] MEDS: CHOLECALCIFEROL 125 MCG (5000 IU) TABLET PO SCH (08:01)
[2021-06-15] MEDS: ASCORBIC ACID 500 MG TAB PO SCH (08:01)
[2021-06-15] MEDS: ZINC SULFATE 220 MG CAP PO SCH (08:01)
[2021-06-15] MEDS: PANTOPRAZOLE 40 MG/10 ML VIAL IVP SCH (09:04)
[2021-06-15 11:37] LABS: Anisocytosis Slight; Basophils % (A) 0 %; Eosinophils # (A) 0.1 k/uL (0-0.7); Eosinophils % (A) 0 %; HCT 40.5 % (34.0-46.0); HGB 12.5 gm/dL (11.4-16.0); Hypochromasia Slight; Lymphocytes # (A) 1.1 k/uL (1.0-4.8); Lymphocytes % (A) 8 %; MCH 28.9 pg (25.0-35.0); MCHC 30.9 g/dL (31.0-37.0); MCV 93.7 fL (80.0-100.0); Mean Platelet Volume 9.2; Monocytes # (A) 1.1 k/uL (0-1.0); Monocytes % (A) 7 %; Neutrophils # (A) 11.7 k/uL (1.3-7.7); Neutrophils % (A) 83 %; Platelet Count 277 k/uL (150-450); RBC 4.32 m/uL (3.80-5.40); RDW 16.1 % (11.5-15.5); WBC 14.1 k/uL (3.8-10.6)
[2021-06-15 12:18] LABS: Glucose,Whole Blood 159 mg/dL (75-99)
--- NOTE | 2021-06-15 12:23 | P.PN ---
Subjective Progress Note Date: 06/15/21 60-year-old female, was brought in by EMS, with respiratory distress and respiratory failure. The patient arrived in the emergency department and was not moving any air. She was immediately intubated by the ER physician. The patient apparently complaining of difficulty breathing and shortness of breath. She apparently has never been at this hospital before. Not much information could be obtained. She had cyanosis, agonal respirations, and was obtunded. For that reason, she was intubated. 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 She apparently was receiving bag valve mask device in route. White count 12.4, hemoglobin 13.8, hematocrit 45, platelet count 236,000. PT 12.3 INR 1.2. Blood gases initially showed a pO2 of 125, pCO2 of 82, and pH is 7.2. Sodium 153, potassium 3.6, chlorides 100, CO2 23, anion gap 30, BUN 20, creatinine 0.88. Glucose 51 lactic acid 3.2 calcium 7.7 AST 56, and ALT 38. Troponin was 0.329. Coronavirus testing was positive. Chest x-ray showed bilateral right greater than left diffuse opacities, consistent with either interstitial edema, or interstitial pneumonia. Home medications included Macitentan, albuterol inhaler, vitamin D3, Spiriva, Symbicort, Coreg, potassium chloride, Lasix, iron, Lipitor, amlodipine. Based on these home medications, the patient appears to have COPD, hypertension, and hyperlipidemia. Progress note dated 06/09/2021. The patient was seen yesterday in consultation. She essentially came in with respiratory failure, was intubated in the emergency department, by the ER physician. The patient has severe oxygen-dependent COPD, and remains on the ventilator. She is seen today in room 261. She is currently on volume assist control, with a rate of 24, tidal volume 400, FiO2 70%, and PEEP of 10. Blood gases show pO2 of 99, pCO2 of 52, and a pH is 7.34. The patient's getting saline at 130 mL an hour, norepinephrine at 0.16 mcg/kg/m, and propofol at 40 mcg/kg/m. She was also started on tube feedings, with vital AF, at 10 mL an hour. Her goal rate has not yet been determined by dietary. White count 17.4, hemoglobin 12.9, hematocrit 40.5, platelet count 302,000. Sodium 136, potassium 3.7, chlorides 104, CO2 28, anion gap 4, BUN 27, creatinine 0.74. AST of 65. ALT is 45. Albumin is 3.1. Chest x-ray shows changes of COPD, and mild cardiomegaly, with some minimal interstitial changes. There is some patchy infiltrates, right base greater than left. Reevaluated today on 06/10/2021, patient remains in the ICU, intubated, mechanically ventilated, sedated, but not paralyzed. Patient is on assist control rate of 24 tidal volume 400 FiO2 50% PEEP of 10. ABG showed a pO2 of 70 pCO2 45 pH of 7.42, hence no changes were made in the present ventilator settings. Patient is on propofol at 40 mcg/kg/m, not requiring any pressors at this point, norepinephrine has been discontinued apparently. She is on vital AF at goal. Her BNP level today is 8740 troponin is 0.578. Electrolytes are normal renal profile is normal chest x-ray continues to show by basilar infiltrates. And her echocardiogram showed severe pulmonary hypertension. D- dimer is pending. If elevated, may consider venous Doppler and CT angiogram of the chest. However if not elevated there is no reason to pursue this any furt her, we'll continue Lovenox as ordered. Chest x-ray continues to show by basilar infiltrates, and there is slight improvement in her pulmonary vasculature. Reevaluated today on 06/11/2021, patient remains in the ICU, she is intubated and mechanically ventilated. Patient is on assist control rate of 24 tidal volume 400 FiO2 was 75% and I cut it down to 60% and a increased the PEEP to 14. Patient desaturated last night, hence the nurses and respiratory therapists have been going up on her FiO2, today I decided to increase the PEEP and cut down FiO2 to 60%. ABG on 75% and PEEP of 10 and showed a pO2 of 72 pCO2 51 pH of 7.38. Chest x-ray does not show much of a change in her bilateral infiltrates, d-dimer seems to be a bit elevated, hence I went ahead and recommended CT angiogram of the chest. Patient remains on propofol at 40 she is off norepinephrine remains on vital HPI 50 mL per hour. WBC count today is 1.6 hemoglobin is 11.7. A left lens are normal renal profile is normal Reevaluated today on 06/12/2021, patient remains in the ICU, intubated and mechanically ventilated. Patient is on assist control mode of mechanical ventilation, rate of 26 tidal volume 380 FiO2 50%, and PEEP of 14 [address] angiogram yesterday showed no evidence of pulmonary embolism. However it showed bilateral infiltrates and bilateral pleural effusions consistent with some component of edema, and today I'm recommending diuretics in the form of Lasix 40 mg IV push twice a day. ABG today showed a pO2 of 82 pCO2 of 52 pH of 7.39, and this was on 60% FiO2, and I cut down the FiO2 to 50%. CBC is relatively unremarkable WBC count 12.8 hemoglobin is 12.4. Electrolytes are normal, renal profile is normal sputum cultures have been nondiagnostic. Last night the patient had an episode of increase in her peak airway pressures, responded well to sedation, and flow rates were changed, tidal volume what change. Today there is no evidence of elevated peak airway pressures. Chest x-ray showed no evidence of any significant change compared to her chest x-ray previously. Patient remains on the COVID-19 cocktail. Patient was not given any Remdesivir or Baricitinib, as she did not qualify for either one of them. Remains on Decadron 6 mg IV push daily, Lovenox at 40 mg subcu daily, and today I added Lasix 40 mg IV push twice a day. Patient remains on GI and DVT prophylaxis. Remains on vital HPI at 56 mL/h, and she is off norepinephrine. maintained on propofol at 40 mcg/kg/m Reevaluated today on 06/09/2021, patient remains in the ICU, intubated and mechanically ventilated. She is on assist control rate of 26, tidal volume 380 FiO2 50% PEEP of 14. ABG showed a pO2 of 70 pCO2 55 pH of 7.43. WBC count is 11.4 hemoglobin is 12.2 electrolytes are normal, renal profile is normal. Chest x-ray is showing similar findings compared to the previous chest x-ray, there is suggestion of pulmonary vascular congestion, and bilateral pleural effusions, rather small. Patient received diuretics yesterday, remains on Lasix at 40 mg IV push twice a day. WBC count today is 11.4 hemoglobin is 12.2. Medications remain the same, patient is on COVID-19 cocktail, she is on propofol, she is off paralysis. And her dose of propofol today is 40 mcg/kg/m, patient is also on norepinephrine at 0.02. Echo grams per kilo per minute. On 06/14/2021, the patient is being seen for a follow-up. The patient remains intubated on a mechanical ventilator. The patient is moaning is on propofol which is running at 40 Shan respiratory kilo gram per minute. The patient is quite such as a mechanical ventilator. The patient is an assist-control mode at the rate of 26, tidal volume of 380, FiO2 of 50% with a PEEP of 14. Peak airway pressures around 41. Note that the patient was intubated on 06/08/2021. The peak airway pressure is around 41. The setting of a pressures around 36. The blood gases from this morning showed a pH of 7.52 with a pCO2 of 48 and pO2 of 64. The chest x-ray from today shows adequate expansion of both lungs. There is improved infiltrates throughout both lung interiano bilaterally. There is small bilateral pleural effusion and bibasilar atelectasis is noted. I also reviewed the CAT scan of the chest. This was done on 06/11/2021 and showed bilateral pleural effusions and right more than left. There was also compressive atelectasis in the lung bases bilaterally. There was evidence of centrilobular emphysema and his urine was in a good location. The patient is known to have COPD the patient limited on oxygen at 3 L per minute nasal cannula. Hemodynamically, the patient is off levo fed since 6 this morning. The patient is Is receiving enteral feeding for nutritional support and the patient is receiving vital high protein at the rate of 50 mL an hour. The white cell count from today is at 14 with a hemoglobin of 12.5 and a platelet count of 256. Get is a 36 with a creatinine of 0.5 and sodium level is at 139. The patient remains on vitamin C, vitamin D and Decadron 6 mg IV every 24 hours for COVID 19 infection. At the same time, the patient is on Lovenox 40 mg subcu for DVT prophylaxis. No other significant events overnight. He was started on Lasix and the patient is still on diuresis with 40 mg of IV Lasix every 12 hours. The echo that was done at the time of admission showed an ejection fraction of 50- 55%. Nevertheless, the patient had severely enlarged RV, flattening of the right ventricular septal wall and systole and diastole consistent with right ventricular volume overload/pressure overload. The estimated pulmonary artery p ressure was around 91 mmHg and this is the right ventricular systolic pressure. 06/15/2021, the patient remains intubated on a mechanical ventilator. The patient is sedated with propofol and the patient is currently on Provera running at 40 Shan respiratory kilo gram per minute. This morning, she is quite such as a mechanical ventilator. She does control mode at the rate of 26, tidal volume of 350 with an FiO2 of 50% and a PEEP of 12. Peak airway pressures down to 32 and the static pressure is down to 27 compared to yesterday. The blood gases from today shows a pH of 7.46 with a pCO2 of 58 and pO2 of 64 on the above-mentioned ventilator setting. The patient remains on IV Lasix and the patient is also on Decadron 6 mg an push every 24 hours. The patient is receiving Lasix 40 mg every every 12 hours. The patient is a positive fluid balance of 222 mL over the past 24 hours. The patient is also on a low-dose norepinephrine infusion at 0.03 mcg/kg per minute for hemodynamic support. Urine output is adequate for now. Patient is receiving enteral feeding for nutritional support and the patient is on vital high protein. The patient is afebrile. The patient is arousable while being given a sedation holiday. Blood work from today shows a white cell count of 14.1 with a hemoglobin of 12.5 and a platelet count of 277. The serum bicarbs up to 41 with a sodium level of 141. The BUN 41 with a creatinine of 0.4. Glucose is 159. Inflammatory markers regarding Cogentin infection showed a LDH level of 641 with a CRP level of 2.1. D-dimer is at 1.29. On a separate note, the patient's echo showed a preserved LV function with an ejection fraction of 50-55%. The patient had severe pulmonary hypertension with a pulmonary artery pressure of 91 and significant enlargement of the right ventricular size consistent with volume/pressure overload. Objective - Vital Signs Vital signs: Vital Signs Temp 99.3 F 06/15/21 12:00 Pulse 75 06/15/21 12:00 Resp 26 H 06/15/21 12:00 BP 99/67 06/14/21 09:00 Pulse Ox 87 L 02/26/22 12:00 Intake & Output 06/14/21 06/15/21 06/15/21 18:59 06:59 18:59 Intake Total 1190.506 938.770 551.513 Output Total 0414 822 3441 Balance 165.506 113.770 -513.487 Weight 74.4 kg 75.3 kg Intake: IV 360 220 120 Normal Saline 0.9 @ 20 mL 360 220 120 /hr Intake, IV Titration 198.506 177.770 125.513 Amount Norepinephrine 8 mg In 14.084 15.103 Sodium Chloride 0.9% 250 ml @ 0.05 MCG/KG/MIN 7. 101 mls/hr IV .Q24H [facility] Rx#:[id number] propofoL 1,000 mg In 198.506 163.686 110.410 Empty Bag 1 bag @ Titrate IV .Q0M RUFINO Rx#: [id number] Tube Feeding 572 451 246 Other 60 90 60 Output: Urine 2489 429 1706 Other: Voiding Method Indwelling Catheter Indwelling Catheter ABP, PAP, CO, CI - Last Documented Arterial Blood Pressure 108/47 - Exam Physical Exam revealed 60-year-old female intubated mechanically ventilated sedated,orogastric and orotracheal tube are both in place. The patient is well sedated with propofol and the patient is calm and comfortable. Head: Atraumatic, normocephalic. Endotracheal tube and orogastric tube are intact. HEENT:[Neck is supple.] [No neck masses.] [No thyromegaly.] [No JVD.] Chest: [Symmetrical chest expansion crackles at the bases no rhonchi and no wheezes.] Cardiac Exam: [Normal S1 and S2, no S3 gallop, no murmur.] Abdomen: [Soft, nontender, no megaly, no rebound, no guarding, normal bowel sounds.] Examination of the extremities revealed easily palpable radial, femoral and pedal pulses. There was no cyanosis, clubbing or edema. Neurological Exam: [Cannot assess, patient is fully sedated. Psychiatric: Could not assess patient is fully sedated. Musculoskeletal, no deformities, normal muscle tone. Examination of the skin revealed no evidence of significant rashes, suspicious appearing nevi or other concerning lesions. - Labs CBC & Chem 7: 06/15/21 05:50 06/15/21 05:50 Labs: Abnormal Lab Results - Last 24 Hours (Table) 06/14/21 06/14/21 06/14/21 Range/Units 04:30 16:35 16:35 WBC (3.8-10.6) k/uL MCHC (31.0-37.0) g/dL RDW (11.5-15.5) % Neutrophils # (1.3-7.7) k/uL Monocytes # (0-1.0) k/uL D-Dimer 1.29 H (<0.60) mg/L FEU ABG pH (7.35-7.45) ABG pCO2 (35-45) mmHg ABG pO2 (83-108) mmHg ABG HCO3 (21-25) mmol/L ABG Total CO2 (19-24) mmol/L ABG O2 Saturation (94-97) % Carbon Dioxide (22-30) mmol/L BUN (7-17) mg/dL Creatinine (0.52-1.04) mg/dL Glucose (74-99) mg/dL POC Glucose (mg/dL) (75-99) mg/dL Lactate Dehydrogenase 641 H (313-618) U/L C-Reactive Protein 2.8 H (<1.0) mg/dL Procalcitonin 0.32 H (0.02-0.09) ng/mL 06/14/21 06/15/21 06/15/21 Range/Units 18:24 00:05 05:46 WBC (3.8-10.6) k/uL MCHC (31.0-37.0) g/dL RDW (11.5-15.5) % Neutrophils # (1.3-7.7) k/uL Monocytes # (0-1.0) k/uL D-Dimer (<0.60) mg/L FEU ABG pH 7.46 H (7.35-7.45) ABG pCO2 58 H (35-45) mmHg ABG pO2 64 L (83-108) mmHg ABG HCO3 41 H* (21-25) mmol/L ABG Total CO2 43 H (19-24) mmol/L ABG O2 Saturation 91.3 L (94-97) % Carbon Dioxide (22-30) mmol/L BUN (7-17) mg/dL Creatinine (0.52-1.04) mg/dL Glucose (74-99) mg/dL POC Glucose (mg/dL) 141 H 126 H (75-99) mg/dL Lactate Dehydrogenase (313-618) U/L C-Reactive Protein (<1.0) mg/dL Procalcitonin (0.02-0.09) ng/mL 06/15/21 06/15/21 06/15/21 Range/Units 05:50 05:50 05:59 WBC 14.1 H (3.8-10.6) k/uL MCHC 30.9 L (31.0-37.0) g/dL RDW 16.1 H (11.5-15.5) % Neutrophils # 11.7 H (1.3-7.7) k/uL Monocytes # 1.1 H (0-1.0) k/uL D-Dimer (<0.60) mg/L FEU ABG pH (7.35-7.45) ABG pCO2 (35-45) mmHg ABG pO2 (83-108) mmHg ABG HCO3 (21-25) mmol/L ABG Total CO2 (19-24) mmol/L ABG O2 Saturation (94-97) % Carbon Dioxide 41 H* (22-30) mmol/L BUN 41 H (7-17) mg/dL Creatinine 0.49 L (0.52-1.04) mg/dL Glucose 120 H (74-99) mg/dL POC Glucose (mg/dL) 100 H (75-99) mg/dL Lactate Dehydrogenase (313-618) U/L C-Reactive Protein (<1.0) mg/dL Procalcitonin (0.02-0.09) ng/mL Microbiology - Last 24 Hours (Table) 06/08/21 10:09 Blood Culture - Final Blood No Growth after 144 hours 06/08/21 10:00 Blood Culture - Final Blood No Growth after 144 hours Assessment and Plan Plan: 1 acute hypoxic respiratory failure secondary to COPD exacerbation and a component of pneumonia being either Covid 19 related versus bacterial. The patient remains intubated on a mechanical ventilator. There is some limited improvement in her oxidation since yesterday. The patient's oxidation is still borderline on a PEEP of 12 with an FiO2 of 50%. Chest x-ray findings and essentially stable without any significant interval change. Inflammatory markers are local regarding Covid 19 infection. Patient remains on Decadron. The patient remains on anticoagulation. The patient remains on diuretics and IV Lasix. 2 chronic hypoxic respiratory failure, maintained on oxygen at 3 L per minute nasal cannula 3 acute ventilator-dependent respiratory failure secondary to above, currently intubated on a mechanical ventilator. 4 severe pulmonary hypertension/right-sided volume overload with elevated pulmonary artery pressure, preserved LV function. 5 hypertension 6 hyperlipidemia 7 small bilateral pleural effusion right more than left 8 hypotension, likely septic in nature, currently off pressors, still on low- dose pressors for hemodynamic support. Plan Continue ventilator support Drop the PEEP down to 10 and dropped his tidal volume down to 350 Monitor blood gases and a allow by mouth to above 55 Continue diuresis with Lasix 40 mg IV every 12 hours Patient is currently on pressors and this can be easily weaned off over the next few hours and the patient is on low dose of norepinephrine infusion for now. Continue Decadron Pro calcitonin level was low at 0.32 Rest of the inflammatory markers regarding Covid 19 infection were also low Echocardiogram was noted Keep the patient sedated propofol Continue enteral feeding for nutritional support we'll continue to follow Critically care evaluation that was done and more than 30 minutes. Time with Patient: Greater than 30
[2021-06-15] MEDS: NOREPINEPHRINE 8 MG in SODIUM CHLORIDE 0.9% 250 ML IV SCH (16:24)
--- NOTE | 2021-06-15 17:27 | P.PN ---
Progress Note - Text Progress Note Date: 06/15/21 Hospital course: 60-year-old female with past medical history of COPD on 3 L oxygen ad mitted to the hospital for increased shortness of breath for the last day or so the patient was found to be hypercapnic in the ER and in distress and was intubated patient is currently intubated and sedated Admitted with acute on chronic hypoxic respiratory failure secondary to COVID- 19, COPD,. CHF exacerbation. Bilateral pleural effusion. Patient did not qualify for Remdesivir or Baricitinib, as she did not qualify for the same. Patient on IV Decadron, IV Lasix. June 12: ICU. Intubated. FiO2 50% and a PEEP of 14. CT angiogram done yesterday negative for PE. This showed bilateral infiltrates and bilateral pleural effusion. [place] to be CHF. IV Lasix started. June 13: ICU. Intubated. Ventilator: FiO2 50 PEEP of 14. Telemetry sinus rhythm. Does open eyes. Drips include levo fed and propofol. IV Lasix June 14: ICU. Intubated. Ventilator: FiO2 50% PEEP of 12. Levo fed was discontinued. Remains on propofol. 2 feeding. Telemetry: Sinus rhythm. June 15: ICU. Intubated. Ventilator: FiO2 70 PEEP of 10. Telemetry: Sinus rhythm.. Had a lot of secretions removed through his endotracheal tube. [email or web address] Thick colored. Started on IV cefepime. Active Medications Acetaminophen (Acetaminophen Tab 325 Mg Tab) 650 mg PO Q6HR PRN PRN Reason: Mild Pain or Fever > 100.5 Ascorbic Acid (Ascorbic Acid 500 Mg Tab) 1,000 mg PO DAILY [facility] Last Admin: 06/15/21 08:01 Dose: 1,000 mg Documented by: Atorvastatin Calcium (Atorvastatin 20 Mg Tab) 20 mg PO HS [facility] Last Admin: 06/14/21 20:29 Dose: 20 mg Documented by: Chlorhexidine Gluconate (Chlorhexidine Gluconate 15 Ml Cup) 15 ml MUCOUS MEM BID [facility] Last Admin: 06/15/21 08:00 Dose: 15 ml Documented by: Cholecalciferol (Cholecalciferol 125 Mcg (5000 Iu) Tablet) 125 mcg PO DAILY [facility] Last Admin: 06/15/21 08:01 Dose: 125 mcg Documented by: Dexamethasone Sodium Phosphate (Dexamethasone Sod Phosphate 10 Mg/Ml 1 Ml Vial) 6 mg IVP DAILY [facility] Last Admin: 06/15/21 08:00 Dose: 6 mg Documented by: Enoxaparin Sodium (Enoxaparin 40 Mg/0.4 Ml Syringe) 40 mg SQ DAILY [facility] Last Admin: 06/15/21 08:00 Dose: 40 mg Documented by: Furosemide (Furosemide 10 Mg/Ml 4 Ml Vial) 40 mg IV Q12HR [facility] Last Admin: 06/15/21 08:00 Dose: 40 mg Documented by: Propofol 1,000 mg/ IV Solution 100 mls @ 0 mls/hr IV .Q0M [facility]; Protocol Last Admin: 06/15/21 17:07 Dose: 50 mcg/kg/min, 22.59 mls/hr Documented by: Norepinephrine Bitartrate 8 mg (/ Sodium Chloride) 258 mls @ 7.101 mls/hr IV .Q24H [facility]; Protocol Last Titration: 06/15/21 17:06 Dose: 0 mcg/kg/min, 0 mls/hr Documented by: Cefepime HCl 2 gm/ Sodium (Chloride) 100 mls @ 25 mls/hr IVPB Q12HR [facility]; Protocol Insulin Aspart (Insulin Aspart (Novolog) 100 Unit/Ml Vial) 0 unit SQ Q6HR [facility]; Protocol Last Admin: 06/15/21 12:20 Dose: 3 unit Documented by: Miscellaneous Information (Potassium Replacement Protocol 1 Each Misc) 1 each MISCELLANE DAILY PRN; Protocol PRN Reason: Per Protocol Naloxone HCl (Naloxone 0.4 Mg/Ml 1 Ml Vial) 0.2 mg IV Q2M PRN PRN Reason: Opioid Reversal Ondansetron HCl (Ondansetron 4 Mg/2 Ml Vial) 4 mg IVP Q8HR PRN PRN Reason: Nausea And Vomiting Pantoprazole Sodium (Pantoprazole 40 Mg/10 Ml Vial) 40 mg IVP DAILY [facility] Last Admin: 06/15/21 09:04 Dose: 40 mg Documented by: Zinc Sulfate (Zinc Sulfate 220 Mg Cap) 220 mg PO DAILY [facility] Last Admin: 06/15/21 08:01 Dose: 220 mg Documented by: On examination: VITAL SIGNS: 98.4, 82, 26, 125/57, 92% on the ventilator GENERAL APPEARANCE: Laying in bed, intubated tube feeding RESPIRATORY: Respiratory effort increased Rest of the exam per pulmonary and nursing INVESTIGATIONS, reviewed in the clinical context: June 15: White count 14.1 hemoglobin 12.5 platelets 277 potassium 3.6 BUN 41 creatinine 0.49 June 14: White count 14 hemoglobin 12.5 platelets 256 potassium 3.4 BUN 36 creatinine 0.51 June 13: White count 9.4 hemoglobin 12.2 platelets 221 sodium 139 potassium 3.8 BUN 32 creatinine 0.51 White count 12.8 hemoglobin 12.4 platelets 205. ABG: PH 7.3 pCO2 52 pO2 82 sodium 139 potassium 4.2 creatinine 0.51 albumin 3 Chest CTA: No PE. Interstitial edema. Bilateral pleural effusion. Some pericardial effusion. 2-D echocardiogram: EF 50-55%, right ventricle is severely enlarged. Moderate to severe tricuspid regurgitation. Severe pulmonary hypertension. Assessment and plan: -COVID-19 bilateral pneumonitis, severe: slow to respond IV dexamethasone. -Secondary pneumonia, suspect gram-negative organism IV cefepime -Septic shock: Better IV levo fed: Discontinued -Acute on chronic hypoxic respiratory failure secondary to COVID-19 pneumonia and COPD: Slow to respond Ventilator 70/10 -Chronic hypoxic respiratory failure secondary to COPD On home oxygen -Severe secondary pulmonary hypertension Outpatient opsumit -Essential hypertension Outpatient Coreg. Currently low BP -Hyperlipidemia Lipitor 20 mg daily at bedtime -Acute diastolic congestive heart failure: Slow to respond Lasix 40 mg IV every 12 -Hypoalbuminemia, acute phase reactant ICU. Intubated. IV levo fed resumed today.-IV propofol. IV dexamethasone., IV Lasix. Continue supportive care. Prognosis guarded. Tube feeding . IV cefepime. Sputum for Gram stain and culture.
[2021-06-15 17:56] LABS: Glucose,Whole Blood 128 mg/dL (75-99)
[2021-06-15] MEDS: ATORVASTATIN 20 MG TAB PO SCH (20:21)
[2021-06-15] MEDS: CEFEPIME 2 GM in SODIUM CHLORIDE 0.9% 100 ML IVPB SCH (20:21)
[2021-06-15 23:36] LABS: Glucose,Whole Blood 110 mg/dL (75-99)
[2021-06-16 04:51] LABS: Basophils % (A) 0 %; Eosinophils # (A) 0.1 k/uL (0-0.7); Eosinophils % (A) 0 %; HCT 40.6 % (34.0-46.0); HGB 12.7 gm/dL (11.4-16.0); Hypochromasia Slight; Lymphocytes # (A) 0.9 k/uL (1.0-4.8); Lymphocytes % (A) 5 %; MCH 29.6 pg (25.0-35.0); MCHC 31.2 g/dL (31.0-37.0); MCV 94.7 fL (80.0-100.0); Monocytes # (A) 1.2 k/uL (0-1.0); Monocytes % (A) 7 %; Neutrophils # (A) 14.3 k/uL (1.3-7.7); Neutrophils % (A) 85 %; Platelet Count 319 k/uL (150-450); RBC 4.29 m/uL (3.80-5.40); RDW 15.8 % (11.5-15.5); WBC 16.7 k/uL (3.8-10.6)
[2021-06-16 04:58] LABS: African American GFR (CKD) >90 (>60 ml/min/1.73 sqM); Blood Urea Nitrogen 43 mg/dL (7-17); Calcium 8.6 mg/dL (8.4-10.2); Chloride 97 mmol/L (98-107); Glucose 115 mg/dL (74-99); Non-African American GFR(CKD) >90 (>60 ml/min/1.73 sqM); Potassium 3.9 mmol/L (3.5-5.1); Sodium 141 mmol/L (137-145)
[2021-06-16 05:05] LABS: Anion Gap 6 mmol/L; Carbon Dioxide 38 mmol/L (22-30)
[2021-06-16 05:40] LABS: Glucose,Whole Blood 112 mg/dL (75-99)
[2021-06-16] MEDS: INSULIN ASPART (NovoLOG) 100 UNIT/ML VIAL SQ SCH ×4 (05:49→23:19)
[2021-06-16 05:55] LABS: ABG Base Excess 17.3 mmol/L; ABG PH 7.37 (7.35-7.45); ABG PO2 76 mmHg (83-108); ABG TCO2 45 mmol/L (19-24); Allen Test Performed? Yes
[2021-06-16 05:59] LABS: ABG HCO3 43 mmol/L (21-25); ABG PCO2 74 mmHg (35-45)
[2021-06-16] MEDS ORDERED: POTASSIUM BICARBONATE/CIT AC 20 MEQ TABLET.EFF NG-TUBE SCH (06:00)
--- NOTE | 2021-06-16 07:43 | XR ---
EXAMINATION TYPE: XR chest 1V portable DATE OF EXAM: 06/16/2021 COMPARISON: Chest x-ray 06/15/2021, CT 06/11/2021 HISTORY: Intubated TECHNIQUE: Single frontal view of the chest is obtained. FINDINGS: Endotracheal tube, NG tube, right-sided PICC line are overlying appropriate positions. The re are overlying artifacts. No evident pneumothorax. Patchy basilar density persists. Cardiac mediast inal silhouette is unchanged accounting for differences in technique. Interstitium mildly increased. IMPRESSION: Findings similar to prior exam. Suspect basilar effusions and associated atelectasis. Pn eumonia not excluded. There is underlying emphysema.
[2021-06-16] MEDS: ASCORBIC ACID 500 MG TAB PO SCH (09:48)
[2021-06-16] MEDS: ENOXAPARIN 40 MG/0.4 ML SYRINGE SQ SCH (09:48)
[2021-06-16] MEDS: CHLORHEXIDINE GLUCONATE 15 ML CUP MUCOUS MEM SCH ×2 (09:48→20:16)
[2021-06-16] MEDS: ZINC SULFATE 220 MG CAP PO SCH (09:48)
[2021-06-16] MEDS: CEFEPIME 2 GM in SODIUM CHLORIDE 0.9% 100 ML IVPB SCH ×2 (09:48→20:17)
[2021-06-16] MEDS: CHOLECALCIFEROL 125 MCG (5000 IU) TABLET PO SCH (09:48)
[2021-06-16] MEDS: FUROSEMIDE 10 MG/ML 4 ML VIAL IV SCH (09:48)
[2021-06-16] MEDS: PANTOPRAZOLE 40 MG/10 ML VIAL IVP SCH (09:48)
--- NOTE | 2021-06-16 11:30 | CT ---
EXAMINATION TYPE: CT chest angio for PE DATE OF EXAM: 06/16/2021 COMPARISON: Chest x-ray same date, chest CT 06/11/2021 HISTORY: Persistent hypoxemia. CT DLP: 328.3 mGycm Automated exposure control for dose reduction was used. CONTRAST: CT Chest for pulmonary embolism performed with with IV Contrast, patient injected with 100 mL of Isov ue 370. FINDINGS: LUNGS: There is some improvement in the bilateral pleural effusions, small effusions persists with so me basilar atelectatic change versus edema or pneumonia. The interstitium appears increased. There is underlying centrilobular emphysematous change. Stellate nodule in the right upper lobe the subpleura l location is stable. MEDIASTINUM: There is satisfactory enhancement of the pulmonary artery and its branches, there is ret rocaval pretracheal node which has increased in size, there is pericardial effusion noted similar to prior. Endotracheal tube is in appropriate position. Prominence of pulmonary artery persists. Subcar inal adenopathy, bilateral hilar adenopathy has become evident. NG tube courses into the stomach. Pre vascular node has increased in size. AORTA: No additional significant abnormality is seen. OTHER: There are anasarca changes. There is lateralization of the left hemidiaphragm. IMPRESSION: Suspect improvement in volume status, improvement in patient's pleural effusions. There is underlying emphysema. Mediastinal and hilar adenopathy has developed in the interval. Correlate for pulmonary a rtery hypertension. Pericardial effusion.
[2021-06-16 13:39] LABS: Glucose,Whole Blood 132 mg/dL (75-99)
[2021-06-16] MEDS: methylPREDNISolone SOD SUCCI 125 MG/2 ML VIAL IV SCH ×3 (13:52→23:19)
--- NOTE | 2021-06-16 14:24 | P.PN ---
Subjective Progress Note Date: 06/16/21 60-year-old female, was brought in by EMS, with respiratory distress and respiratory failure. The patient arrived in the emergency department and was not moving any air. She was immediately intubated by the ER physician. The patient apparently complaining of difficulty breathing and shortness of breath. She apparently has never been at this hospital before. Not much information could be obtained. She had cyanosis, agonal respirations, and was obtunded. For that reason, she was intubated. 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 She apparently was receiving bag valve mask device in route. White count 12.4, hemoglobin 13.8, hematocrit 45, platelet count 236,000. PT 12.3 INR 1.2. Blood gases initially showed a pO2 of 125, pCO2 of 82, and pH is 7.2. Sodium 153, potassium 3.6, chlorides 100, CO2 23, anion gap 30, BUN 20, creatinine 0.88. Glucose 51 lactic acid 3.2 calcium 7.7 AST 56, and ALT 38. Troponin was 0.329. Coronavirus testing was positive. Chest x-ray showed bilateral right greater than left diffuse opacities, consistent with either interstitial edema, or interstitial pneumonia. Home medications included Macitentan, albuterol inhaler, vitamin D3, Spiriva, Symbicort, Coreg, potassium chloride, Lasix, iron, Lipitor, amlodipine. Based on these home medications, the patient appears to have COPD, hypertension, and hyperlipidemia. Progress note dated 06/09/2021. The patient was seen yesterday in consultation. She essentially came in with respiratory failure, was intubated in the emergency department, by the ER physician. The patient has severe oxygen-dependent COPD, and remains on the ventilator. She is seen today in room 261. She is currently on volume assist control, with a rate of 24, tidal volume 400, FiO2 70%, and PEEP of 10. Blood gases show pO2 of 99, pCO2 of 52, and a pH is 7.34. The patient's getting saline at 130 mL an hour, norepinephrine at 0.16 mcg/kg/m, and propofol at 40 mcg/kg/m. She was also started on tube feedings, with vital AF, at 10 mL an hour. Her goal rate has not yet been determined by dietary. White count 17.4, hemoglobin 12.9, hematocrit 40.5, platelet count 302,000. Sodium 136, potassium 3.7, chlorides 104, CO2 28, anion gap 4, BUN 27, creatinine 0.74. AST of 65. ALT is 45. Albumin is 3.1. Chest x-ray shows changes of COPD, and mild cardiomegaly, with some minimal interstitial changes. There is some patchy infiltrates, right base greater than left. Reevaluated today on 06/10/2021, patient remains in the ICU, intubated, mechanically ventilated, sedated, but not paralyzed. Patient is on assist control rate of 24 tidal volume 400 FiO2 50% PEEP of 10. ABG showed a pO2 of 70 pCO2 45 pH of 7.42, hence no changes were made in the present ventilator settings. Patient is on propofol at 40 mcg/kg/m, not requiring any pressors at this point, norepinephrine has been discontinued apparently. She is on vital AF at goal. Her BNP level today is 8740 troponin is 0.578. Electrolytes are normal renal profile is normal chest x-ray continues to show by basilar infiltrates. And her echocardiogram showed severe pulmonary hypertension. D- dimer is pending. If elevated, may consider venous Doppler and CT angiogram of the chest. However if not elevated there is no reason to pursue this any furt her, we'll continue Lovenox as ordered. Chest x-ray continues to show by basilar infiltrates, and there is slight improvement in her pulmonary vasculature. Reevaluated today on 06/11/2021, patient remains in the ICU, she is intubated and mechanically ventilated. Patient is on assist control rate of 24 tidal volume 400 FiO2 was 75% and I cut it down to 60% and a increased the PEEP to 14. Patient desaturated last night, hence the nurses and respiratory therapists have been going up on her FiO2, today I decided to increase the PEEP and cut down FiO2 to 60%. ABG on 75% and PEEP of 10 and showed a pO2 of 72 pCO2 51 pH of 7.38. Chest x-ray does not show much of a change in her bilateral infiltrates, d-dimer seems to be a bit elevated, hence I went ahead and recommended CT angiogram of the chest. Patient remains on propofol at 40 she is off norepinephrine remains on vital HPI 50 mL per hour. WBC count today is 1.6 hemoglobin is 11.7. A left lens are normal renal profile is normal Reevaluated today on 06/12/2021, patient remains in the ICU, intubated and mechanically ventilated. Patient is on assist control mode of mechanical ventilation, rate of 26 tidal volume 380 FiO2 50%, and PEEP of [address] angiogram yesterday showed no evidence of pulmonary embolism. However it showed bilateral infiltrates and bilateral pleural effusions consistent with some component of edema, and today I'm recommending diuretics in the form of Lasix 40 mg IV push twice a day. ABG today showed a pO2 of 82 pCO2 of 52 pH of 7.39, and this was on 60% FiO2, and I cut down the FiO2 to 50%. CBC is relatively unremarkable WBC count 12.8 hemoglobin is 12.4. Electrolytes are normal, renal profile is normal sputum cultures have been nondiagnostic. Last night the patient had an episode of increase in her peak airway pressures, responded well to sedation, and flow rates were changed, tidal volume what change. Today there is no evidence of elevated peak airway pressures. Chest x-ray showed no evidence of any significant change compared to her chest x-ray previously. Patient remains on the COVID-19 cocktail. Patient was not given any Remdesivir or Baricitinib, as she did not qualify for either one of them. Remains on Decadron 6 mg IV push daily, Lovenox at 40 mg subcu daily, and today I added Lasix 40 mg IV push twice a day. Patient remains on GI and DVT prophylaxis. Remains on vital HPI at 56 mL/h, and she is off norepinephrine. maintained on propofol at 40 mcg/kg/m Reevaluated today on 06/09/2021, patient remains in the ICU, intubated and mechanically ventilated. She is on assist control rate of 26, tidal volume 380 FiO2 50% PEEP of 14. ABG showed a pO2 of 70 pCO2 55 pH of 7.43. WBC count is 11.4 hemoglobin is 12.2 electrolytes are normal, renal profile is normal. Chest x-ray is showing similar findings compared to the previous chest x-ray, there is suggestion of pulmonary vascular congestion, and bilateral pleural effusions, rather small. Patient received diuretics yesterday, remains on Lasix at 40 mg IV push twice a day. WBC count today is 11.4 hemoglobin is 12.2. Medications remain the same, patient is on COVID-19 cocktail, she is on propofol, she is off paralysis. And her dose of propofol today is 40 mcg/kg/m, patient is also on norepinephrine at 0.02. Echo grams per kilo per minute. On 06/14/2021, the patient is being seen for a follow-up. The patient remains intubated on a mechanical ventilator. The patient is moaning is on propofol which is running at 40 Shan respiratory kilo gram per minute. The patient is quite such as a mechanical ventilator. The patient is an assist-control mode at the rate of 26, tidal volume of 380, FiO2 of 50% with a PEEP of 14. Peak airway pressures around 41. Note that the patient was intubated on 06/08/2021. The peak airway pressure is around 41. The setting of a pressures around 36. The blood gases from this morning showed a pH of 7.52 with a pCO2 of 48 and pO2 of 64. The chest x-ray from today shows adequate expansion of both lungs. There is improved infiltrates throughout both lung interiano bilaterally. There is small bilateral pleural effusion and bibasilar atelectasis is noted. I also reviewed the CAT scan of the chest. This was done on 06/11/2021 and showed bilateral pleural effusions and right more than left. There was also compressive atelectasis in the lung bases bilaterally. There was evidence of centrilobular emphysema and his urine was in a good location. The patient is known to have COPD the patient limited on oxygen at 3 L per minute nasal cannula. Hemodynamically, the patient is off levo fed since 6 this morning. The patient is Is receiving enteral feeding for nutritional support and the patient is receiving vital high protein at the rate of 50 mL an hour. The white cell count from today is at 14 with a hemoglobin of 12.5 and a platelet count of 256. Get is a 36 with a creatinine of 0.5 and sodium level is at 139. The patient remains on vitamin C, vitamin D and Decadron 6 mg IV every 24 hours for COVID 19 infection. At the same time, the patient is on Lovenox 40 mg subcu for DVT prophylaxis. No other significant events overnight. He was started on Lasix and the patient is still on diuresis with 40 mg of IV Lasix every 12 hours. The echo that was done at the time of admission showed an ejection fraction of 50- 55%. Nevertheless, the patient had severely enlarged RV, flattening of the right ventricular septal wall and systole and diastole consistent with right ventricular volume overload/pressure overload. The estimated pulmonary artery p ressure was around 91 mmHg and this is the right ventricular systolic pressure. 06/15/2021, the patient remains intubated on a mechanical ventilator. The patient is sedated with propofol and the patient is currently on Provera running at 40 Shan respiratory kilo gram per minute. This morning, she is quite such as a mechanical ventilator. She does control mode at the rate of 26, tidal volume of 350 with an FiO2 of 50% and a PEEP of 12. Peak airway pressures down to 32 and the static pressure is down to 27 compared to yesterday. The blood gases from today shows a pH of 7.46 with a pCO2 of 58 and pO2 of 64 on the above-mentioned ventilator setting. The patient remains on IV Lasix and the patient is also on Decadron 6 mg an push every 24 hours. The patient is receiving Lasix 40 mg every every 12 hours. The patient is a positive fluid balance of 222 mL over the past 24 hours. The patient is also on a low-dose norepinephrine infusion at 0.03 mcg/kg per minute for hemodynamic support. Urine output is adequate for now. Patient is receiving enteral feeding for nutritional support and the patient is on vital high protein. The patient is afebrile. The patient is arousable while being given a sedation holiday. Blood work from today shows a white cell count of 14.1 with a hemoglobin of 12.5 and a platelet count of 277. The serum bicarbs up to 41 with a sodium level of 141. The BUN 41 with a creatinine of 0.4. Glucose is 159. Inflammatory markers regarding Cogentin infection showed a LDH level of 641 with a CRP level of 2.1. D-dimer is at 1.29. On a separate note, the patient's echo showed a preserved LV function with an ejection fraction of 50-55%. The patient had severe pulmonary hypertension with a pulmonary artery pressure of 91 and significant enlargement of the right ventricular size consistent with volume/pressure overload. 06/16/2021, the patient admits on a mechanical ventilator and continue to have difficulties and actually taking this patient or even further weaning the mechanical ventilator. In summary, the patient remains sedated for now and she remains on IV propofol which is running at around 40 mcg/kg per minute. On yesterday's evaluation, I dropped the PEEP down to 10 and FiO2 at 60%. Nevertheless, the patient started having episodes of desaturation. Furthermore, she started developing copious amount of rest or secretions causing at times some mucous plugging. Aggressive pulmonary toileting was done. Sputum was sent for Gram stain and culture. The patient was started on IV cefepime. Ventilator changes were done and earlier this morning, the patient was placed on an assist- control mode at the rate of 26, tidal volume of 350, FiO2 of 85% with a PEEP of 12. Peak airway pressures around 34. Static pressures 27. Blood gas showed a pH of 7.37 with a pCO2 of 74 and pO2 76. As mentioned earlier, the patient has a severe pulmonary hypertension. 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 In any rate, she does have severe pulmonary hypertension as mentioned earlier in the notes. Her left ventricular ejection fraction is preserved. Pulmonary artery pressure as high as 91. Her overall fluid balance has been +279 mL over the past 24 hours despite being on Lasix 40 mg IV every 12 hours. He is on low dose of norepinephrine running at 0.01 mcg/kg per minute. She is on Gram stain and cultures still pending for now. I ended up repeating the CT angiogram. There was no evidence of any pulmonary embolism. There was improvement in the bilateral pleural effusion and there was still some small better pleural effusion seen along with some atelectatic changes in lung bases and interstitium appeared prominent. There was also centrilobular emphysematous changes and a stellate nodule in the right upper lobe in the subpleural location. There was evidence also of subcarinal adenopathy, bilateral hilar adenopathy and pulmonary artery branches were quite increased in size. This was consistent with pulmonary hypertension. Nevertheless, the vital status is improved compared to the earlier CAT scan. Objective - Vital Signs Vital signs: Vital Signs Temp 98.5 F 06/16/21 12:00 Pulse 101 H 06/16/21 14:00 Resp 27 H 06/16/21 14:00 BP 106/68 06/16/21 08:00 Pulse Ox 91 L 06/16/21 14:00 Intake & Output 06/15/21 06/16/21 06/16/21 18:59 06:59 18:59 Intake Total 7481.350 2159.927 729.614 Output Total 1376 1225 890 Balance -234.568 -34.073 -160.386 Weight 74.6 kg Intake: IV 240 240 240 Cefepime 2 gm In Sodium 100 Chloride 0.9% 100 ml @ 25 mls/hr IVPB Q12HR RUFINO Rx #:[id number] Normal Saline 0.9 @ 20 mL 240 240 140 /hr Intake, IV Titration 313.432 332.927 121.614 Amount Cefepime 2 gm In Sodium 100 Chloride 0.9% 100 ml @ 25 mls/hr IVPB Q12HR RUFINO Rx #:[id number] Norepinephrine 8 mg In 29.981 15.762 21.614 Sodium Chloride 0.9% 250 ml @ 0.05 MCG/KG/MIN 7. 101 mls/hr IV .Q24H RUFINO Rx#:[id number] propofoL 1,000 mg In 283.451 217.165 100.00 Empty Bag 1 bag @ Titrate IV .Q0M RUFINO Rx#: [id number] Tube Feeding 498 528 308 Other 90 90 60 Output: Urine 1376 1225 890 Other: Voiding Method Indwelling Catheter Indwelling Catheter Indwelling Catheter ABP, PAP, CO, CI - Last Documented Arterial Blood Pressure 117/64 - Exam Physical Exam revealed 60-year-old female intubated mechanically ventilated sedated,orogastric and orotracheal tube are both in place. The patient is well sedated with propofol and the patient is calm and comfortable. Head: Atraumatic, normocephalic. Endotracheal tube and orogastric tube are intact. HEENT:[Neck is supple.] [No neck masses.] [No thyromegaly.] [No JVD.] Chest: [Symmetrical chest expansion crackles at the bases no rhonchi and no wheezes.] Cardiac Exam: [Normal S1 and S2, no S3 gallop, no murmur.] Abdomen: [Soft, nontender, no megaly, no rebound, no guarding, normal bowel sounds.] Examination of the extremities revealed easily palpable radial, femoral and pedal pulses. There was no cyanosis, clubbing or edema. Neurological Exam: [Cannot assess, patient is fully sedated. Psychiatric: Could not assess patient is fully sedated. Musculoskeletal, no deformities, normal muscle tone. Examination of the skin revealed no evidence of significant rashes, suspicious appearing nevi or other concerning lesions. - Labs CBC & Chem 7: 06/16/21 04:08 06/16/21 04:08 Labs: Abnormal Lab Results - Last 24 Hours (Table) 06/15/21 06/15/21 06/16/21 Range/Units 17:55 23:33 04:08 WBC 16.7 H (3.8-10.6) k/uL RDW 15.8 H (11.5-15.5) % Neutrophils # 14.3 H (1.3-7.7) k/uL Lymphocytes # 0.9 L (1.0-4.8) k/uL Monocytes # 1.2 H (0-1.0) k/uL ABG pCO2 (35-45) mmHg ABG pO2 (83-108) mmHg ABG HCO3 (21-25) mmol/L ABG Total CO2 (19-24) mmol/L ABG O2 Saturation (94-97) % Chloride (98-107) mmol/L Carbon Dioxide (22-30) mmol/L BUN (7-17) mg/dL Creatinine (0.52-1.04) mg/dL Glucose (74-99) mg/dL POC Glucose (mg/dL) 128 H 110 H (75-99) mg/dL Procalcitonin (0.02-0.09) ng/mL 06/16/21 06/16/21 06/16/21 Range/Units 04:08 04:08 05:39 WBC (3.8-10.6) k/uL RDW (11.5-15.5) % Neutrophils # (1.3-7.7) k/uL Lymphocytes # (1.0-4.8) k/uL Monocytes # (0-1.0) k/uL ABG pCO2 (35-45) mmHg ABG pO2 (83-108) mmHg ABG HCO3 (21-25) mmol/L ABG Total CO2 (19-24) mmol/L ABG O2 Saturation (94-97) % Chloride 97 L (98-107) mmol/L Carbon Dioxide 38 H (22-30) mmol/L BUN 43 H (7-17) mg/dL Creatinine 0.44 L (0.52-1.04) mg/dL Glucose 115 H (74-99) mg/dL POC Glucose (mg/dL) 112 H (75-99) mg/dL Procalcitonin 0.14 H (0.02-0.09) ng/mL 06/16/21 06/16/21 Range/Units 05:50 13:37 WBC (3.8-10.6) k/uL RDW (11.5-15.5) % Neutrophils # (1.3-7.7) k/uL Lymphocytes # (1.0-4.8) k/uL Monocytes # (0-1.0) k/uL ABG pCO2 74 H* (35-45) mmHg ABG pO2 76 L (83-108) mmHg ABG HCO3 43 H* (21-25) mmol/L ABG Total CO2 45 H (19-24) mmol/L ABG O2 Saturation 93.0 L (94-97) % Chloride (98-107) mmol/L Carbon Dioxide (22-30) mmol/L BUN (7-17) mg/dL Creatinine (0.52-1.04) mg/dL Glucose (74-99) mg/dL POC Glucose (mg/dL) 132 H (75-99) mg/dL Procalcitonin (0.02-0.09) ng/mL Microbiology - Last 24 Hours (Table) 06/15/21 16:06 Gram Stain - Preliminary Sputum Sputum Culture - Preliminary Assessment and Plan Plan: 1 acute hypoxic respiratory failure secondary to COPD exacerbation and a component of pneumonia being either Covid 19 related versus bacterial. The patient remains intubated on a mechanical ventilator. I suspect this patient's respiratory status multifactorial. Based on my review on the CAT scan, there was a component of interstitial edema and volume overload and for that reason the patient was subjected to diuresis with IV Lasix and a repeat CAT scan of the chest showed improvement involving status although there was some small bilateral pleural effusions present. The patient is having copious respiratory secretions and superinfection is suspected and based on that the patient was started on IV cefepime. She does have a component of, Covid 19 19 infection and the possibility of Covid 19 pneumonia cannot be completely ruled out. 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 2 chronic hypoxic respiratory failure, maintained on oxygen at 3 L per minute nasal cannula 3 acute ventilator-dependent respiratory failure secondary to above, currently intubated on a mechanical ventilator. 4 severe pulmonary hypertension/right-sided volume overload with elevated pulmonary artery pressure, preserved LV function. 5 hypertension 6 hyperlipidemia 7 small bilateral pleural effusion right more than left 8 hypotension, likely septic in nature, currently off pressors, still on low- dose pressors for hemodynamic support. Plan Continue ventilator support This is a ventilator changes were done. The patient will be kept on a tidal volume of 350, PEEP at 12 with an FiO2 of 85% and will do a gradual FiO2 wean at this point in time. Recheck Pro calcitonin Put the patient on IV Solu Medrol and stop the Decadron Titrate norepinephrine infusion to maintain a mean artery pressure above 65 Continue diuresis for another 24 hours Inflammatory markers regarding Covid 19 was low Continue enteral feeding for nutritional support Restart to [facility] and the patient may potentially get transferred their services regarding her respiratory failure and severe pulmonary hypertension that may need to be addressed as this may be contributing significantly to her hypoxemia respiratory failure. Discussed the case with her Continue enteral feeding for nutritional support Condition is critical and prognosis poor baseline above-mentioned comorbidities. We'll continue to follow. Critically care evaluation that was done and more than 30 minutes. Time with Patient: Greater than 30
[2021-06-16] MEDS: NOREPINEPHRINE 8 MG in SODIUM CHLORIDE 0.9% 250 ML IV SCH (14:42)
--- NOTE | 2021-06-16 17:44 | P.PN ---
Progress Note - Text Progress Note Date: 06/16/21 Hospital course: 60-year-old female with past medical history of COPD on 3 L oxygen ad mitted to the hospital for increased shortness of breath for the last day or so the patient was found to be hypercapnic in the ER and in distress and was intubated patient is currently intubated and sedated Admitted with acute on chronic hypoxic respiratory failure secondary to COVID- 19, COPD,. CHF exacerbation. Bilateral pleural effusion. Patient did not qualify for Remdesivir or Baricitinib, as she did not qualify for the same. Patient on IV Decadron, IV Lasix. June 12: ICU. Intubated. FiO2 50% and a PEEP of 14. CT angiogram done yesterday negative for PE. This showed bilateral infiltrates and bilateral pleural effusion. [place] to be CHF. IV Lasix started. June 13: ICU. Intubated. Ventilator: FiO2 50 PEEP of 14. Telemetry sinus rhythm. Does open eyes. Drips include levo fed and propofol. IV Lasix June 14: ICU. Intubated. Ventilator: FiO2 50% PEEP of 12. Levo fed was discontinued. Remains on propofol. 2 feeding. Telemetry: Sinus rhythm. June 15: ICU. Intubated. Ventilator: FiO2 70 PEEP of 10. Telemetry: Sinus rhythm.. Had a lot of secretions removed through his endotracheal tube. [email or web address] Thick colored. Started on IV cefepime. June 16: ICU. Intubated. Ventilator FiO2 85 PEEP of 12. Back on a small dose of levo fed. Maintain on propofol. Getting 2 feeding. Congestive increasing secretions. Dr. Hennessy spoke to patient's physician/equipment sales specialist at [place] Dr. Ferrera and he is accepted the patient to be transferred that given history of significant pulmonary hypertension. Active Medications Acetaminophen (Acetaminophen Tab 325 Mg Tab) 650 mg PO Q6HR PRN PRN Reason: Mild Pain or Fever > 100.5 Ascorbic Acid (Ascorbic Acid 500 Mg Tab) 1,000 mg PO DAILY [facility] Last Admin: 06/16/21 09:48 Dose: 1,000 mg Documented by: Atorvastatin Calcium (Atorvastatin 20 Mg Tab) 20 mg PO HS [facility] Last Admin: 06/15/21 20:21 Dose: 20 mg Documented by: Chlorhexidine Gluconate (Chlorhexidine Gluconate 15 Ml Cup) 15 ml MUCOUS MEM BID [facility] Last Admin: 06/16/21 09:48 Dose: 15 ml Documented by: Cholecalciferol (Cholecalciferol 125 Mcg (5000 Iu) Tablet) 125 mcg PO DAILY [facility] Last Admin: 06/16/21 09:48 Dose: 125 mcg Documented by: Enoxaparin Sodium (Enoxaparin 40 Mg/0.4 Ml Syringe) 40 mg SQ DAILY [facility] Last Admin: 06/16/21 09:48 Dose: 40 mg Documented by: Furosemide (Furosemide 10 Mg/Ml 4 Ml Vial) 40 mg IV Q12HR [facility] Last Admin: 06/16/21 09:48 Dose: 40 mg Documented by: Propofol 1,000 mg/ IV Solution 100 mls @ 0 mls/hr IV .Q0M [facility]; Protocol Last Admin: 06/16/21 11:05 Dose: 45 mcg/kg/min, 20.142 mls/hr Documented by: Norepinephrine Bitartrate 8 mg (/ Sodium Chloride) 258 mls @ 7.101 mls/hr IV .Q24H [facility]; Protocol Last Admin: 06/16/21 14:42 Dose: Not Given Documented by: Cefepime HCl 2 gm/ Sodium (Chloride) 100 mls @ 25 mls/hr IVPB Q12HR [facility]; Protocol Last Admin: 06/16/21 09:48 Dose: 25 mls/hr Documented by: Insulin Aspart (Insulin Aspart (Novolog) 100 Unit/Ml Vial) 0 unit SQ Q6HR [facility]; Protocol Last Admin: 06/16/21 13:44 Dose: Not Given Documented by: Methylprednisolone Sodium Succinate (Methylprednisolone Sod Succi 125 Mg/2 Ml Vial) 60 mg IV Q6HR [facility] Last Admin: 06/16/21 13:52 Dose: 60 mg Documented by: Miscellaneous Information (Potassium Replacement Protocol 1 Each Misc) 1 each MISCELLANE DAILY PRN; Protocol PRN Reason: Per Protocol Naloxone HCl (Naloxone 0.4 Mg/Ml 1 Ml Vial) 0.2 mg IV Q2M PRN PRN Reason: Opioid Reversal Ondansetron HCl (Ondansetron 4 Mg/2 Ml Vial) 4 mg IVP Q8HR PRN PRN Reason: Nausea And Vomiting Pantoprazole Sodium (Pantoprazole 40 Mg/10 Ml Vial) 40 mg IVP DAILY [facility] Last Admin: 06/16/21 09:48 Dose: 40 mg Documented by: Zinc Sulfate (Zinc Sulfate 220 Mg Cap) 220 mg PO DAILY [facility] Last Admin: 06/16/21 09:48 Dose: 220 mg Documented by: On examination: VITAL SIGNS: 99, 117, 29, 117/67, 86% on the ventilator GENERAL APPEARANCE: Laying in bed, intubated tube feeding RESPIRATORY: Respiratory effort increased Rest of the exam per pulmonary and nursing INVESTIGATIONS, reviewed in the clinical context: June 16: White count 16.7 hemoglobin 12.7 platelets 319 potassium 3.9 creatinine 0.44 procalcitonin 0.14 June 15: White count 14.1 hemoglobin 12.5 platelets 277 potassium 3.6 BUN 41 creatinine 0.49 June 14: White count 14 hemoglobin 12.5 platelets 256 potassium 3.4 BUN 36 creatinine 0.51 June 13: White count 9.4 hemoglobin 12.2 platelets 221 sodium 139 potassium 3.8 BUN 32 creatinine 0.51 White count 12.8 hemoglobin 12.4 platelets 205. ABG: PH 7.3 pCO2 52 pO2 82 sodium 139 potassium 4.2 creatinine 0.51 albumin 3 Chest CTA: No PE. Interstitial edema. Bilateral pleural effusion. Some pericardial effusion. 2-D echocardiogram: EF 50-55%, right ventricle is severely enlarged. Moderate to severe tricuspid regurgitation. Severe pulmonary hypertension. Assessment and plan: -COVID-19 bilateral pneumonitis, significant: slow to respond IV dexamethasone. -Secondary pneumonia, suspect gram-negative organism, cultures pending IV cefepime -Septic shock: Present IV levo fed: Small dose -Acute on chronic hypoxic respiratory failure secondary to COVID-19 pneumonia and COPD: Not improving Ventilator 85/12 -Chronic hypoxic respiratory failure secondary to COPD On home oxygen -Severe secondary pulmonary hypertension Outpatient [facility] -Essential hypertension Outpatient [facility]. Currently low BP -Hyperlipidemia Lipitor 20 mg daily at bedtime -Acute diastolic congestive heart failure: Slow to respond Lasix 40 mg IV every 12 -Hypoalbuminemia, acute phase reactant ICU. Intubated. IV levo fed,.-IV propofol. IV dexamethasone., IV Lasix. Continue supportive care. Prognosis guarded. Tube feeding . IV cefepime. Sputum for Gram stain and culture. Dr. Hennessy spoke to patient's equipment sales specialist Dr. Ferrera in [place] and the patient has been accepted there
[2021-06-16 17:49] LABS: Glucose,Whole Blood 150 mg/dL (75-99)
[2021-06-16] MEDS: ATORVASTATIN 20 MG TAB PO SCH (20:17)
[2021-06-16] MEDS: ACETAMINOPHEN TAB 325 MG TAB PO PRN (20:37)
[2021-06-16 23:16] LABS: Glucose,Whole Blood 156 mg/dL (75-99)
[2021-06-17] MEDS: NOREPINEPHRINE 8 MG in SODIUM CHLORIDE 0.9% 250 ML IV SCH (00:53)
[2021-06-17] MEDS: ACETAMINOPHEN TAB 325 MG TAB PO PRN (02:13)
[2021-06-17 04:29] LABS: Basophils % (A) 0 %; Eosinophils % (A) 0 %; HCT 43.5 % (34.0-46.0); HGB 13.5 gm/dL (11.4-16.0); Hypochromasia Moderate; Lymphocytes # (A) 0.4 k/uL (1.0-4.8); Lymphocytes % (A) 2 %; MCH 29.5 pg (25.0-35.0); MCHC 30.9 g/dL (31.0-37.0); MCV 95.4 fL (80.0-100.0); Mean Platelet Volume 8.2; Monocytes # (A) 0.4 k/uL (0-1.0); Monocytes % (A) 3 %; Neutrophils # (A) 16.3 k/uL (1.3-7.7); Neutrophils % (A) 95 %; Platelet Count 319 k/uL (150-450); RBC 4.56 m/uL (3.80-5.40); RDW 15.6 % (11.5-15.5); WBC 17.2 k/uL (3.8-10.6)
[2021-06-17 04:36] LABS: Potassium 4.5 mmol/L (3.5-5.1)
[2021-06-17 04:39] LABS: African American GFR (CKD) >90 (>60 ml/min/1.73 sqM); Anion Gap 4 mmol/L; Blood Urea Nitrogen 59 mg/dL (7-17); Calcium 8.6 mg/dL (8.4-10.2); Carbon Dioxide 39 mmol/L (22-30); Chloride 97 mmol/L (98-107); Glucose 161 mg/dL (74-99); Non-African American GFR(CKD) >90 (>60 ml/min/1.73 sqM); Sodium 140 mmol/L (137-145)
[2021-06-17 05:33] LABS: Glucose,Whole Blood 156 mg/dL (75-99)
[2021-06-17] MEDS: INSULIN ASPART (NovoLOG) 100 UNIT/ML VIAL SQ SCH ×2 (05:41→12:00)
[2021-06-17] MEDS: methylPREDNISolone SOD SUCCI 125 MG/2 ML VIAL IV SCH ×2 (05:42→12:02)
[2021-06-17 06:00] LABS: ABG Base Excess 13.3 mmol/L; ABG HCO3 39 mmol/L (21-25); ABG PH 7.32 (7.35-7.45); ABG PO2 72 mmHg (83-108); ABG TCO2 42 mmol/L (19-24); Allen Test Performed? Yes
[2021-06-17 06:10] LABS: ABG PCO2 77 mmHg (35-45)
--- NOTE | 2021-06-17 07:57 | XR ---
EXAMINATION TYPE: XR chest 1V portable DATE OF EXAM: 06/17/2021 COMPARISON: 06/16/2021 INDICATION: Assess lungs TECHNIQUE: Single frontal view of the chest is obtained. FINDINGS: The heart size is normal. The pulmonary vasculature is prominent. Diffuse increased lung markings are present. This more focal in the right lower lobe. Correlate for p neumonia. PICC line enters on the right with the tip in the superior vena cava region. Endotracheal tube tip is above julee. Nasogastric tube transverses the thorax. IMPRESSION: 1. Developing right lower lobe infiltrate. Correlate for pneumonia. 2. Prominent pulmonary vascular markings and mild diffuse increased lung markings. Consider some volu me overload. 3. Lines and catheters discussed above.
[2021-06-17 08:30] VITALS: BP 115/73
[2021-06-17] MEDS: ASCORBIC ACID 500 MG TAB PO SCH (08:53)
[2021-06-17] MEDS: ENOXAPARIN 40 MG/0.4 ML SYRINGE SQ SCH (08:53)
[2021-06-17] MEDS: PANTOPRAZOLE 40 MG/10 ML VIAL IVP SCH (08:53)
[2021-06-17] MEDS: CEFEPIME 2 GM in SODIUM CHLORIDE 0.9% 100 ML IVPB SCH (08:54)
[2021-06-17] MEDS: ZINC SULFATE 220 MG CAP PO SCH (08:54)
[2021-06-17] MEDS: CHOLECALCIFEROL 125 MCG (5000 IU) TABLET PO SCH (08:54)
[2021-06-17] MEDS: CHLORHEXIDINE GLUCONATE 15 ML CUP MUCOUS MEM SCH (08:54)
[2021-06-17] MEDS ORDERED: VANCOMYCIN IV PER PHARMACY 1 EACH MISC MISCELLANE PRN (09:05)
[2021-06-17] MEDS ORDERED: SODIUM CHLORIDE 0.9% 1,000 ML IV ONE ×2 (09:21→09:22)
[2021-06-17] MEDS ORDERED: VANCOMYCIN 1,500 MG in SODIUM CHLORIDE 0.9% 250 ML IVPB SCH (10:00)
[2021-06-17 11:01] VITALS: RESP 26
[2021-06-17 12:00] LABS: Glucose,Whole Blood 122 mg/dL (75-99)
--- NOTE | 2021-06-17 12:48 | P.PN ---
Subjective Progress Note Date: 06/17/21 60-year-old female, was brought in by EMS, with respiratory distress and respiratory failure. The patient arrived in the emergency department and was not moving any air. She was immediately intubated by the ER physician. The patient apparently complaining of difficulty breathing and shortness of breath. She apparently has never been at this hospital before. Not much information could be obtained. She had cyanosis, agonal respirations, and was obtunded. For that reason, she was intubated. 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 She apparently was receiving bag valve mask device in route. White count 12.4, hemoglobin 13.8, hematocrit 45, platelet count 236,000. PT 12.3 INR 1.2. Blood gases initially showed a pO2 of 125, pCO2 of 82, and pH is 7.2. Sodium 153, potassium 3.6, chlorides 100, CO2 23, anion gap 30, BUN 20, creatinine 0.88. Glucose 51 lactic acid 3.2 calcium 7.7 AST 56, and ALT 38. Troponin was 0.329. Coronavirus testing was positive. Chest x-ray showed bilateral right greater than left diffuse opacities, consistent with either interstitial edema, or interstitial pneumonia. Home medications included Macitentan, albuterol inhaler, vitamin D3, Spiriva, Symbicort, Coreg, potassium chloride, Lasix, iron, Lipitor, amlodipine. Based on these home medications, the patient appears to have COPD, hypertension, and hyperlipidemia. Progress note dated 06/09/2021. The patient was seen yesterday in consultation. She essentially came in with respiratory failure, was intubated in the emergency department, by the ER physician. The patient has severe oxygen-dependent COPD, and remains on the ventilator. She is seen today in room 261. She is currently on volume assist control, with a rate of 24, tidal volume 400, FiO2 70%, and PEEP of 10. Blood gases show pO2 of 99, pCO2 of 52, and a pH is 7.34. The patient's getting saline at 130 mL an hour, norepinephrine at 0.16 mcg/kg/m, and propofol at 40 mcg/kg/m. She was also started on tube feedings, with vital AF, at 10 mL an hour. Her goal rate has not yet been determined by dietary. White count 17.4, hemoglobin 12.9, hematocrit 40.5, platelet count 302,000. Sodium 136, potassium 3.7, chlorides 104, CO2 28, anion gap 4, BUN 27, creatinine 0.74. AST of 65. ALT is 45. Albumin is 3.1. Chest x-ray shows changes of COPD, and mild cardiomegaly, with some minimal interstitial changes. There is some patchy infiltrates, right base greater than left. Reevaluated today on 06/10/2021, patient remains in the ICU, intubated, mechanically ventilated, sedated, but not paralyzed. Patient is on assist control rate of 24 tidal volume 400 FiO2 50% PEEP of 10. ABG showed a pO2 of 70 pCO2 45 pH of 7.42, hence no changes were made in the present ventilator settings. Patient is on propofol at 40 mcg/kg/m, not requiring any pressors at this point, norepinephrine has been discontinued apparently. She is on vital AF at goal. Her BNP level today is 8740 troponin is 0.578. Electrolytes are normal renal profile is normal chest x-ray continues to show by basilar infiltrates. And her echocardiogram showed severe pulmonary hypertension. D- dimer is pending. If elevated, may consider venous Doppler and CT angiogram of the chest. However if not elevated there is no reason to pursue this any furt her, we'll continue Lovenox as ordered. Chest x-ray continues to show by basilar infiltrates, and there is slight improvement in her pulmonary vasculature. Reevaluated today on 06/11/2021, patient remains in the ICU, she is intubated and mechanically ventilated. Patient is on assist control rate of 24 tidal volume 400 FiO2 was 75% and I cut it down to 60% and a increased the PEEP to 14. Patient desaturated last night, hence the nurses and respiratory therapists have been going up on her FiO2, today I decided to increase the PEEP and cut down FiO2 to 60%. ABG on 75% and PEEP of 10 and showed a pO2 of 72 pCO2 51 pH of 7.38. Chest x-ray does not show much of a change in her bilateral infiltrates, d-dimer seems to be a bit elevated, hence I went ahead and recommended CT angiogram of the chest. Patient remains on propofol at 40 she is off norepinephrine remains on vital HPI 50 mL per hour. WBC count today is 1.6 hemoglobin is 11.7. A left lens are normal renal profile is normal Reevaluated today on 06/12/2021, patient remains in the ICU, intubated and mechanically ventilated. Patient is on assist control mode of mechanical ventilation, rate of 26 tidal volume 380 FiO2 50%, and PEEP of 14 CT angiogram yesterday showed no evidence of pulmonary embolism. However it showed bilateral infiltrates and bilateral pleural effusions consistent with some component of edema, and today I'm recommending diuretics in the form of Lasix 40 mg IV push twice a day. ABG today showed a pO2 of 82 pCO2 of 52 pH of 7.39, and this was on 60% FiO2, and I cut down the FiO2 to 50%. CBC is relatively unremarkable WBC count 12.8 hemoglobin is 12.4. Electrolytes are normal, renal profile is normal sputum cultures have been nondiagnostic. Last night the patient had an episode of increase in her peak airway pressures, responded well to sedation, and flow rates were changed, tidal volume what change. Today there is no evidence of elevated peak airway pressures. Chest x-ray showed no evidence of any significant change compared to her chest x-ray previously. Patient remains on the COVID-19 cocktail. Patient was not given any Remdesivir or Baricitinib, as she did not qualify for either one of them. Remains on Decadron 6 mg IV push daily, Lovenox at 40 mg subcu daily, and today I added Lasix 40 mg IV push twice a day. Patient remains on GI and DVT prophylaxis. Remains on vital HPI at 56 mL/h, and she is off norepinephrine. maintained on propofol at 40 mcg/kg/m Reevaluated today on 06/09/2021, patient remains in the ICU, intubated and mechanically ventilated. She is on assist control rate of 26, tidal volume 380 FiO2 50% PEEP of 14. ABG showed a pO2 of 70 pCO2 55 pH of 7.43. WBC count is 11.4 hemoglobin is 12.2 electrolytes are normal, renal profile is normal. Chest x-ray is showing similar findings compared to the previous chest x-ray, there is suggestion of pulmonary vascular congestion, and bilateral pleural effusions, rather small. Patient received diuretics yesterday, remains on Lasix at 40 mg IV push twice a day. WBC count today is 11.4 hemoglobin is 12.2. Medications remain the same, patient is on COVID-19 cocktail, she is on propofol, she is off paralysis. And her dose of propofol today is 40 mcg/kg/m, patient is also on norepinephrine at 0.02. Echo grams per kilo per minute. On 06/14/2021, the patient is being seen for a follow-up. The patient remains intubated on a mechanical ventilator. The patient is moaning is on propofol which is running at 40 Shan respiratory kilo gram per minute. The patient is quite such as a mechanical ventilator. The patient is an assist-control mode at the rate of 26, tidal volume of 380, FiO2 of 50% with a PEEP of 14. Peak airway pressures around 41. Note that the patient was intubated on 06/08/2021. The peak airway pressure is around 41. The setting of a pressures around 36. The blood gases from this morning showed a pH of 7.52 with a pCO2 of 48 and pO2 of 64. The chest x-ray from today shows adequate expansion of both lungs. There is improved infiltrates throughout both lung interiano bilaterally. There is small bilateral pleural effusion and bibasilar atelectasis is noted. I also reviewed the CAT scan of the chest. This was done on 06/11/2021 and showed bilateral pleural effusions and right more than left. There was also compressive atelectasis in the lung bases bilaterally. There was evidence of centrilobular emphysema and his urine was in a good location. The patient is known to have COPD the patient limited on oxygen at 3 L per minute nasal cannula. Hemodynamically, the patient is off levo fed since 6 this morning. The patient is Is receiving enteral feeding for nutritional support and the patient is receiving vital high protein at the rate of 50 mL an hour. The white cell count from today is at 14 with a hemoglobin of 12.5 and a platelet count of 256. Get is a 36 with a creatinine of 0.5 and sodium level is at 139. The patient remains on vitamin C, vitamin D and Decadron 6 mg IV every 24 hours for COVID 19 infection. At the same time, the patient is on Lovenox 40 mg subcu for DVT prophylaxis. No other significant events overnight. He was started on Lasix and the patient is still on diuresis with 40 mg of IV Lasix every 12 hours. The echo that was done at the time of admission showed an ejection fraction of 50- 55%. Nevertheless, the patient had severely enlarged RV, flattening of the right ventricular septal wall and systole and diastole consistent with right ventricular volume overload/pressure overload. The estimated pulmonary artery p ressure was around 91 mmHg and this is the right ventricular systolic pressure. 06/15/2021, the patient remains intubated on a mechanical ventilator. The patient is sedated with propofol and the patient is currently on Provera running at 40 Shan respiratory kilo gram per minute. This morning, she is quite such as a mechanical ventilator. She does control mode at the rate of 26, tidal volume of 350 with an FiO2 of 50% and a PEEP of 12. Peak airway pressures down to 32 and the static pressure is down to 27 compared to yesterday. The blood gases from today shows a pH of 7.46 with a pCO2 of 58 and pO2 of 64 on the above-mentioned ventilator setting. The patient remains on IV Lasix and the patient is also on Decadron 6 mg an push every 24 hours. The patient is receiving Lasix 40 mg every every 12 hours. The patient is a positive fluid balance of 222 mL over the past 24 hours. The patient is also on a low-dose norepinephrine infusion at 0.03 mcg/kg per minute for hemodynamic support. Urine output is adequate for now. Patient is receiving enteral feeding for nutritional support and the patient is on vital high protein. The patient is afebrile. The patient is arousable while being given a sedation holiday. Blood work from today shows a white cell count of 14.1 with a hemoglobin of 12.5 and a platelet count of 277. The serum bicarbs up to 41 with a sodium level of 141. The BUN 41 with a creatinine of 0.4. Glucose is 159. Inflammatory markers regarding Cogentin infection showed a LDH level of 641 with a CRP level of 2.1. D-dimer is at 1.29. On a separate note, the patient's echo showed a preserved LV function with an ejection fraction of 50-55%. The patient had severe pulmonary hypertension with a pulmonary artery pressure of 91 and significant enlargement of the right ventricular size consistent with volume/pressure overload. 06/16/2021, the patient admits on a mechanical ventilator and continue to have difficulties and actually taking this patient or even further weaning the mechanical ventilator. In summary, the patient remains sedated for now and she remains on IV propofol which is running at around 40 mcg/kg per minute. On yesterday's evaluation, I dropped the PEEP down to 10 and FiO2 at 60%. Nevertheless, the patient started having episodes of desaturation. Furthermore, she started developing copious amount of rest or secretions causing at times some mucous plugging. Aggressive pulmonary toileting was done. Sputum was sent for Gram stain and culture. The patient was started on IV cefepime. Ventilator changes were done and earlier this morning, the patient was placed on an assist- control mode at the rate of 26, tidal volume of 350, FiO2 of 85% with a PEEP of 12. Peak airway pressures around 34. Static pressures 27. Blood gas showed a pH of 7.37 with a pCO2 of 74 and pO2 76. As mentioned earlier, the patient has a severe pulmonary hypertension. I discussed the case further with his slp and I was able to talk to one of the physicians in the group of pulmonary taking care of this patient and the plan was to start this patient on Opsimut on an outpatient basis in fact the patient started treatment and she took only a few tablets prior to her being admitted to our hospital and placed on a mechanical ventilation. In any rate, she does have severe pulmonary hypertension as mentioned earlier in the notes. Her left ventricular ejection fraction is preserved. Pulmonary artery pressure as high as 91. Her overall fluid balance has been +279 mL over the past 24 hours despite being on Lasix 40 mg IV every 12 hours. He is on low dose of norepinephrine running at 0.01 mcg/kg per minute. She is on Gram stain and cultures still pending for now. I ended up repeating the CT angiogram. There was no evidence of any pulmonary embolism. There was improvement in the bilateral pleural effusion and there was still some small better pleural effusion seen along with some atelectatic changes in lung bases and interstitium appeared prominent. There was also centrilobular emphysematous changes and a stellate nodule in the right upper lobe in the subpleural location. There was evidence also of subcarinal adenopathy, bilateral hilar adenopathy and pulmonary artery branches were quite increased in size. This was consistent with pulmonary hypertension. Nevertheless, the vital status is improved compared to the earlier CAT scan. 06/17/2021, seeing the patient for a follow-up. A complicated case of COPD with severe pulmonary hypertension was currently intubated on mechanical ventilator post: 19 infection. There is also suspicion for superinfection as the patient is febrile and the patient developed copious amount of rest or secretions. The cultures from the sputum is showing presumptive staph aureus. The patient was on cefepime and the patient will be also started on vancomycin to cover MRSA. On today's evaluation, the patient is sedated and the patient is currently on propofol which is running at 40 mcg/kg per minute. The patient is well sedated and the patient is calm and comfortable. The patient on assist-control mode of mechanical ventilation. The patient is currently on assist control of 26, tidal volume of 350, FiO2 of 85% with a PEEP of 12. The peak airway pressures around 32. Static pressures 27. This is compatible to yesterday. The chest x-ray findings remain unchanged. Computed tomography scan of the chest was noted from yesterday. The blood gases from today shows a pH of 7.32 with a pCO2 of 77 and pO2 of 77. The patient had dropped her urine output as the patient was being diuresed aggressively. Following that, stop the Lasix and I give the patient bolus of normal saline another bolus will be given today because of some increased tachycardia and relative hypotension. She is having temperature with a T-max of 11.7. Her white cell count 17.2 with a hemoglobin of 13. Sodium is at 140 with a potassium level of 4.5. BNP is at 59 with a creatinine of 0.6. For now the patient is off Lasix. Overall fluid balance over the past 24 hours is -268 mL. As mentioned, the chest x-ray shows some right lower lobe pulmonary infiltration and increased pulmonary vascular markings bilaterally. All of the lines including the ET tube is in a good location. On a separate note, I have contacted the physician group at [facility] and I spoke yesterday extensively with Dr. Antonio Ferrera regarding this case. The family is under the understanding that she has severe pulmonary hypertension treating the pulmonary hypertension with of improved her condition significantly. She was started on Opsimut on outpatient basis. I think pulmonary hypertension is only 1 factors. I suggested transferring her to [facility] and Dr. Ferrera accepted. Awaiting for further logistics and wants to obtain clearance from insurance for this transfer, this may take place within next 24-48 hours. If not, the patient will be kept here under my care. Objective - Vital Signs Vital signs: Vital Signs Temp 98.7 F 06/17/21 12:00 Pulse 112 H 06/17/21 12:00 Resp 26 H 06/17/21 12:00 BP 115/73 06/17/21 08:00 Pulse Ox 92 L 06/17/21 12:00 Intake & Output 06/16/21 06/17/21 06/17/21 18:59 06:59 18:59 Intake Total 5047.754 9701.110 2848.804 Output Total 1150 450 225 Balance 29.614 5584.215 7058.804 Weight 74.6 kg Intake: IV 340 1320 2470 Cefepime 2 gm In Sodium 100 100 100 Chloride 0.9% 100 ml @ 25 mls/hr IVPB Q12HR RUFINO Rx #:[id number] NACL bolus 2000 Normal Saline 0.9 @ 20 mL 240 1220 120 /hr Vancomycin 250 Intake, IV Titration 221.614 310.110 114.804 Amount Norepinephrine 8 mg In 21.614 21.445 10.626 Sodium Chloride 0.9% 250 ml @ 0.05 MCG/KG/MIN 7. 101 mls/hr IV .Q24H RUFINO Rx#:[id number] propofoL 1,000 mg In 200.00 288.665 104.178 Empty Bag 1 bag @ Titrate IV .Q0M RUFINO Rx#: [id number] Tube Feeding 528 528 264 Other 90 90 Output: Urine 1150 450 225 Other: Voiding Method Indwelling Catheter Indwelling Catheter Indwelling Catheter ABP, PAP, CO, CI - Last Documented Arterial Blood Pressure 110/56 - Exam Physical Exam revealed 60-year-old female intubated mechanically ventilated sedated,orogastric and orotracheal tube are both in place. The patient is well sedated with propofol and the patient is calm and comfortable. Head: Atraumatic, normocephalic. Endotracheal tube and orogastric tube are intact. HEENT:[Neck is supple.] [No neck masses.] [No thyromegaly.] [No JVD.] Chest: [Symmetrical chest expansion crackles at the bases no rhonchi and no wheezes.] Cardiac Exam: [Normal S1 and S2, no S3 gallop, no murmur.] Abdomen: [Soft, nontender, no megaly, no rebound, no guarding, normal bowel sounds.] Examination of the extremities revealed easily palpable radial, femoral and pedal pulses. There was no cyanosis, clubbing or edema. Neurological Exam: [Cannot assess, patient is fully sedated. Psychiatric: Could not assess patient is fully sedated. Musculoskeletal, no deformities, normal muscle tone. Examination of the skin revealed no evidence of significant rashes, suspicious appearing nevi or other concerning lesions. - Labs CBC & Chem 7: 06/17/21 04:17 06/17/21 04:17 Labs: Abnormal Lab Results - Last 24 Hours (Table) 06/16/21 06/16/21 06/16/21 Range/Units 04:08 13:37 17:47 WBC (3.8-10.6) k/uL MCHC (31.0-37.0) g/dL RDW (11.5-15.5) % Neutrophils # (1.3-7.7) k/uL Lymphocytes # (1.0-4.8) k/uL ABG pH (7.35-7.45) ABG pCO2 (35-45) mmHg ABG pO2 (83-108) mmHg ABG HCO3 (21-25) mmol/L ABG Total CO2 (19-24) mmol/L ABG O2 Saturation (94-97) % Chloride (98-107) mmol/L Carbon Dioxide (22-30) mmol/L BUN (7-17) mg/dL Glucose (74-99) mg/dL POC Glucose (mg/dL) 132 H 150 H (75-99) mg/dL Procalcitonin 0.14 H (0.02-0.09) ng/mL 06/16/21 06/17/21 06/17/21 Range/Units 23:14 04:17 04:17 WBC 17.2 H (3.8-10.6) k/uL MCHC 30.9 L (31.0-37.0) g/dL RDW 15.6 H (11.5-15.5) % Neutrophils # 16.3 H (1.3-7.7) k/uL Lymphocytes # 0.4 L (1.0-4.8) k/uL ABG pH (7.35-7.45) ABG pCO2 (35-45) mmHg ABG pO2 (83-108) mmHg ABG HCO3 (21-25) mmol/L ABG Total CO2 (19-24) mmol/L ABG O2 Saturation (94-97) % Chloride 97 L (98-107) mmol/L Carbon Dioxide 39 H (22-30) mmol/L BUN 59 H (7-17) mg/dL Glucose 161 H (74-99) mg/dL POC Glucose (mg/dL) 156 H (75-99) mg/dL Procalcitonin (0.02-0.09) ng/mL 06/17/21 06/17/21 06/17/21 Range/Units 05:32 05:57 11:59 WBC (3.8-10.6) k/uL MCHC (31.0-37.0) g/dL RDW (11.5-15.5) % Neutrophils # (1.3-7.7) k/uL Lymphocytes # (1.0-4.8) k/uL ABG pH 7.32 L (7.35-7.45) ABG pCO2 77 H* (35-45) mmHg ABG pO2 72 L (83-108) mmHg ABG HCO3 39 H (21-25) mmol/L ABG Total CO2 42 H (19-24) mmol/L ABG O2 Saturation 92.0 L (94-97) % Chloride (98-107) mmol/L Carbon Dioxide (22-30) mmol/L BUN (7-17) mg/dL Glucose (74-99) mg/dL POC Glucose (mg/dL) 156 H 122 H (75-99) mg/dL Procalcitonin (0.02-0.09) ng/mL Microbiology - Last 24 Hours (Table) 06/15/21 16:06 Gram Stain - Preliminary Sputum Sputum Culture - Preliminary Presumptive Staph aureus Assessment and Plan Plan: 1 acute hypoxic respiratory failure secondary to COPD exacerbation and a component of pneumonia being either Covid 19 related versus bacterial. The patient remains intubated on a mechanical ventilator. I suspect this patient's respiratory status multifactorial. Based on my review on the CAT scan, there was a component of interstitial edema and volume overload and for that reason the patient was subjected to diuresis with IV Lasix and a repeat CAT scan of the chest showed improvement involving status although there was some small bilateral pleural effusions present. The patient is having copious respiratory secretions and superinfection with staph aureus is suspected and based on that the patient was started on IV cefepime and vancomycin was also added today to cover the patient for MRSA infections. Meanwhile, the patient may have a component of, Covid 19 infection and the possibility of Covid 19 pneumonia cannot be completely ruled out. Furthermore, the patient has severe pulmonary hypertension as discussed earlier in the records and the patient was started on Opsimut on outpatient basis for slp. 2 chronic hypoxic respiratory failure, maintained on oxygen at 3 L per minute nasal cannula 3 acute ventilator-dependent respiratory failure secondary to above, currently intubated on a mechanical ventilator. 4 severe pulmonary hypertension/right-sided volume overload with elevated pulmonary artery pressure, preserved LV function. 5 hypertension 6 hyperlipidemia 7 small bilateral pleural effusion right more than left 8 hypotension, likely septic in nature, currently off pressors, still on low-dos e pressors for hemodynamic support. 9 fever on that investigation 10 sinus tachycardia 11 mild leukocytosis, likely secondary to above Plan Continue ventilator support No ventilator changes will be done today Monitor the sputum cultures and continue the current antibiotic coverage including a combination of cefepime and vancomycin Monitor fever pattern Pro calcitonin level is slightly elevated at 0.32 and dropped down to 0.14 continued IV Solu Medrol Continue bronchodilators Hold diuretics for now and give the patient IV fluids and the patient will receive and the total of 2 L of IV fluid bolus rates underlying fever and tachycardia and questionable early signs of sepsis. They this will be discontinued for now. Inflammatory markers regarding Covid 19 was low Continue enteral feeding for nutritional support Restart to [facility] and the patient may potentially get transferred their services regarding her respiratory failure and severe pulmonary hypertension that may need to be addressed as this may be contributing significantly to her hypoxemia respiratory failure. Discussed the case with her Continue enteral feeding for nutritional support Condition is critical and prognosis poor baseline above-mentioned comorbidities. We'll continue to follow. possible transfer to [facility] Case was discussed with Dr. Antonio Ferrera Critically care evaluation that was done and more than 30 minutes. Time with Patient: Greater than 30
[2021-06-17 16:28] VITALS: PULSE 118; TEMP 98.3
--- NOTE | 2021-06-17 18:45 | P.DS ---
Providers Date of admission: 06/08/21 09:36 Expected date of discharge: 06/17/21 Attending physician: Ney Good Consults: 06/08/21 09:36 Consult Physician Stat Consulting Provider: Shan Padilla Consult Reason/Comments: Respiratory failure Do you want consulting provider notified?: Already Contacted 06/08/21 13:33 Consult Physician Routine Consulting Provider: Flori Moore Consult Reason/Comments: elevated trop Do you want consulting provider notified?: Yes Primary care physician: Nitin Tim Hospital Course: Hospital course: 60-year-old female with past medical history of COPD on 3 L oxygen admitted to the hospital for increased shortness of breath for the last day or so the patient was found to be hypercapnic in the ER and in distress and was int ubated patient is currently intubated and sedated Admitted with acute on chronic hypoxic respiratory failure secondary to COVID- 19, COPD,. CHF exacerbation. Bilateral pleural effusion. Patient did not qualify for Remdesivir or Baricitinib, as she did not qualify for the same. Patient on IV Decadron, IV Lasix. June 12: ICU. Intubated. FiO2 50% and a PEEP of 14. CT angiogram done yesterday negative for PE. This showed bilateral infiltrates and bilateral pleural effusion. Pioneer to be CHF. IV Lasix started. June 13: ICU. Intubated. Ventilator: FiO2 50 PEEP of 14. Telemetry sinus rhythm. Does open eyes. Drips include levo fed and propofol. IV Lasix June 14: ICU. Intubated. Ventilator: FiO2 50% PEEP of 12. Levo fed was discontinued. Remains on propofol. 2 feeding. Telemetry: Sinus rhythm. June 15: ICU. Intubated. Ventilator: FiO2 70 PEEP of 10. Telemetry: Sinus rhythm.. Had a lot of secretions removed through his endotracheal tube. [email or web address] Thick colored. Started on IV cefepime. June 16: ICU. Intubated. Ventilator FiO2 85 PEEP of 12. Back on a small dose of levo fed. Maintain on propofol. Getting 2 feeding. Congestive increasing secretions. Dr. Hennessy spoke to patient's physician/economic development director at [place] Dr. Ferrera and he is accepted the patient to be transferred that given history of significant pulmonary hypertension. June 17: ICU. Intubated. Ventilator: FiO2 85 PEEP of 12. Sinus rhythm. Febrile. Vancomycin added. Patient getting transferred to [facility] for higher level of care given medical treatment of pulmonary hypertension. Sputum culture showing presumptive staph aureus On examination: VITAL SIGNS: Low-grade fever, 1:30, 30, 115/73, 90% on the ventilator GENERAL APPEARANCE: Laying in bed, intubated tube feeding RESPIRATORY: Respiratory effort increased Rest of the exam per pulmonary and nursing INVESTIGATIONS, reviewed in the clinical context: 5028: White count 7.2 hemoglobin 13.5 platelets 319 potassium 4.5 creatinine 0.61 June 16: White count 16.7 hemoglobin 12.7 platelets 319 potassium 3.9 creatinine 0.44 procalcitonin 0.14 June 15: White count 14.1 hemoglobin 12.5 platelets 277 potassium 3.6 BUN 41 creatinine 0.49 June 14: White count 14 hemoglobin 12.5 platelets 256 potassium 3.4 BUN 36 creatinine 0.51 June 13: White count 9.4 hemoglobin 12.2 platelets 221 sodium 139 potassium 3.8 BUN 32 creatinine 0.51 White count 12.8 hemoglobin 12.4 platelets 205. ABG: PH 7.3 pCO2 52 pO2 82 sodium 139 potassium 4.2 creatinine 0.51 albumin 3 Chest CTA: No PE. Interstitial edema. Bilateral pleural effusion. Some pericardial effusion. 2-D echocardiogram: EF 50-55%, right ventricle is severely enlarged. Moderate to severe tricuspid regurgitation. Severe pulmonary hypertension. Assessment and plan: -COVID-19 bilateral pneumonitis, significant: slow to respond IV dexamethasone. -Secondary pneumonia, suspect gram-negative organism, cultures showing presumptive staph aureus IV cefepime. Vancomycin added -Septic shock: Present IV levo fed: Small dose -Acute on chronic hypoxic respiratory failure secondary to COVID-19 pneumonia and COPD: Not improving Ventilator 85/12 -Chronic hypoxic respiratory failure secondary to COPD On home oxygen -Severe secondary pulmonary hypertension Outpatient opsumit -Essential hypertension Outpatient Coreg. Currently low BP -Hyperlipidemia Lipitor 20 mg daily at bedtime -Acute diastolic congestive heart failure: Slow to respond Lasix 40 mg IV every 12 -Hypoalbuminemia, acute phase reactant Disposition: [facility] for higher level of care Plan - Discharge Summary Discharge Rx Participant: No New Discharge Prescriptions: No Action Aspirin 81 mg PO DAILY Albuterol Sulfate [Ventolin HFA] 2 puff INHALATION RT-Q6H PRN PRN Reason: Shortness Of Breath Macitentan [Opsumit] 10 mg PO DAILY Cholecalciferol [Vitamin D3 (125 Mcg = 5000 Iu)] 125 mcg PO DAILY Tiotropium [place] [Spiriva] 1 cap INHALATION RT-DAILY Budesonide/Formoterol Fumarate [Symbicort 160-4.5 Mcg Inhaler] 1 puff INHALATION RT-BID carvediloL [Coreg] 3.125 mg PO DAILY Potassium Chloride ER [K-Dur 10] 10 meq PO BID Furosemide [Lasix] 40 mg PO BID Ferrous Sulfate [Feosol] 325 mg PO DAILY Atorvastatin [Lipitor] 20 mg PO HS amLODIPine [Norvasc] 2.5 mg PO DAILY Discharge Medication List Albuterol Sulfate [Ventolin HFA] 2 puff INHALATION RT-Q6H PRN 06/08/21 [History] Aspirin 81 mg PO DAILY 06/08/21 [History] Atorvastatin [Lipitor] 20 mg PO HS 06/08/21 [History] Budesonide/Formoterol Fumarate [Symbicort 160-4.5 Mcg Inhaler] 1 puff INHALATION RT-BID 06/08/21 [History] Cholecalciferol [Vitamin D3 (125 Mcg = 5000 Iu)] 125 mcg PO DAILY 06/08/21 [History] Ferrous Sulfate [Feosol] 325 mg PO DAILY 06/08/21 [History] Furosemide [Lasix] 40 mg PO BID 06/08/21 [History] Macitentan [Opsumit] 10 mg PO DAILY 06/08/21 [History] Potassium Chloride ER [K-Dur 10] 10 meq PO BID 06/08/21 [History] Tiotropium Carolina [Spiriva] 1 cap INHALATION RT-DAILY 06/08/21 [History] amLODIPine [Norvasc] 2.5 mg PO DAILY 06/08/21 [History] carvediloL [Coreg] 3.125 mg PO DAILY 06/08/21 [History] Follow up Appointment(s)/Referral(s): [facility], [NON-STAFF] - None,Stated [REFERRING] - 1-2 days Discharge Disposition: OTHER INSTITUTION NOT DEFINED
== END 2021-06-17 17:11 | disposition short-term general hospital (02) | DRG 870 ==
LOC: EC 09:00 → 2SICU 09:36
PROVIDERS: ADMIT Hospitalist; ATTEND Hospitalist
PROC: 5A1955Z Respiratory Ventilation, Greater than 96 Consecutive Hours (ICD-10-PCS; principal; 2021-06-08)
PROC: 0BH17EZ Insertion of Endotracheal Airway into Trachea, Via Natural or Artificial Opening (ICD-10-PCS; 2021-06-08)
PROC: 03HY32Z Insertion of Monitoring Device into Upper Artery, Percutaneous Approach (ICD-10-PCS; 2021-06-08)
PROC: 4A133J1 Monitoring of Arterial Pulse, Peripheral, Percutaneous Approach (ICD-10-PCS; 2021-06-08)
PROC: 4A133B1 Monitoring of Arterial Pressure, Peripheral, Percutaneous Approach (ICD-10-PCS; 2021-06-08)
PROC: 02HV33Z Insertion of Infusion Device into Superior Vena Cava, Percutaneous Approach (ICD-10-PCS; 2021-06-08)
PROC: 3E033XZ Introduction of Vasopressor into Peripheral Vein, Percutaneous Approach (ICD-10-PCS; 2021-06-08)
PROC: 3E0G76Z Introduction of Nutritional Substance into Upper GI, Via Natural or Artificial Opening (ICD-10-PCS; 2021-06-08)
PROC: 0D9670Z Drainage of Stomach with Drainage Device, Via Natural or Artificial Opening (ICD-10-PCS; 2021-06-08)
PROC: 02HV33Z Insertion of Infusion Device into Superior Vena Cava, Percutaneous Approach (ICD-10-PCS; 2021-06-13)
DX: A41.89 Other specified sepsis (principal); J96.22 Acute and chronic respiratory failure with hypercapnia; J96.21 Acute and chronic respiratory failure with hypoxia; J12.82 Pneumonia due to coronavirus disease 2019; R65.21 Severe sepsis with septic shock; U07.1 COVID-19; I50.31 Acute diastolic (congestive) heart failure; J15.211 Pneumonia due to Methicillin susceptible Staphylococcus aureus; J98.11 Atelectasis; J43.2 Centrilobular emphysema; I11.0 Hypertensive heart disease with heart failure; I27.29 Other secondary pulmonary hypertension; E88.09 Other disorders of plasma-protein metabolism, not elsewhere classified; E78.5 Hyperlipidemia, unspecified; I07.1 Rheumatic tricuspid insufficiency; I45.10 Unspecified right bundle-branch block; R77.8 Other specified abnormalities of plasma proteins; R91.8 Other nonspecific abnormal finding of lung field; R59.0 Localized enlarged lymph nodes; Z99.81 Dependence on supplemental oxygen; Z79.82 Long term (current) use of aspirin; Z79.51 Long term (current) use of inhaled steroids; Z79.899 Other long term (current) drug therapy; Z87.891 Personal history of nicotine dependence; Z71.3 Dietary counseling and surveillance; Z88.2 Allergy status to sulfonamides
CPT/HCPCS: 31500; 36415; 36573; 36600; 71045; 71275; 80048; 80053; 82803; 82805; 83605; 83615; 83735; 83880; 84132; 84145; 84484; 85025; 85027; 85379; 85610; 85730; 86140; 87040; 87070; 87077; 87186; 87205; 87635; 93005; 93306; 94002; 94003; 96361; 96374; 99291